=== PATIENT | female | born 1980 | race Caucasian/White ===

== ENCOUNTER 2017-03-13 03:23 | Emergency (ER) | payer SELFPAY ==
[~2017-03-13] VITALS: Ht 172.7 cm; Wt 172.4 kg
[~2017-03-13 03:23] MED LIST: ANTOXYBENA OT; ATOR10; ATOR40TA PO; Adipex-P37.5 M1 PO; Amaryl2 MG PO; Aspirin EC325 MG PO; Avastin25 MG/ML; BUPR150ER PO; CEPH500 PO; CLIN300 PO; CYCL10 PO; DIPATR PO; FURO20 PO; FURO80 PO; GLIP2.5ER PO; HYDACE5 PO; HYDACE5325 PO; INSDET100 SC; INSU7030P SUBQ; INSULANPEN SC; LEVEMIR FL100 UNIT/1; METF500 PO; METF850 PO; Norco 5-325 Ta1 EACH PO; Novolin R100 UNIT/M SC; ONDA4ODT MM; ONDA4ODT PO; OXYACE5T PO; PANT20 PO; PHENTERMINE; POTCHL20ER PO; PROM25 PO; RXCYCL10 PO; RXOXYACE PO; SULTRIDS PO; SULTRISS PO; Synthroid100 MCG PO; TOPI100 PO; Zofran Odt8 MG SL; [UNRECOGNIZED DRUG - OTHER] SC; levothyroxine PO; potasium
[2017-03-13 04:24] LABS: Source, Urine Clean Catch
[2017-03-13 04:29] LABS: Bilirubin, Urine Neg (Neg); Blood, Urine Neg (Neg); Glucose Qualitative, Urine 4+ (Neg); Ketones, Urine Neg (Neg); Leukocyte Esterase, Urine Neg (Neg); Nitrite, Urine Neg (Neg); Protein, Urine Neg (Neg); Specific Gravity, Urine 1.015 (1.003-1.022); Urobilinogen, Urine NORM (Normal)
[2017-03-13 04:31] LABS: Appearance, Urine Clear (Clear); Color, Urine Yellow (P-Yellow)
[2017-03-13 05:00] LABS: Calcium, Ionized (POC) 1.17 mmol/L (1.10-1.46); Chloride (POC) 98 mmol/L (98-108); Creatinine (POC) 0.5 mg/dL (0.6-1.0); Glucose (ISTAT POC) 345 mg/dL (70-99); Hemoglobin (POC) 13.6 g/dL (12.0-16.0); Potassium (POC) 3.9 mmol/L (3.5-5.5); Sodium (POC) 135 mmol/L (135-148); Total CO2 (POC) 26 mmol/L (21-32)
[2017-03-13 05:55] LABS: BASOPHILS ABSOLUTE AUTO 0.03 K/mm3 (0.00-0.23); BASOPHILS PERCENT AUTO 0 % (0-2); EOSINOPHILS ABSOLUTE AUTO 0.27 K/mm3 (0.00-0.68); EOSINOPHILS PERCENT AUTO 3 % (0-6); Hematocrit 38.3 % (33.0-51.0); IMMATURE GRAN ABSOLUTE AUTO 0.05 K/mm3 (0.00-0.10); IMMATURE GRAN PERCENT AUTO 1 % (0-1); LYMPHOCYTES ABSOLUTE AUTO 2.57 K/mm3 (0.84-5.20); LYMPHOCYTES PERCENT AUTO 24 % (21-46); MONOCYTES PERCENT AUTO 7 % (4-13); Mean Corpuscular HGB 30.8 pg (26.0-34.0); Mean Corpuscular HGB Conc 33.9 g/dL (31.5-36.5); Mean Corpuscular Volume 91 fL (80-100); NEUTROPHILS ABSOLUTE AUTO 7.22 K/mm3 (1.96-9.15); NEUTROPHILS PERCENT AUTO 66 % (41-73); Platelet Count 198 K/mm3 (150-400); RDW Coefficient Variation 13.5 % (11.7-14.2); RDW Standard Deviation 45.7 fL (35.1-46.3); Red Blood Cell Count 4.22 M/mm3 (3.80-5.20); White Blood Cell Count 10.94 K/mm3 (4.00-11.30)
[2017-03-13 06:18] LABS: Beta-hydroxybutyrate 1.3 mg/dL (0.2-2.8); Magnesium, Blood 1.9 mg/dL (1.6-2.4)
[2017-03-13 06:32] LABS: Alanine Aminotransfer (ALT/SGP 28 U/L (12-78); Albumin, Blood 3.4 g/dL (3.4-5.0); Albumin/Globulin Ratio 0.9 (0.8-1.8); Alk Phos 80 U/L (50-136); Anion Gap 7 mmol/L (6-16); Aspartate Aminotrans (AST/SGOT 12 U/L (12-37); Bilirubin, Total 0.9 mg/dL (0.1-1.0); Blood Urea Nitrogen 16 mg/dL (8-24); Bun/Creatinine Ratio 36.2 (12.0-20.0); CO2, Blood 28 mmol/L (21-32); Calcium, Blood 8.9 mg/dL (8.5-10.1); Chloride, Blood 100 mmol/L (98-108); Creatinine, Blood 0.44 mg/dL (0.40-1.00); Globulin, Blood 3.8 g/dL (2.2-4.0); Glomerular Filtration Rate >60 (60-); Glucose, Blood 316 mg/dL (70-99); Potassium, Blood 3.7 mmol/L (3.5-5.5); Sodium, Blood 135 mmol/L (136-145); Total Protein, Blood 7.2 g/dL (6.4-8.2)
[2017-03-13] MEDS ORDERED: Norco 5-325 Ta1 EACH PO (06:41)
[2017-03-13] MEDS ORDERED: Keflex500 MG PO (06:41)
[2017-03-13] MEDS ORDERED: Bactrim 400-801 EACH PO (06:41)
[2017-09-23] MEDS ORDERED: PROM25 PO (13:16)
[2017-09-23] MEDS ORDERED: Abilify2 MG (13:36)
[2017-09-24] MEDS ORDERED: Omeprazole20 M1 PO (13:47)
[2017-09-24] MEDS ORDERED: ONDA4ODT MM (13:47)
[2017-09-24] MEDS ORDERED: PROM25S PR (13:47)
[2017-09-24] MEDS ORDERED: SUCR1 PO (13:47)
[2017-11-25] MEDS ORDERED: Diflucan100 MG PO (19:51)
[2017-11-25] MEDS ORDERED: CEFD300 PO (19:51)
== END 2017-03-13 08:46 | disposition home or self-care (01) ==
LOC: ER 03:23
PROVIDERS: Emergency Medicine
DX: L02.211 Cutaneous abscess of abdominal wall (principal); N83.202 Unspecified ovarian cyst, left side; E11.65 Type 2 diabetes mellitus with hyperglycemia; E66.01 Morbid (severe) obesity due to excess calories; Z91.018 Allergy to other foods; Z91.048 Other nonmedicinal substance allergy status; Z90.49 Acquired absence of other specified parts of digestive tract; Z68.43 Body mass index [BMI] 50.0-59.9, adult
CPT/HCPCS: 36415; 74177; 80047; 80053; 81003; 81025; 82010; 83605; 83735; 85014; 85025; 96361; 96365; 96366; 96375; 99284; J1885; J3370; J7030; J7050; Q9967

== ENCOUNTER 2017-07-15 11:38 | Emergency (ER) | payer OTHER ==
[~2017-07-15] VITALS: Ht 172.7 cm; Wt 169.2 kg
[~2017-07-15 11:38] MED LIST changes: +Bactrim 400-801 EACH PO; +Keflex500 MG PO
[2017-07-15] MEDS ORDERED: Prednisone20 MG PO (12:35)
[2017-07-15] MEDS ORDERED: Percocet 5-3251 EACH PO (12:35)
== END 2017-07-15 12:53 | disposition home or self-care (01) ==
LOC: ER 11:38
DX: M54.41 Lumbago with sciatica, right side (principal); Z91.018 Allergy to other foods; Z91.048 Other nonmedicinal substance allergy status; E11.9 Type 2 diabetes mellitus without complications
CPT/HCPCS: 81025

== ENCOUNTER 2017-07-18 05:36 | Emergency (ER) | payer OTHER ==
[~2017-07-18] VITALS: Ht 172.7 cm; Wt 169.2 kg
[~2017-07-18 05:36] MED LIST changes: +Percocet 5-3251 EACH PO; +Prednisone20 MG PO
[2017-07-18] MEDS ORDERED: Norco 10-325 T1 EACH PO (06:59)
[2017-07-18] MEDS ORDERED: Valium5 MG PO (06:59)
== END 2017-07-18 07:56 | disposition home or self-care (01) ==
LOC: ER 05:36
DX: E11.9 Type 2 diabetes mellitus without complications (principal); Z91.018 Allergy to other foods
CPT/HCPCS: J2550; J3010

== ENCOUNTER → 2017-10-14 | Outpatient (CLI) | payer OTHER ==
[~2017-10-14] MED LIST changes: +Abilify2 MG; +Norco 10-325 T1 EACH PO; +Omeprazole20 M1 PO; +PROM25S PR; +SUCR1 PO; +Valium5 MG PO
[2017-10-14 11:26] LABS: BASOPHILS ABSOLUTE AUTO 0.02 K/mm3 (0.00-0.23); BASOPHILS PERCENT AUTO 0 % (0-2); EOSINOPHILS ABSOLUTE AUTO 0.07 K/mm3 (0.00-0.68); EOSINOPHILS PERCENT AUTO 1 % (0-6); Hematocrit 42.6 % (33.0-51.0); Hemoglobin 15.1 g/dL (11.5-16.0); IMMATURE GRAN ABSOLUTE AUTO 0.03 K/mm3 (0.00-0.10); IMMATURE GRAN PERCENT AUTO 0 % (0-1); LYMPHOCYTES PERCENT AUTO 15 % (21-46); MONOCYTES ABSOLUTE AUTO 0.43 K/mm3 (0.16-1.47); MONOCYTES PERCENT AUTO 5 % (4-13); Mean Corpuscular HGB 32.1 pg (26.0-34.0); Mean Corpuscular HGB Conc 35.4 g/dL (31.5-36.5); Mean Corpuscular Volume 91 fL (80-100); Mean Platelet Volume 9.8 fL (9.1-12.4); NEUTROPHILS ABSOLUTE AUTO 7.06 K/mm3 (1.96-9.15); NEUTROPHILS PERCENT AUTO 79 % (41-73); Platelet Count 219 K/mm3 (150-400); RDW Coefficient Variation 13.6 % (11.7-14.2); RDW Standard Deviation 44.7 fL (35.1-46.3); White Blood Cell Count 8.91 K/mm3 (4.00-11.30)
[2017-10-14 11:42] LABS: Alanine Aminotransfer (ALT/SGP 47 U/L (12-78); Albumin, Blood 3.9 g/dL (3.4-5.0); Albumin/Globulin Ratio 1.1 (0.8-1.8); Alk Phos 63 U/L (40-126); Anion Gap 10 mmol/L (6-16); Aspartate Aminotrans (AST/SGOT 20 U/L (12-37); Bilirubin, Total 1.9 mg/dL (0.1-1.0); Blood Urea Nitrogen 16 mg/dL (8-24); Bun/Creatinine Ratio 22.9 (12.0-20.0); CO2, Blood 26 mmol/L (21-32); Calcium, Blood 9.3 mg/dL (8.5-10.1); Chloride, Blood 97 mmol/L (98-108); Globulin, Blood 3.7 g/dL (2.2-4.0); Glomerular Filtration Rate >60 (60-); Glucose, Blood 376 mg/dL (70-99); Potassium, Blood 3.9 mmol/L (3.5-5.5); Sodium, Blood 133 mmol/L (136-145); Total Protein, Blood 7.6 g/dL (6.4-8.2); Troponin I <0.017 ng/mL (0.000-0.040)
== END | disposition home or self-care (01) ==
LOC: LAB SHORT 11:23 → LAB EV 11:23
PROVIDERS: Physician Assistant Medical
DX: R07.9 Chest pain, unspecified (principal); R10.13 Epigastric pain
CPT/HCPCS: 80053; 83690; 84484; 85025

== ENCOUNTER 2017-10-18 15:01 | Emergency (ER) | payer OTHER ==
[~2017-10-18] VITALS: Ht 172.7 cm; Wt 150.1 kg
[2017-10-18 15:52] LABS: BASOPHILS ABSOLUTE AUTO 0.01 K/mm3 (0.00-0.23); BASOPHILS PERCENT AUTO 0 % (0-2); EOSINOPHILS ABSOLUTE AUTO 0.04 K/mm3 (0.00-0.68); EOSINOPHILS PERCENT AUTO 1 % (0-6); Hematocrit 41.6 % (33.0-51.0); Hemoglobin 14.5 g/dL (11.5-16.0); IMMATURE GRAN ABSOLUTE AUTO 0.03 K/mm3 (0.00-0.10); IMMATURE GRAN PERCENT AUTO 0 % (0-1); LYMPHOCYTES ABSOLUTE AUTO 1.16 K/mm3 (0.84-5.20); LYMPHOCYTES PERCENT AUTO 16 % (21-46); MONOCYTES ABSOLUTE AUTO 0.32 K/mm3 (0.16-1.47); MONOCYTES PERCENT AUTO 4 % (4-13); Mean Corpuscular HGB 31.9 pg (26.0-34.0); Mean Corpuscular HGB Conc 34.9 g/dL (31.5-36.5); Mean Corpuscular Volume 92 fL (80-100); NEUTROPHILS ABSOLUTE AUTO 5.72 K/mm3 (1.96-9.15); NEUTROPHILS PERCENT AUTO 79 % (41-73); Platelet Count 224 K/mm3 (150-400); RDW Coefficient Variation 13.4 % (11.7-14.2); RDW Standard Deviation 45.5 fL (35.1-46.3); Red Blood Cell Count 4.54 M/mm3 (3.80-5.20); White Blood Cell Count 7.28 K/mm3 (4.00-11.30)
[2017-10-18 15:54] LABS: Alanine Aminotransfer (ALT/SGP 47 U/L (12-78); Albumin, Blood 3.6 g/dL (3.4-5.0); Alk Phos 60 U/L (50-136); Anion Gap 10 mmol/L (6-16); Aspartate Aminotrans (AST/SGOT 26 U/L (12-37); Bilirubin, Total 1.5 mg/dL (0.1-1.0); Blood Urea Nitrogen 11 mg/dL (8-24); Bun/Creatinine Ratio 28.6 (12.0-20.0); CO2, Blood 24 mmol/L (21-32); Calcium, Blood 8.7 mg/dL (8.5-10.1); Chloride, Blood 103 mmol/L (98-108); Creatinine, Blood 0.38 mg/dL (0.40-1.00); Globulin, Blood 3.7 g/dL (2.2-4.0); Glomerular Filtration Rate >60 (60-); Glucose, Blood 320 mg/dL (70-99); Potassium, Blood 3.7 mmol/L (3.5-5.5); Sodium, Blood 137 mmol/L (136-145); Total Protein, Blood 7.3 g/dL (6.4-8.2)
[2017-10-18] MEDS ORDERED: METO10 PO (18:06)
[2017-10-18] MEDS ORDERED: Carafate1 GM/10 ML PO (18:06)
== END 2017-10-18 18:30 | disposition home or self-care (01) ==
LOC: ER 15:01
PROVIDERS: Physician Assistant
DX: E11.65 Type 2 diabetes mellitus with hyperglycemia (principal); R10.12 Left upper quadrant pain; R11.2 Nausea with vomiting, unspecified; K21.9 Gastro-esophageal reflux disease without esophagitis; Z91.018 Allergy to other foods; Z91.048 Other nonmedicinal substance allergy status; Z79.899 Other long term (current) drug therapy
CPT/HCPCS: 36415; 80053; 83690; 85025; 96361; 96374; 96375; 99283-25; J2405; J2765; J3490; J7030

== ENCOUNTER → 2018-05-14 | Outpatient (CLI) | payer OTHER ==
[~2018-05-14] MED LIST changes: +CEFD300 PO; +Carafate1 GM/10 ML PO; +Diflucan100 MG PO; +METO10 PO
[2018-05-14 11:27] LABS: BASOPHILS ABSOLUTE AUTO 0.03 K/mm3 (0.00-0.23); BASOPHILS PERCENT AUTO 0 % (0-2); EOSINOPHILS ABSOLUTE AUTO 0.22 K/mm3 (0.00-0.68); EOSINOPHILS PERCENT AUTO 2 % (0-6); Hematocrit 42.8 % (33.0-51.0); Hemoglobin 14.7 g/dL (11.5-16.0); IMMATURE GRAN ABSOLUTE AUTO 0.05 K/mm3 (0.00-0.10); IMMATURE GRAN PERCENT AUTO 1 % (0-1); LYMPHOCYTES ABSOLUTE AUTO 1.63 K/mm3 (0.84-5.20); LYMPHOCYTES PERCENT AUTO 17 % (21-46); MONOCYTES PERCENT AUTO 5 % (4-13); Mean Corpuscular HGB 31.1 pg (26.0-34.0); Mean Corpuscular HGB Conc 34.3 g/dL (31.5-36.5); Mean Corpuscular Volume 91 fL (80-100); Mean Platelet Volume 10.4 fL (9.1-12.4); NEUTROPHILS ABSOLUTE AUTO 7.23 K/mm3 (1.96-9.15); NEUTROPHILS PERCENT AUTO 75 % (41-73); Platelet Count 205 K/mm3 (150-400); RDW Coefficient Variation 13.4 % (11.7-14.2); RDW Standard Deviation 44.7 fL (35.1-46.3); Red Blood Cell Count 4.73 M/mm3 (3.80-5.20); White Blood Cell Count 9.66 K/mm3 (4.00-11.30)
[2018-05-14 11:36] LABS: Anion Gap 10 mmol/L (6-16); Blood Urea Nitrogen 11 mg/dL (8-24); Bun/Creatinine Ratio 16.7 (12.0-20.0); CO2, Blood 27 mmol/L (21-32); Calcium, Blood 8.9 mg/dL (8.5-10.1); Chloride, Blood 101 mmol/L (98-108); Creatinine, Blood 0.66 mg/dL (0.40-1.00); Glomerular Filtration Rate >60 (60-); Glucose, Blood 339 mg/dL (70-99); Sodium, Blood 138 mmol/L (136-145)
== END | disposition home or self-care (01) ==
LOC: LAB EV 11:18 → LAB SHORT 11:18
PROVIDERS: Physician Assistant Surgical
DX: N12 Tubulo-interstitial nephritis, not specified as acute or chronic (principal)
CPT/HCPCS: 80048; 85025; 87077; 87086; 87186

== ENCOUNTER 2018-05-20 09:15 | Emergency (ER) | payer OTHER ==
[~2018-05-20] VITALS: Ht 172.7 cm; Wt 163.3 kg
[2018-05-20 10:44] LABS: BASOPHILS ABSOLUTE AUTO 0.03 K/mm3 (0.00-0.23); BASOPHILS PERCENT AUTO 0 % (0-2); EOSINOPHILS ABSOLUTE AUTO 0.15 K/mm3 (0.00-0.68); EOSINOPHILS PERCENT AUTO 2 % (0-6); Hematocrit 41.4 % (33.0-51.0); Hemoglobin 13.9 g/dL (11.5-16.0); IMMATURE GRAN ABSOLUTE AUTO 0.04 K/mm3 (0.00-0.10); IMMATURE GRAN PERCENT AUTO 1 % (0-1); LYMPHOCYTES PERCENT AUTO 18 % (21-46); MONOCYTES ABSOLUTE AUTO 0.52 K/mm3 (0.16-1.47); MONOCYTES PERCENT AUTO 7 % (4-13); Mean Corpuscular HGB 31.5 pg (26.0-34.0); Mean Corpuscular HGB Conc 33.6 g/dL (31.5-36.5); Mean Corpuscular Volume 94 fL (80-100); Mean Platelet Volume 10.3 fL (9.1-12.4); NEUTROPHILS ABSOLUTE AUTO 5.57 K/mm3 (1.96-9.15); NEUTROPHILS PERCENT AUTO 72 % (41-73); Platelet Count 188 K/mm3 (150-400); RDW Coefficient Variation 13.2 % (11.7-14.2); RDW Standard Deviation 45.5 fL (35.1-46.3); Red Blood Cell Count 4.41 M/mm3 (3.80-5.20); White Blood Cell Count 7.71 K/mm3 (4.00-11.30)
[2018-05-20 11:26] LABS: Alanine Aminotransfer (ALT/SGP 29 U/L (12-78); Albumin, Blood 3.6 g/dL (3.4-5.0); Albumin/Globulin Ratio 0.9 (0.8-1.8); Alk Phos 80 U/L (50-136); Anion Gap 7 mmol/L (6-16); Aspartate Aminotrans (AST/SGOT 14 U/L (12-37); Blood Urea Nitrogen 10 mg/dL (8-24); Bun/Creatinine Ratio 27.3 (12.0-20.0); CO2, Blood 25 mmol/L (21-32); Calcium, Blood 8.8 mg/dL (8.5-10.1); Chloride, Blood 104 mmol/L (98-108); Creatinine, Blood 0.37 mg/dL (0.40-1.00); Globulin, Blood 3.8 g/dL (2.2-4.0); Glomerular Filtration Rate >60 (60-); Glucose, Blood 336 mg/dL (70-99); Sodium, Blood 136 mmol/L (136-145); Total Protein, Blood 7.4 g/dL (6.4-8.2)
[2018-05-20 11:58] LABS: Source, Urine Clean Catch
[2018-05-20 12:02] LABS: Bilirubin, Urine Neg (Neg); Blood, Urine Neg (Neg); Glucose Qualitative, Urine 4+ (Neg); Ketones, Urine 3+ (Neg); Leukocyte Esterase, Urine Neg (Neg); Nitrite, Urine Neg (Neg); Protein, Urine Neg (Neg); Specific Gravity, Urine 1.015 (1.003-1.022); Urobilinogen, Urine NORM (Normal); pH, Urine 6.5 (5.0-8.0)
[2018-05-20 12:05] LABS: Appearance, Urine Clear (Clear); Color, Urine Yellow (P-Yellow)
[2018-05-20] MEDS ORDERED: Flagyl500 MG PO (12:14)
== END 2018-05-20 12:46 | disposition home or self-care (01) ==
LOC: ER 09:15
PROVIDERS: Emergency Medicine
DX: N83.202 Unspecified ovarian cyst, left side (principal); R19.7 Diarrhea, unspecified; E11.65 Type 2 diabetes mellitus with hyperglycemia; Z91.018 Allergy to other foods; Z91.048 Other nonmedicinal substance allergy status; Z79.899 Other long term (current) drug therapy
CPT/HCPCS: 74176; 80053; 81003; 82947; 83690; 85025; 96361; 96374; 99284-25; J2405; J7030

== ENCOUNTER 2018-08-13 18:15 | Emergency (ER) | payer OTHER ==
[~2018-08-13] VITALS: Ht 172.7 cm; Wt 161.0 kg
[~2018-08-13 18:15] MED LIST changes: +Flagyl500 MG PO
[2018-08-13 19:03] LABS: BASOPHILS ABSOLUTE AUTO 0.03 K/mm3 (0.00-0.23); BASOPHILS PERCENT AUTO 0 % (0-2); EOSINOPHILS ABSOLUTE AUTO 0.08 K/mm3 (0.00-0.68); EOSINOPHILS PERCENT AUTO 1 % (0-6); Hematocrit 45.1 % (33.0-51.0); Hemoglobin 15.7 g/dL (11.5-16.0); IMMATURE GRAN ABSOLUTE AUTO 0.03 K/mm3 (0.00-0.10); IMMATURE GRAN PERCENT AUTO 0 % (0-1); LYMPHOCYTES ABSOLUTE AUTO 1.88 K/mm3 (0.84-5.20); LYMPHOCYTES PERCENT AUTO 19 % (21-46); MONOCYTES ABSOLUTE AUTO 0.59 K/mm3 (0.16-1.47); MONOCYTES PERCENT AUTO 6 % (4-13); Mean Corpuscular HGB 31.3 pg (26.0-34.0); Mean Corpuscular HGB Conc 34.8 g/dL (31.5-36.5); Mean Corpuscular Volume 90 fL (80-100); Mean Platelet Volume 10.7 fL (9.1-12.4); NEUTROPHILS ABSOLUTE AUTO 7.29 K/mm3 (1.96-9.15); NEUTROPHILS PERCENT AUTO 74 % (41-73); Platelet Count 229 K/mm3 (150-400); RDW Standard Deviation 42.5 fL (35.1-46.3); Red Blood Cell Count 5.02 M/mm3 (3.80-5.20)
[2018-08-13 19:17] LABS: Alanine Aminotransfer (ALT/SGP 30 U/L (12-78); Albumin, Blood 4.1 g/dL (3.4-5.0); Alk Phos 88 U/L (50-136); Anion Gap 13 mmol/L (6-16); Aspartate Aminotrans (AST/SGOT 30 U/L (12-37); Bilirubin, Total 1.6 mg/dL (0.1-1.0); Blood Urea Nitrogen 14 mg/dL (8-24); CO2, Blood 20 mmol/L (21-32); Calcium, Blood 9.6 mg/dL (8.5-10.1); Chloride, Blood 103 mmol/L (98-108); Creatinine, Blood 0.42 mg/dL (0.40-1.00); Globulin, Blood 4.3 g/dL (2.2-4.0); Glomerular Filtration Rate >60 (60-); Glucose, Blood 395 mg/dL (70-99); Potassium, Blood 4.6 mmol/L (3.5-5.5); Sodium, Blood 136 mmol/L (136-145); Total Protein, Blood 8.4 g/dL (6.4-8.2)
[2018-08-13] MEDS ORDERED: Omeprazole20 M1 PO (20:13)
[2018-08-13] MEDS ORDERED: ONDA4ODT MM (20:13)
[2018-08-13] MEDS ORDERED: ACETAMINOPHEN500 MG PO (20:14)
[2018-08-13 20:27] LABS: Source, Urine Clean Catch
[2018-08-13 20:31] LABS: Bilirubin, Urine Neg (Neg); Blood, Urine 1+ (Neg); Glucose Qualitative, Urine 4+ (Neg); Ketones, Urine 4+ (Neg); Leukocyte Esterase, Urine 1+ (Neg); Nitrite, Urine Neg (Neg); Protein, Urine 1+ (Neg); Specific Gravity, Urine 1.015 (1.003-1.022); Urobilinogen, Urine NORM (Normal)
[2018-08-13 20:46] LABS: Appearance, Urine Hazy (Clear); Color, Urine Yellow (P-Yellow)
[2018-08-13 20:47] LABS: White Blood Cells, Urine 25-50 /hpf (0-5)
[2018-08-13 20:48] LABS: Bacteria Few /hpf; Red Blood Cells, Urine 0-2 /hpf (0-2); Squamous Epithelial Cells Many /hpf (Few)
== END 2018-08-13 20:34 | disposition home or self-care (01) ==
LOC: ER 18:15
PROVIDERS: Physician Assistant
DX: K27.9 Peptic ulcer, site unspecified, unspecified as acute or chronic, without hemorrhage or perforation (principal); E11.9 Type 2 diabetes mellitus without complications; F17.210 Nicotine dependence, cigarettes, uncomplicated; Z79.899 Other long term (current) drug therapy
CPT/HCPCS: 36415; 74176; 80053; 81001; 83690; 85025; 87077; 87086; 87186; 96374; 99284-25; J1630

== ENCOUNTER 2018-08-15 12:27 | Emergency (ER) | payer OTHER ==
[~2018-08-15] VITALS: Ht 172.7 cm; Wt 158.8 kg
[~2018-08-15 12:27] MED LIST changes: +ACETAMINOPHEN500 MG PO
[2018-08-15 13:06] LABS: BASOPHILS ABSOLUTE AUTO 0.02 K/mm3 (0.00-0.23); BASOPHILS PERCENT AUTO 0 % (0-2); EOSINOPHILS PERCENT AUTO 1 % (0-6); Hematocrit 42.2 % (33.0-51.0); Hemoglobin 14.4 g/dL (11.5-16.0); IMMATURE GRAN ABSOLUTE AUTO 0.03 K/mm3 (0.00-0.10); IMMATURE GRAN PERCENT AUTO 0 % (0-1); LYMPHOCYTES ABSOLUTE AUTO 1.56 K/mm3 (0.84-5.20); LYMPHOCYTES PERCENT AUTO 19 % (21-46); MONOCYTES ABSOLUTE AUTO 0.46 K/mm3 (0.16-1.47); MONOCYTES PERCENT AUTO 6 % (4-13); Mean Corpuscular HGB 30.6 pg (26.0-34.0); Mean Corpuscular HGB Conc 34.1 g/dL (31.5-36.5); Mean Corpuscular Volume 90 fL (80-100); Mean Platelet Volume 9.8 fL (9.1-12.4); NEUTROPHILS ABSOLUTE AUTO 6.27 K/mm3 (1.96-9.15); NEUTROPHILS PERCENT AUTO 74 % (41-73); Platelet Count 201 K/mm3 (150-400); White Blood Cell Count 8.44 K/mm3 (4.00-11.30)
[2018-08-15 13:30] LABS: Alanine Aminotransfer (ALT/SGP 23 U/L (12-78); Albumin, Blood 3.6 g/dL (3.4-5.0); Alk Phos 76 U/L (50-136); Anion Gap 9 mmol/L (6-16); Aspartate Aminotrans (AST/SGOT 16 U/L (12-37); Bilirubin, Total 1.1 mg/dL (0.1-1.0); Blood Urea Nitrogen 17 mg/dL (8-24); Bun/Creatinine Ratio 35.6 (12.0-20.0); CO2, Blood 24 mmol/L (21-32); Chloride, Blood 103 mmol/L (98-108); Creatinine, Blood 0.48 mg/dL (0.40-1.00); Globulin, Blood 3.6 g/dL (2.2-4.0); Glomerular Filtration Rate >60 (60-); Glucose, Blood 415 mg/dL (70-99); Potassium, Blood 4.3 mmol/L (3.5-5.5); Sodium, Blood 136 mmol/L (136-145); Total Protein, Blood 7.2 g/dL (6.4-8.2)
[2018-08-15] MEDS ORDERED: PROM25 PR (14:33)
== END 2018-08-15 14:41 | disposition home or self-care (01) ==
LOC: ER 12:27
PROVIDERS: Emergency Medicine
DX: R11.2 Nausea with vomiting, unspecified (principal); R10.13 Epigastric pain; F43.9 Reaction to severe stress, unspecified; E11.9 Type 2 diabetes mellitus without complications; K21.9 Gastro-esophageal reflux disease without esophagitis; F17.210 Nicotine dependence, cigarettes, uncomplicated; Z91.018 Allergy to other foods; Z91.048 Other nonmedicinal substance allergy status; Z79.899 Other long term (current) drug therapy
CPT/HCPCS: 36415; 80053; 83690; 84484; 85025; 93005; 93010; 96374; 96375; 99284-25; J1200; J1630; J2405; J7120

== ENCOUNTER 2018-08-18 06:14 | Emergency (ER) | payer OTHER ==
[~2018-08-18] VITALS: Ht 172.7 cm; Wt 158.8 kg
[~2018-08-18 06:14] MED LIST changes: +PROM25 PR
[2018-08-18 07:39] LABS: BASOPHILS ABSOLUTE AUTO 0.02 K/mm3 (0.00-0.23); BASOPHILS PERCENT AUTO 0 % (0-2); EOSINOPHILS ABSOLUTE AUTO 0.05 K/mm3 (0.00-0.68); EOSINOPHILS PERCENT AUTO 1 % (0-6); Hematocrit 43.9 % (33.0-51.0); Hemoglobin 15.2 g/dL (11.5-16.0); IMMATURE GRAN ABSOLUTE AUTO 0.08 K/mm3 (0.00-0.10); IMMATURE GRAN PERCENT AUTO 1 % (0-1); LYMPHOCYTES PERCENT AUTO 19 % (21-46); MONOCYTES ABSOLUTE AUTO 0.58 K/mm3 (0.16-1.47); MONOCYTES PERCENT AUTO 6 % (4-13); Mean Corpuscular HGB 31.1 pg (26.0-34.0); Mean Corpuscular HGB Conc 34.6 g/dL (31.5-36.5); Mean Corpuscular Volume 90 fL (80-100); Mean Platelet Volume 9.9 fL (9.1-12.4); NEUTROPHILS ABSOLUTE AUTO 6.72 K/mm3 (1.96-9.15); NEUTROPHILS PERCENT AUTO 74 % (41-73); Platelet Count 209 K/mm3 (150-400); RDW Coefficient Variation 12.9 % (11.7-14.2); RDW Standard Deviation 42.3 fL (35.1-46.3); Red Blood Cell Count 4.88 M/mm3 (3.80-5.20); White Blood Cell Count 9.15 K/mm3 (4.00-11.30)
[2018-08-18] MEDS ORDERED: PHENERGAN25 MG PR (07:42)
[2018-08-18 07:58] LABS: Alanine Aminotransfer (ALT/SGP 24 U/L (12-78); Albumin, Blood 3.7 g/dL (3.4-5.0); Albumin/Globulin Ratio 0.9 (0.8-1.8); Alk Phos 78 U/L (50-136); Anion Gap 14 mmol/L (6-16); Aspartate Aminotrans (AST/SGOT 17 U/L (12-37); Bilirubin, Total 1.8 mg/dL (0.1-1.0); Blood Urea Nitrogen 14 mg/dL (8-24); Bun/Creatinine Ratio 28.6 (12.0-20.0); CO2, Blood 22 mmol/L (21-32); Calcium, Blood 8.9 mg/dL (8.5-10.1); Chloride, Blood 97 mmol/L (98-108); Creatinine, Blood 0.49 mg/dL (0.40-1.00); Glomerular Filtration Rate >60 (60-); Glucose, Blood 366 mg/dL (70-99); Potassium, Blood 3.7 mmol/L (3.5-5.5); Sodium, Blood 133 mmol/L (136-145); Total Protein, Blood 7.7 g/dL (6.4-8.2)
== END 2018-08-18 08:34 | disposition home or self-care (01) ==
LOC: ER 06:14
PROVIDERS: Emergency Medicine
DX: E11.65 Type 2 diabetes mellitus with hyperglycemia (principal); Z91.048 Other nonmedicinal substance allergy status; Z91.018 Allergy to other foods; K21.9 Gastro-esophageal reflux disease without esophagitis; F17.210 Nicotine dependence, cigarettes, uncomplicated
CPT/HCPCS: 80053; 83690; 85025; 96374; 96375; 99283-25; C9113; J1630

== ENCOUNTER → 2018-08-20 | Outpatient (CLI) | payer OTHER ==
[~2018-08-20] MED LIST changes: +Cymbalta20 MG PO; +DULO60; +PHENERGAN25 MG PR
[2018-08-20 10:00] LABS: BASOPHILS ABSOLUTE AUTO 0.03 K/mm3 (0.00-0.23); BASOPHILS PERCENT AUTO 0 % (0-2); EOSINOPHILS ABSOLUTE AUTO 0.03 K/mm3 (0.00-0.68); EOSINOPHILS PERCENT AUTO 0 % (0-6); Hematocrit 41.7 % (33.0-51.0); Hemoglobin 14.6 g/dL (11.5-16.0); IMMATURE GRAN ABSOLUTE AUTO 0.06 K/mm3 (0.00-0.10); IMMATURE GRAN PERCENT AUTO 1 % (0-1); LYMPHOCYTES ABSOLUTE AUTO 1.81 K/mm3 (0.84-5.20); LYMPHOCYTES PERCENT AUTO 20 % (21-46); MONOCYTES ABSOLUTE AUTO 0.46 K/mm3 (0.16-1.47); MONOCYTES PERCENT AUTO 5 % (4-13); Mean Corpuscular HGB 31.3 pg (26.0-34.0); Mean Corpuscular Volume 90 fL (80-100); Mean Platelet Volume 10.1 fL (9.1-12.4); NEUTROPHILS ABSOLUTE AUTO 6.76 K/mm3 (1.96-9.15); NEUTROPHILS PERCENT AUTO 74 % (41-73); Platelet Count 256 K/mm3 (150-400); RDW Standard Deviation 42.5 fL (35.1-46.3); Red Blood Cell Count 4.66 M/mm3 (3.80-5.20); White Blood Cell Count 9.15 K/mm3 (4.00-11.30)
[2018-08-20 10:10] LABS: Alanine Aminotransfer (ALT/SGP 29 U/L (12-78); Albumin, Blood 3.6 g/dL (3.4-5.0); Albumin/Globulin Ratio 0.9 (0.8-1.8); Alk Phos 70 U/L (50-136); Anion Gap 17 mmol/L (6-16); Aspartate Aminotrans (AST/SGOT 16 U/L (12-37); Bilirubin, Total 1.5 mg/dL (0.1-1.0); Blood Urea Nitrogen 13 mg/dL (8-24); CO2, Blood 18 mmol/L (21-32); Calcium, Blood 8.5 mg/dL (8.5-10.1); Chloride, Blood 99 mmol/L (98-108); Creatinine, Blood 0.43 mg/dL (0.40-1.00); Globulin, Blood 3.9 g/dL (2.2-4.0); Glomerular Filtration Rate >60 (60-); Glucose, Blood 333 mg/dL (70-99); Potassium, Blood 3.7 mmol/L (3.5-5.5); Sodium, Blood 134 mmol/L (136-145); Total Protein, Blood 7.5 g/dL (6.4-8.2)
[2018-08-20 12:14] LABS: Source, Urine Clean Catch
[2018-08-20 14:18] LABS: Bilirubin, Urine Neg (Neg); Blood, Urine 3+ (Neg); Glucose Qualitative, Urine 4+ (Neg); Ketones, Urine 4+ (Neg); Leukocyte Esterase, Urine Neg (Neg); Nitrite, Urine Neg (Neg); Protein, Urine 1+ (Neg); Urobilinogen, Urine NORM (Normal)
[2018-08-20 14:27] LABS: Appearance, Urine Clear (Clear); Color, Urine Yellow (P-Yellow)
[2018-08-20 14:28] LABS: Bacteria Few /hpf; Squamous Epithelial Cells Few /hpf (Few); White Blood Cells, Urine 0-2 /hpf (0-5)
== END | disposition home or self-care (01) ==
LOC: LAB SHORT 08:58 → LAB 08:58
PROVIDERS: Nurse Practitioner
DX: E11.43 Type 2 diabetes mellitus with diabetic autonomic (poly)neuropathy (principal); K31.84 Gastroparesis; E86.0 Dehydration
CPT/HCPCS: 80053; 81001; 85025

== ENCOUNTER 2018-08-21 00:50 | Emergency (ER) | payer OTHER ==
[~2018-08-21 00:50] MED LIST changes: -Cymbalta20 MG PO; -DULO60
[2018-08-22] MEDS ORDERED: DULO60 (07:14)
[2018-08-22] MEDS ORDERED: Cymbalta20 MG PO (14:51)
== END 2018-08-21 02:30 | disposition left against medical advice (07) ==
LOC: ER 00:50
DX: Z53.21 Procedure and treatment not carried out due to patient leaving prior to being seen by health care provider (principal); R11.2 Nausea with vomiting, unspecified

== ENCOUNTER 2018-08-21 22:08 | Inpatient (IN) | payer OTHER ==
[~2018-08-21] VITALS: Ht 172.7 cm; Wt 156.5 kg
[2018-08-21 23:17] LABS: Source, Urine Clean Catch
[2018-08-21 23:19] LABS: Bilirubin, Urine Neg (Neg); Blood, Urine 5+ (Neg); Glucose Qualitative, Urine 4+ (Neg); Ketones, Urine 4+ (Neg); Leukocyte Esterase, Urine Neg (Neg); Nitrite, Urine Neg (Neg); Protein, Urine 2+ (Neg); Specific Gravity, Urine 1.025 (1.003-1.022); Urobilinogen, Urine 1+ (Normal)
[2018-08-21 23:20] LABS: Appearance, Urine Clear (Clear); Color, Urine Yellow (P-Yellow)
[2018-08-21 23:27] LABS: Amorphous Light ({null, 0-Heavy}); Bacteria Many /hpf; Mucus Light ({null, 0-Heavy}); Red Blood Cells, Urine Rare /hpf (0-2); Squamous Epithelial Cells Mod /hpf (Few); White Blood Cells, Urine 0-2 /hpf (0-5)
[2018-08-21 23:38] LABS: BASOPHILS ABSOLUTE AUTO 0.02 K/mm3 (0.00-0.23); BASOPHILS PERCENT AUTO 0 % (0-2); EOSINOPHILS ABSOLUTE AUTO 0.04 K/mm3 (0.00-0.68); EOSINOPHILS PERCENT AUTO 0 % (0-6); Hematocrit 41.3 % (33.0-51.0); Hemoglobin 14.2 g/dL (11.5-16.0); IMMATURE GRAN ABSOLUTE AUTO 0.05 K/mm3 (0.00-0.10); IMMATURE GRAN PERCENT AUTO 1 % (0-1); LYMPHOCYTES ABSOLUTE AUTO 1.76 K/mm3 (0.84-5.20); LYMPHOCYTES PERCENT AUTO 18 % (21-46); MONOCYTES ABSOLUTE AUTO 0.63 K/mm3 (0.16-1.47); MONOCYTES PERCENT AUTO 7 % (4-13); Mean Corpuscular HGB 31.2 pg (26.0-34.0); Mean Corpuscular HGB Conc 34.4 g/dL (31.5-36.5); Mean Corpuscular Volume 91 fL (80-100); Mean Platelet Volume 9.5 fL (9.1-12.4); NEUTROPHILS ABSOLUTE AUTO 7.07 K/mm3 (1.96-9.15); NEUTROPHILS PERCENT AUTO 74 % (41-73); Platelet Count 232 K/mm3 (150-400); RDW Coefficient Variation 13.1 % (11.7-14.2); RDW Standard Deviation 43.5 fL (35.1-46.3); Red Blood Cell Count 4.55 M/mm3 (3.80-5.20); White Blood Cell Count 9.57 K/mm3 (4.00-11.30)
[2018-08-22 00:01] LABS: Alanine Aminotransfer (ALT/SGP 27 U/L (12-78); Albumin, Blood 3.6 g/dL (3.4-5.0); Albumin/Globulin Ratio 0.9 (0.8-1.8); Alk Phos 70 U/L (50-136); Anion Gap 15 mmol/L (6-16); Aspartate Aminotrans (AST/SGOT 12 U/L (12-37); Bilirubin, Total 1.2 mg/dL (0.1-1.0); Blood Urea Nitrogen 8 mg/dL (8-24); Bun/Creatinine Ratio 19.5 (12.0-20.0); CO2, Blood 18 mmol/L (21-32); Calcium, Blood 8.9 mg/dL (8.5-10.1); Chloride, Blood 102 mmol/L (98-108); Creatinine, Blood 0.41 mg/dL (0.40-1.00); Globulin, Blood 3.8 g/dL (2.2-4.0); Glomerular Filtration Rate >60 (60-); Glucose, Blood 251 mg/dL (70-99); Potassium, Blood 3.4 mmol/L (3.5-5.5); Sodium, Blood 135 mmol/L (136-145); Total Protein, Blood 7.4 g/dL (6.4-8.2)
[2018-08-22 00:06] LABS: Beta-hydroxybutyrate 64.1 mg/dL (0.2-2.8)
[2018-08-22] MEDS ORDERED: DULO60 (07:14)
[2018-08-22 07:46] LABS: Hematocrit 42.4 % (33.0-51.0); Hemoglobin 14.5 g/dL (11.5-16.0); Mean Corpuscular HGB Conc 34.2 g/dL (31.5-36.5); Mean Corpuscular Volume 91 fL (80-100); Mean Platelet Volume 9.7 fL (9.1-12.4); Platelet Count 250 K/mm3 (150-400); RDW Coefficient Variation 13.1 % (11.7-14.2); RDW Standard Deviation 42.9 fL (35.1-46.3); Red Blood Cell Count 4.67 M/mm3 (3.80-5.20); White Blood Cell Count 9.34 K/mm3 (4.00-11.30)
[2018-08-22 08:03] LABS: Alanine Aminotransfer (ALT/SGP 24 U/L (12-78); Albumin, Blood 3.7 g/dL (3.4-5.0); Albumin/Globulin Ratio 0.9 (0.8-1.8); Alk Phos 72 U/L (50-136); Anion Gap 12 mmol/L (6-16); Aspartate Aminotrans (AST/SGOT 17 U/L (12-37); Bilirubin, Total 1.4 mg/dL (0.1-1.0); Blood Urea Nitrogen 6 mg/dL (8-24); Bun/Creatinine Ratio 13.6 (12.0-20.0); CO2, Blood 22 mmol/L (21-32); Calcium, Blood 8.7 mg/dL (8.5-10.1); Chloride, Blood 101 mmol/L (98-108); Creatinine, Blood 0.44 mg/dL (0.40-1.00); Globulin, Blood 3.9 g/dL (2.2-4.0); Glomerular Filtration Rate >60 (60-); Glucose, Blood 235 mg/dL (70-99); Potassium, Blood 3.5 mmol/L (3.5-5.5); Sodium, Blood 135 mmol/L (136-145); Total Protein, Blood 7.6 g/dL (6.4-8.2)
[2018-08-22 08:08] LABS: Free Thyroxine 1.35 ng/dL (0.70-1.60)
[2018-08-22 08:11] LABS: Thyroid Stimulating Hormone 2.05 uIU/mL (0.360-4.800)
[2018-08-22] MEDS ORDERED: Cymbalta20 MG PO (14:51)
--- NOTE | 2018-08-22 17:52 | NUR ---
LATE ENTRY RN WALKED INTO PATIENT ROOM TO FIND PATIENT KNEELING AT THE BEDSIDE RESTING HEAD ON THE BED MATTRESS. PATIENT STATES SHE LOST HER BALANCE AND THAT IS WHY SHE WAS SITTING THERE. RN DID NOT WITNESS THIS OCCUR. PATIENT STATED THIS POSITION WAS COMFORTABLE AND SHE WOULD LIKE TO STAY KNEELING AT THE BEDSIDE. LATER RN WALKED INTO THE ROOM TO FIND THE PATIENT LAYING ON THE FLOOR OF THE ROOM. PATIENT STATED THAT SHE LAID DOWN ON THE FLOOR BECASUE IT WAS COMFORTABLE.
[2018-08-22 18:22] LABS: Anion Gap 14 mmol/L (6-16); Blood Urea Nitrogen 7 mg/dL (8-24); Bun/Creatinine Ratio 15.9 (12.0-20.0); CO2, Blood 20 mmol/L (21-32); Calcium, Blood 8.7 mg/dL (8.5-10.1); Chloride, Blood 100 mmol/L (98-108); Creatinine, Blood 0.44 mg/dL (0.40-1.00); Glomerular Filtration Rate >60 (60-); Glucose, Blood 222 mg/dL (70-99); Potassium, Blood 3.3 mmol/L (3.5-5.5); Sodium, Blood 134 mmol/L (136-145)
--- NOTE | 2018-08-22 19:09 | NUR ---
LATE ENTRY PATIENT CAME TO FLOOR WITH 2ND BAG OF POTASSIUM RUNNING. PATIENT C/O IV DISCOMFORT AND REFUSED THE LAST HALF OF THE SECOND BAG OF POTASSIUM. FLUIDS RUNNING @ 100 ML/HR.
--- NOTE | 2018-08-23 04:36 | NUR ---
SHIFT SUMMARY PT HAS BEEN AWAKE T/O SHIFT WITH RECURRENT NAUSEA AND ABD DISCOMFORT. PT TX PER EMAR WITH GOOD EFFECT. PT HAD DIFFICULTY SLEEPING THIS SHIFT. PT CURRENTLY AWAKE AND IN NO DISTRESS. CALL LIGHT IN REACH.
[2018-08-23 14:02] LABS: BASOPHILS ABSOLUTE AUTO 0.01 K/mm3 (0.00-0.23); BASOPHILS PERCENT AUTO 0 % (0-2); EOSINOPHILS ABSOLUTE AUTO 0.07 K/mm3 (0.00-0.68); EOSINOPHILS PERCENT AUTO 1 % (0-6); Hemoglobin 13.4 g/dL (11.5-16.0); IMMATURE GRAN ABSOLUTE AUTO 0.03 K/mm3 (0.00-0.10); IMMATURE GRAN PERCENT AUTO 0 % (0-1); LYMPHOCYTES ABSOLUTE AUTO 2.44 K/mm3 (0.84-5.20); LYMPHOCYTES PERCENT AUTO 30 % (21-46); MONOCYTES ABSOLUTE AUTO 0.63 K/mm3 (0.16-1.47); MONOCYTES PERCENT AUTO 8 % (4-13); Mean Corpuscular HGB 31.5 pg (26.0-34.0); Mean Corpuscular HGB Conc 35.3 g/dL (31.5-36.5); Mean Corpuscular Volume 89 fL (80-100); Mean Platelet Volume 9.4 fL (9.1-12.4); NEUTROPHILS PERCENT AUTO 62 % (41-73); Platelet Count 202 K/mm3 (150-400); RDW Standard Deviation 42.4 fL (35.1-46.3); Red Blood Cell Count 4.26 M/mm3 (3.80-5.20); White Blood Cell Count 8.28 K/mm3 (4.00-11.30)
[2018-08-23 15:03] LABS: Anion Gap 11 mmol/L (6-16); Blood Urea Nitrogen 4 mg/dL (8-24); Bun/Creatinine Ratio 9.8 (12.0-20.0); CO2, Blood 24 mmol/L (21-32); Calcium, Blood 8.3 mg/dL (8.5-10.1); Chloride, Blood 102 mmol/L (98-108); Creatinine, Blood 0.41 mg/dL (0.40-1.00); Glomerular Filtration Rate >60 (60-); Glucose, Blood 190 mg/dL (70-99); Sodium, Blood 137 mmol/L (136-145)
--- NOTE | 2018-08-23 16:24 | NUR ---
Per admit trigger, I met with Sima to offer information regarding an Advanced Directive. She was really not interested.
--- NOTE | 2018-08-23 18:22 | NUR ---
PATIENT REMAINS NAUEATED AND PAINFUL. TREATING NAUSEA WITH COMPAZINE AND REGLAN. FENTANYL GIVEN X1 THIS SHIFT FOR ABD PAIN. ACHS BLOOD SUGARS, COVERAGE NEEDED WITH EACH MEAL. VERY LITTLE PO INTAKE TODAY. PATIENT UP INDEPENDENTLY IN ROOM. REFUSING LOVENOX. REFUSED LABS THIS AM, BUT DID ALLOW THEM TO DRAW THIS AFTERNOON.
--- NOTE | 2018-08-23 20:21 | NUR ---
1925: ASSUMED CARE OF PATIENT. PATIENT SLEEPING AT THIS TIME WITH FAMILY AT BEDSIDE. NO APPARENT DISTRESS NOTED. 20:22: PATIENT C/O NAUSEA. WENT TO GET IV MED BUT IV LEAKING UPON RETURN. PATIENT PREVIOUS AN U/S START. NOTIFIED SUPERVISOR MOLD YARD. GAVE BEDTIME MEDS. EDUCATED PATIENT TO CALL ME IF SHE HAD ANY EMESIS SO THAT I COULD SEE IT. WAITING ON ED RN TO RESTART IV. 2027: PATIENT ACTIVELY VOMITING. 500 ML RED TINGED FLUID AND BILE WITH DIFFUSE SEDIMENT. EDUCATED PATIENT TO AVOID RED DRINKS/ITEMS IF POSSIBLE. WILL CONTINUE TO MONITOR
[2018-08-24 12:18] LABS: Anion Gap 8 mmol/L (6-16); Blood Urea Nitrogen 3 mg/dL (8-24); Bun/Creatinine Ratio 7.8 (12.0-20.0); CO2, Blood 29 mmol/L (21-32); Calcium, Blood 8.6 mg/dL (8.5-10.1); Chloride, Blood 102 mmol/L (98-108); Creatinine, Blood 0.39 mg/dL (0.40-1.00); Glomerular Filtration Rate >60 (60-); Glucose, Blood 227 mg/dL (70-99); Potassium, Blood 3.1 mmol/L (3.5-5.5); Sodium, Blood 139 mmol/L (136-145)
--- NOTE | 2018-08-24 18:42 | NUR ---
PT. SLEEPING AT THIS TIME. SHE HAS SPENT QUITE AN EVENTFUL DAY. SHE HAS HAD ONGOING N/V T/O THE DAY, ALSO INCREASING PAIN T/O THE DAY. HAVE GIVEN FENTANYL TWICE TODAY . SEEMS TO HAVE EMESIS EVERY TIME SHE EATS HER CL OR DRINKS WATER. NO NOTEABLE CHANGES THIS SHIFT.
--- NOTE | 2018-08-25 07:37 | NUR ---
PATIENT SLEEPING AT SHIFT CHANGE. PATIENT C/O HEART BURN DURING THE NOC SHIFT AND RN REQUESTED TUMS FOR PATIENT. GAVE PHENERGAN AND REGLAN FOR NAUSEA TONIGHT AND FENTANYL FOR PAIN PER EMAR. THIS WAS MUCH BETTER AND PAITIENT SEEMS IMPROVED TODAY
[2018-08-25 09:28] LABS: Anion Gap 8 mmol/L (6-16); Blood Urea Nitrogen 4 mg/dL (8-24); Bun/Creatinine Ratio 8.8 (12.0-20.0); CO2, Blood 28 mmol/L (21-32); Calcium, Blood 8.8 mg/dL (8.5-10.1); Chloride, Blood 103 mmol/L (98-108); Creatinine, Blood 0.46 mg/dL (0.40-1.00); Glomerular Filtration Rate >60 (60-); Glucose, Blood 160 mg/dL (70-99); Magnesium, Blood 1.7 mg/dL (1.6-2.4); Potassium, Blood 2.9 mmol/L (3.5-5.5); Sodium, Blood 139 mmol/L (136-145)
--- NOTE | 2018-08-25 14:07 | NUR ---
PT TOLERATING PO INTAKE PT TOLERATING PO INTAKE. MAG INFUSION COMPLETE. PO K GIVEN. PT STATES SHE FEELS WELL & REQUESTING TO LEAVE IF ABLE. DR. SALES NOTIFIED. STATED SHE WOULD DC PT. AWAITING ORDERS. PT IN SHOWER AT THIS TIME.
[2018-08-25] MEDS ORDERED: PANT20 PO (15:57)
[2018-08-25] MEDS ORDERED: INSULANPEN SC (15:58)
--- NOTE | 2018-08-25 16:12 | NUR ---
PT DISCHARGED PT DISCHARGED IN STABLE CONDITION WITH VSS. PT EDUCATED ON DC INSTRUCTIONS & DENIED FURTHER QUESTIONS. MEDS FAXED TO [facility]. IV REMOVED & INTACT. PT WHEELED OUT BY MACHINE ASSEMBLER SUPERVISOR. TO BE DRIVEN HOME BY BOYFRIEND.
== END 2018-08-25 16:10 | disposition home or self-care (01) | DRG 74 ==
LOC: ER 22:08 → ERHOLD 22:09 → ER 22:09 → MEDS 08-22 12:14 → ERHOLD 08-22 12:14 → MEDS 08-23 12:33 → ERHOLD 08-23 12:33 → MEDS 08-23 12:39
PROVIDERS: Emergency Medicine; Internal Medicine; ADMIT Internal Medicine
DX: E11.43 Type 2 diabetes mellitus with diabetic autonomic (poly)neuropathy (principal); Z68.43 Body mass index [BMI] 50.0-59.9, adult; K31.84 Gastroparesis; Z79.4 Long term (current) use of insulin; Z91.14 Patient's other noncompliance with medication regimen; E87.6 Hypokalemia; E66.01 Morbid (severe) obesity due to excess calories; E03.9 Hypothyroidism, unspecified; E11.65 Type 2 diabetes mellitus with hyperglycemia; F32.9 Major depressive disorder, single episode, unspecified
CPT/HCPCS: 36415; 71046; 80048; 80053; 81001; 81025; 82010; 82947; 83036; 83690; 83735; 84145; 84439; 84443; 85025; 85027; 87086; 96361; 96374; 96375; 96376; 99284-25; A9270; C9113; G0378; J0780; J1630; J1650; J2405; J2550; J2765; J3010; J3475; J3480; J7030; J7120

== ENCOUNTER 2019-03-08 16:10 | Emergency (ER) | payer OTHER ==
[~2019-03-08] VITALS: Ht 172.7 cm; Wt 163.3 kg
[~2019-03-08 16:10] MED LIST changes: +DULO60; +DULO60 PO
[2019-03-08 16:57] LABS: BASOPHILS ABSOLUTE AUTO 0.02 K/mm3 (0.00-0.23); BASOPHILS PERCENT AUTO 0 % (0-2); EOSINOPHILS PERCENT AUTO 1 % (0-6); Hematocrit 41.3 % (33.0-51.0); Hemoglobin 14.1 g/dL (11.5-16.0); IMMATURE GRAN ABSOLUTE AUTO 0.02 K/mm3 (0.00-0.10); IMMATURE GRAN PERCENT AUTO 0 % (0-1); LYMPHOCYTES ABSOLUTE AUTO 1.75 K/mm3 (0.84-5.20); LYMPHOCYTES PERCENT AUTO 20 % (21-46); MONOCYTES ABSOLUTE AUTO 0.49 K/mm3 (0.16-1.47); MONOCYTES PERCENT AUTO 6 % (4-13); Mean Corpuscular HGB 30.5 pg (26.0-34.0); Mean Corpuscular HGB Conc 34.1 g/dL (31.5-36.5); Mean Corpuscular Volume 89 fL (80-100); Mean Platelet Volume 10.2 fL (9.1-12.4); NEUTROPHILS ABSOLUTE AUTO 6.19 K/mm3 (1.96-9.15); NEUTROPHILS PERCENT AUTO 72 % (41-73); Platelet Count 234 K/mm3 (150-400); RDW Coefficient Variation 12.1 % (11.7-14.2); RDW Standard Deviation 39.8 fL (35.1-46.3); Red Blood Cell Count 4.62 M/mm3 (3.80-5.20); White Blood Cell Count 8.57 K/mm3 (4.00-11.30)
[2019-03-08 16:57] LABS: Base Excess Venous -2.5 mmol/L; Bicarbonate Venous 23.8 mmol/L (24.0-30.0); PCO2 Venous 25.2 mmHg (38-42); PO2 Venous 124 mmHg (38-42); pH Blood Venous 7.52 (7.34-7.37)
[2019-03-08 17:21] LABS: Alanine Aminotransfer (ALT/SGP 32 U/L (12-78); Albumin, Blood 3.7 g/dL (3.4-5.0); Albumin/Globulin Ratio 0.8 (0.8-1.8); Alk Phos 84 U/L (50-136); Anion Gap 13 mmol/L (6-16); Aspartate Aminotrans (AST/SGOT 18 U/L (12-37); Bilirubin, Total 1.5 mg/dL (0.1-1.0); Blood Urea Nitrogen 19 mg/dL (8-24); Bun/Creatinine Ratio 44.6 (12.0-20.0); CO2, Blood 19 mmol/L (21-32); Calcium, Blood 9.8 mg/dL (8.5-10.1); Chloride, Blood 102 mmol/L (98-108); Creatinine, Blood 0.43 mg/dL (0.40-1.00); Globulin, Blood 4.4 g/dL (2.2-4.0); Glomerular Filtration Rate >60 (60-); Glucose, Blood 359 mg/dL (70-99); Potassium, Blood 4.2 mmol/L (3.5-5.5); Sodium, Blood 134 mmol/L (136-145); Total Protein, Blood 8.1 g/dL (6.4-8.2)
[2019-03-08 19:22] LABS: Source, Urine Clean Catch
[2019-03-08 19:27] LABS: Appearance, Urine Clear (Clear); Bilirubin, Urine Neg (Neg); Blood, Urine 1+ (Neg); Color, Urine Yellow (P-Yellow); Glucose Qualitative, Urine 4+ (Neg); Ketones, Urine 4+ (Neg); Leukocyte Esterase, Urine Neg (Neg); Nitrite, Urine Neg (Neg); Protein, Urine Neg (Neg); Urobilinogen, Urine NORM (Normal)
[2019-03-08 19:33] LABS: Bacteria Few /hpf; Red Blood Cells, Urine 0-2 /hpf (0-2); Squamous Epithelial Cells Few /hpf (Few); White Blood Cells, Urine 0-2 /hpf (0-5); Yeast/Fungi Urine Rare /hpf
== END 2019-03-08 21:46 | disposition home or self-care (01) ==
LOC: ER 16:10
PROVIDERS: Physician Assistant
DX: E11.43 Type 2 diabetes mellitus with diabetic autonomic (poly)neuropathy (principal); K31.84 Gastroparesis; Z91.018 Allergy to other foods; Z91.048 Other nonmedicinal substance allergy status; Z79.899 Other long term (current) drug therapy; Z79.4 Long term (current) use of insulin; Z87.891 Personal history of nicotine dependence
CPT/HCPCS: 36415; 80053; 81001; 82803; 82947; 83690; 85025; 96361; 96374; 96375; 96376; 99284-25; J0780; J1200; J2270; J2405; J2765; J7120

== ENCOUNTER 2019-03-10 06:17 | Emergency (ER) | payer OTHER ==
[~2019-03-10] VITALS: Ht 172.7 cm; Wt 163.3 kg
[2019-03-10 07:53] LABS: BASOPHILS ABSOLUTE AUTO 0.04 K/mm3 (0.00-0.23); BASOPHILS PERCENT AUTO 0 % (0-2); EOSINOPHILS PERCENT AUTO 0 % (0-6); Hematocrit 41.8 % (33.0-51.0); Hemoglobin 14.5 g/dL (11.5-16.0); IMMATURE GRAN PERCENT AUTO 1 % (0-1); LYMPHOCYTES ABSOLUTE AUTO 1.52 K/mm3 (0.84-5.20); LYMPHOCYTES PERCENT AUTO 7 % (21-46); MONOCYTES ABSOLUTE AUTO 1.67 K/mm3 (0.16-1.47); MONOCYTES PERCENT AUTO 8 % (4-13); Mean Corpuscular HGB 30.1 pg (26.0-34.0); Mean Corpuscular HGB Conc 34.7 g/dL (31.5-36.5); Mean Corpuscular Volume 87 fL (80-100); Mean Platelet Volume 9.6 fL (9.1-12.4); NEUTROPHILS ABSOLUTE AUTO 18.38 K/mm3 (1.96-9.15); NEUTROPHILS PERCENT AUTO 85 % (41-73); Platelet Count 307 K/mm3 (150-400); RDW Coefficient Variation 12.1 % (11.7-14.2); RDW Standard Deviation 38.8 fL (35.1-46.3); Red Blood Cell Count 4.82 M/mm3 (3.80-5.20); White Blood Cell Count 21.71 K/mm3 (4.00-11.30)
[2019-03-10 08:16] LABS: Alanine Aminotransfer (ALT/SGP 33 U/L (12-78); Albumin, Blood 3.7 g/dL (3.4-5.0); Albumin/Globulin Ratio 0.8 (0.8-1.8); Alk Phos 87 U/L (50-136); Anion Gap 12 mmol/L (6-16); Aspartate Aminotrans (AST/SGOT 9 U/L (12-37); Bilirubin, Total 1.1 mg/dL (0.1-1.0); Blood Urea Nitrogen 16 mg/dL (8-24); Bun/Creatinine Ratio 41.1 (12.0-20.0); CO2, Blood 23 mmol/L (21-32); Calcium, Blood 10.4 mg/dL (8.5-10.1); Chloride, Blood 106 mmol/L (98-108); Creatinine, Blood 0.39 mg/dL (0.40-1.00); Globulin, Blood 4.6 g/dL (2.2-4.0); Glomerular Filtration Rate >60 (60-); Glucose, Blood 203 mg/dL (70-99); Potassium, Blood 3.1 mmol/L (3.5-5.5); Sodium, Blood 141 mmol/L (136-145); Total Protein, Blood 8.3 g/dL (6.4-8.2)
[2019-03-10 08:58] LABS: Source, Urine Clean Catch
[2019-03-10 09:08] LABS: Bilirubin, Urine Neg (Neg); Blood, Urine 2+ (Neg); Glucose Qualitative, Urine 4+ (Neg); Ketones, Urine 4+ (Neg); Leukocyte Esterase, Urine Neg (Neg); Nitrite, Urine Neg (Neg); Protein, Urine 2+ (Neg); Specific Gravity, Urine 1.015 (1.003-1.022); Urobilinogen, Urine NORM (Normal)
[2019-03-10 09:50] LABS: Appearance, Urine Hazy (Clear); Color, Urine Yellow (P-Yellow)
[2019-03-10 09:51] LABS: Bacteria Few /hpf; Red Blood Cells, Urine 0-2 /hpf (0-2); Squamous Epithelial Cells Many /hpf (Few); White Blood Cells, Urine Not Seen /hpf (0-5)
[2019-03-10] MEDS ORDERED: ONDA4ODT MM (10:12)
== END 2019-03-10 10:30 | disposition home or self-care (01) ==
LOC: ER 06:17
PROVIDERS: Emergency Medicine
DX: R10.9 Unspecified abdominal pain (principal); E11.65 Type 2 diabetes mellitus with hyperglycemia; E87.6 Hypokalemia; R11.2 Nausea with vomiting, unspecified; E03.9 Hypothyroidism, unspecified; Z87.891 Personal history of nicotine dependence
CPT/HCPCS: 71045; 74177; 80053; 81001; 81025; 82947; 83690; 83735; 85025; 86850; 86900; 86901; 96361; 96374-59; 99284-25; J2405; J7030; Q9967

== ENCOUNTER 2019-03-13 09:19 | Emergency (ER) | payer OTHER ==
[~2019-03-13] VITALS: Ht 172.7 cm; Wt 163.3 kg
[2019-03-13] MEDS ORDERED: Amoxicilli250 MG/5 M PO (11:51)
[2019-03-13] MEDS ORDERED: Tylenol W/Code120 ML PO (11:51)
[2019-03-13] MEDS ORDERED: Motrin100 MG/5 M PO (11:51)
== END 2019-03-13 12:10 | disposition home or self-care (01) ==
LOC: ER 09:19
DX: Z91.018 Allergy to other foods (principal); E11.9 Type 2 diabetes mellitus without complications; E03.9 Hypothyroidism, unspecified; Z87.891 Personal history of nicotine dependence
CPT/HCPCS: 70360; 99283-25; J1100

== ENCOUNTER 2019-05-30 21:11 | Emergency (ER) | payer OTHER ==
[~2019-05-30] VITALS: Ht 172.7 cm; Wt 151.9 kg
[~2019-05-30 21:11] MED LIST changes: +Amoxicilli250 MG/5 M PO; +Motrin100 MG/5 M PO; +Tylenol W/Code120 ML PO
[2019-05-30 21:44] LABS: BASOPHILS ABSOLUTE AUTO 0.02 K/mm3 (0.00-0.23); BASOPHILS PERCENT AUTO 0 % (0-2); EOSINOPHILS PERCENT AUTO 0 % (0-6); Hematocrit 47.7 % (33.0-51.0); Hemoglobin 16.1 g/dL (11.5-16.0); IMMATURE GRAN ABSOLUTE AUTO 0.02 K/mm3 (0.00-0.10); IMMATURE GRAN PERCENT AUTO 0 % (0-1); LYMPHOCYTES ABSOLUTE AUTO 2.17 K/mm3 (0.84-5.20); LYMPHOCYTES PERCENT AUTO 20 % (21-46); MONOCYTES ABSOLUTE AUTO 0.85 K/mm3 (0.16-1.47); MONOCYTES PERCENT AUTO 8 % (4-13); Mean Corpuscular HGB 29.9 pg (26.0-34.0); Mean Corpuscular HGB Conc 33.8 g/dL (31.5-36.5); Mean Corpuscular Volume 89 fL (80-100); Mean Platelet Volume 9.8 fL (9.1-12.4); NEUTROPHILS ABSOLUTE AUTO 8.09 K/mm3 (1.96-9.15); NEUTROPHILS PERCENT AUTO 73 % (41-73); Platelet Count 288 K/mm3 (150-400); RDW Coefficient Variation 12.7 % (11.7-14.2); RDW Standard Deviation 41.8 fL (35.1-46.3); Red Blood Cell Count 5.38 M/mm3 (3.80-5.20); White Blood Cell Count 11.15 K/mm3 (4.00-11.30)
[2019-05-30 22:02] LABS: Alanine Aminotransfer (ALT/SGP 32 U/L (12-78); Albumin, Blood 3.7 g/dL (3.4-5.0); Albumin/Globulin Ratio 0.8 (0.8-1.8); Alk Phos 96 U/L (50-136); Anion Gap 9 mmol/L (6-16); Aspartate Aminotrans (AST/SGOT 21 U/L (12-37); Bilirubin, Total 1.5 mg/dL (0.1-1.0); Blood Urea Nitrogen 23 mg/dL (8-24); Bun/Creatinine Ratio 46.1 (12.0-20.0); CO2, Blood 32 mmol/L (21-32); Calcium, Blood 10.3 mg/dL (8.5-10.1); Chloride, Blood 95 mmol/L (98-108); Globulin, Blood 4.6 g/dL (2.2-4.0); Glomerular Filtration Rate >60 (60-); Glucose, Blood 312 mg/dL (70-99); Potassium, Blood 3.5 mmol/L (3.5-5.5); Sodium, Blood 136 mmol/L (136-145); Total Protein, Blood 8.3 g/dL (6.4-8.2)
== END 2019-05-31 00:26 | disposition home or self-care (01) ==
LOC: ER 21:11
PROVIDERS: Emergency Medicine
DX: E11.65 Type 2 diabetes mellitus with hyperglycemia (principal); E11.43 Type 2 diabetes mellitus with diabetic autonomic (poly)neuropathy; K31.84 Gastroparesis; E03.9 Hypothyroidism, unspecified; Z91.018 Allergy to other foods; Z79.899 Other long term (current) drug therapy; Z87.891 Personal history of nicotine dependence
CPT/HCPCS: 36415; 80053; 83690; 85025; 96361; 96374; 96375; 99284-25; C9113; J1200; J1630; J7030

== ENCOUNTER → 2019-06-02 | Outpatient (CLI) | payer OTHER | END | disposition home or self-care (01) | LOC: LAB 19:02 → LAB SHORT 19:02 | DX: E11.43 Type 2 diabetes mellitus with diabetic autonomic (poly)neuropathy (principal); J02.9 Acute pharyngitis, unspecified | CPT/HCPCS: 87081; 87086 ==

== ENCOUNTER 2019-12-27 22:22 | Emergency (ER) | payer OTHER ==
[~2019-12-27] VITALS: Ht 172.7 cm; Wt 172.4 kg
[2019-12-27 22:59] LABS: BASOPHILS ABSOLUTE AUTO 0.02 K/mm3 (0.00-0.23); BASOPHILS PERCENT AUTO 0 % (0-2); EOSINOPHILS ABSOLUTE AUTO 0.01 K/mm3 (0.00-0.68); EOSINOPHILS PERCENT AUTO 0 % (0-6); Hematocrit 45.2 % (33.0-51.0); Hemoglobin 15.3 g/dL (11.5-16.0); IMMATURE GRAN ABSOLUTE AUTO 0.07 K/mm3 (0.00-0.10); IMMATURE GRAN PERCENT AUTO 1 % (0-1); LYMPHOCYTES ABSOLUTE AUTO 0.86 K/mm3 (0.84-5.20); LYMPHOCYTES PERCENT AUTO 6 % (21-46); MONOCYTES ABSOLUTE AUTO 0.25 K/mm3 (0.16-1.47); MONOCYTES PERCENT AUTO 2 % (4-13); Mean Corpuscular HGB 30.1 pg (26.0-34.0); Mean Corpuscular HGB Conc 33.8 g/dL (31.5-36.5); Mean Corpuscular Volume 89 fL (80-100); Mean Platelet Volume 10.1 fL (9.1-12.4); NEUTROPHILS ABSOLUTE AUTO 13.03 K/mm3 (1.96-9.15); NEUTROPHILS PERCENT AUTO 92 % (41-73); Platelet Count 225 K/mm3 (150-400); RDW Coefficient Variation 13.3 % (11.7-14.2); RDW Standard Deviation 43.5 fL (35.1-46.3); Red Blood Cell Count 5.08 M/mm3 (3.80-5.20); White Blood Cell Count 14.24 K/mm3 (4.00-11.30)
[2019-12-27] MEDS ORDERED: LEVEMIR FL100 UNIT/2 (23:03)
[2019-12-27 23:12] LABS: Alanine Aminotransfer (ALT/SGP 38 U/L (12-78); Albumin, Blood 3.8 g/dL (3.4-5.0); Albumin/Globulin Ratio 0.8 (0.8-1.8); Alk Phos 103 U/L (50-136); Anion Gap 13 mmol/L (6-16); Aspartate Aminotrans (AST/SGOT 26 U/L (12-37); Bilirubin, Total 1.3 mg/dL (0.1-1.0); Blood Urea Nitrogen 18 mg/dL (8-24); Bun/Creatinine Ratio 47.1 (12.0-20.0); CO2, Blood 22 mmol/L (21-32); Calcium, Blood 9.5 mg/dL (8.5-10.1); Chloride, Blood 103 mmol/L (98-108); Creatinine, Blood 0.38 mg/dL (0.40-1.00); Globulin, Blood 4.5 g/dL (2.2-4.0); Glomerular Filtration Rate >60 (60-); Glucose, Blood 436 mg/dL (70-99); Potassium, Blood 4.5 mmol/L (3.5-5.5); Sodium, Blood 138 mmol/L (136-145); Total Protein, Blood 8.3 g/dL (6.4-8.2)
[2019-12-27 23:17] LABS: Source, Urine Clean Catch
[2019-12-27 23:21] LABS: Appearance, Urine Clear (Clear); Bilirubin, Urine Neg (Neg); Blood, Urine 1+ (Neg); Color, Urine Yellow (P-Yellow); Glucose Qualitative, Urine 4+ (Neg); Ketones, Urine 4+ (Neg); Leukocyte Esterase, Urine Neg (Neg); Nitrite, Urine Neg (Neg); Protein, Urine Neg (Neg); Specific Gravity, Urine 1.015 (1.003-1.022); Urobilinogen, Urine NORM (Normal)
[2019-12-27 23:32] LABS: Red Blood Cells, Urine 0-2 /hpf (0-2); White Blood Cells, Urine 50-100 /hpf (0-5)
[2019-12-27 23:33] LABS: Bacteria Mod /hpf; Squamous Epithelial Cells Mod /hpf (Few)
[2019-12-28] MEDS ORDERED: ONDA4ODT MM (01:12)
== END 2019-12-28 01:51 | disposition home or self-care (01) ==
LOC: ER 22:22
PROVIDERS: Student in an Organized Health Care Education/Training Program
DX: E11.65 Type 2 diabetes mellitus with hyperglycemia (principal); E11.43 Type 2 diabetes mellitus with diabetic autonomic (poly)neuropathy; K31.84 Gastroparesis; E03.9 Hypothyroidism, unspecified; F17.210 Nicotine dependence, cigarettes, uncomplicated; Z91.14 Patient's other noncompliance with medication regimen; Z91.018 Allergy to other foods; Z91.09 Other allergy status, other than to drugs and biological substances; Z79.4 Long term (current) use of insulin
CPT/HCPCS: 36415; 80053; 81001; 82947; 83690; 85025; 87077; 87086; 87186; 96361; 96374; 96375; 99284-25; J1630; J2405; J7120

== ENCOUNTER 2020-02-04 15:11 | Emergency (ER) | payer SELFPAY ==
[~2020-02-04] VITALS: Ht 172.7 cm; Wt 172.4 kg
[~2020-02-04 15:11] MED LIST changes: +LEVEMIR FL100 UNIT/2
[2020-02-04 15:46] LABS: BASOPHILS ABSOLUTE AUTO 0.03 K/mm3 (0.00-0.23); BASOPHILS PERCENT AUTO 0 % (0-2); EOSINOPHILS PERCENT AUTO 0 % (0-6); Hematocrit 45.7 % (33.0-51.0); Hemoglobin 15.6 g/dL (11.5-16.0); IMMATURE GRAN ABSOLUTE AUTO 0.05 K/mm3 (0.00-0.10); IMMATURE GRAN PERCENT AUTO 0 % (0-1); LYMPHOCYTES ABSOLUTE AUTO 1.85 K/mm3 (0.84-5.20); LYMPHOCYTES PERCENT AUTO 13 % (21-46); MONOCYTES ABSOLUTE AUTO 0.66 K/mm3 (0.16-1.47); MONOCYTES PERCENT AUTO 5 % (4-13); Mean Corpuscular HGB 30.5 pg (26.0-34.0); Mean Corpuscular HGB Conc 34.1 g/dL (31.5-36.5); Mean Corpuscular Volume 89 fL (80-100); Mean Platelet Volume 9.9 fL (9.1-12.4); NEUTROPHILS ABSOLUTE AUTO 12.11 K/mm3 (1.96-9.15); NEUTROPHILS PERCENT AUTO 82 % (41-73); Platelet Count 277 K/mm3 (150-400); RDW Coefficient Variation 12.8 % (11.7-14.2); RDW Standard Deviation 42.4 fL (35.1-46.3); Red Blood Cell Count 5.11 M/mm3 (3.80-5.20)
[2020-02-04 16:22] LABS: Alanine Aminotransfer (ALT/SGP 28 U/L (12-78); Albumin, Blood 4.1 g/dL (3.4-5.0); Alk Phos 107 U/L (50-136); Anion Gap 14 mmol/L (6-16); Aspartate Aminotrans (AST/SGOT 18 U/L (12-37); Bilirubin, Total 2.5 mg/dL (0.1-1.0); Blood Urea Nitrogen 16 mg/dL (8-24); Bun/Creatinine Ratio 37.3 (12.0-20.0); CO2, Blood 25 mmol/L (21-32); Calcium, Blood 9.9 mg/dL (8.5-10.1); Chloride, Blood 92 mmol/L (98-108); Creatinine, Blood 0.43 mg/dL (0.40-1.00); Globulin, Blood 4.2 g/dL (2.2-4.0); Glomerular Filtration Rate >60 (60-); Glucose, Blood 337 mg/dL (70-99); Potassium, Blood 3.6 mmol/L (3.5-5.5); Sodium, Blood 131 mmol/L (136-145); Total Protein, Blood 8.3 g/dL (6.4-8.2)
[2020-02-04] MEDS ORDERED: COMPAZINE10 MG PO (16:35)
== END 2020-02-04 18:15 | disposition home or self-care (01) ==
LOC: ER 15:11
PROVIDERS: Emergency Medicine
DX: E11.43 Type 2 diabetes mellitus with diabetic autonomic (poly)neuropathy (principal); K31.84 Gastroparesis; F31.9 Bipolar disorder, unspecified; E66.01 Morbid (severe) obesity due to excess calories; F17.210 Nicotine dependence, cigarettes, uncomplicated
CPT/HCPCS: 36415; 80053; 83690; 85025; 96361; 96374; 96375; 99284-25; J1200; J1630; J7120

== ENCOUNTER 2020-03-21 19:54 | Emergency (ER) | payer SELFPAY ==
[~2020-03-21] VITALS: Ht 172.7 cm; Wt 163.3 kg
[~2020-03-21 19:54] MED LIST changes: +COMPAZINE10 MG PO
[2020-03-21] MEDS ORDERED: VIGAMOX3 ML TOP (22:48)
[2020-03-21] MEDS ORDERED: KETOROLAC TROMET5 ML TOP (22:48)
[2020-03-29] MEDS ORDERED: SULTRIDS PO (12:48)
[2020-03-29] MEDS ORDERED: CEPH500 PO (12:48)
== END 2020-03-21 23:16 | disposition home or self-care (01) ==
LOC: ER 19:54
DX: H57.12 Ocular pain, left eye (principal); E11.43 Type 2 diabetes mellitus with diabetic autonomic (poly)neuropathy; K31.84 Gastroparesis; F17.210 Nicotine dependence, cigarettes, uncomplicated; Z79.4 Long term (current) use of insulin; Z91.018 Allergy to other foods; Z91.09 Other allergy status, other than to drugs and biological substances
CPT/HCPCS: 99282; A9270

== ENCOUNTER 2020-04-24 18:37 | Emergency (ER) | payer OTHER ==
[~2020-04-24] VITALS: Ht 172.7 cm; Wt 158.8 kg
[~2020-04-24 18:37] MED LIST changes: +KETOROLAC TROMET5 ML TOP; +VIGAMOX3 ML TOP
[2020-04-24] MEDS ORDERED: CEPH500 PO (19:25)
[2020-04-24] MEDS ORDERED: Zofran4 MG PO (19:25)
[2020-04-24] MEDS ORDERED: Triamcinolone A15 G3 TOP ×2 (19:25→19:27)
[2020-04-24] MEDS ORDERED: Bactrim Ds Tab1 EACH PO (19:25)
== END 2020-04-24 19:33 | disposition home or self-care (01) ==
LOC: ER 18:37
DX: E11.65 Type 2 diabetes mellitus with hyperglycemia (principal); E11.43 Type 2 diabetes mellitus with diabetic autonomic (poly)neuropathy; K31.84 Gastroparesis; L50.9 Urticaria, unspecified; Z88.5 Allergy status to narcotic agent; Z91.09 Other allergy status, other than to drugs and biological substances; Z91.018 Allergy to other foods; Z87.891 Personal history of nicotine dependence
CPT/HCPCS: 99282; A9270

== ENCOUNTER 2020-04-24 22:41 | Inpatient (IN) | payer OTHER ==
[~2020-04-24] VITALS: Ht 172.7 cm; Wt 161.0 kg
[~2020-04-24 22:41] MED LIST changes: +Bactrim Ds Tab1 EACH PO; +Triamcinolone A15 G3 TOP; +Zofran4 MG PO
[2020-04-25 00:37] LABS: BASOPHILS ABSOLUTE AUTO 0.05 K/mm3 (0.00-0.23); BASOPHILS PERCENT AUTO 0 % (0-2); EOSINOPHILS PERCENT AUTO 0 % (0-6); Hematocrit 42.7 % (33.0-51.0); IMMATURE GRAN ABSOLUTE AUTO 0.15 K/mm3 (0.00-0.10); IMMATURE GRAN PERCENT AUTO 1 % (0-1); LYMPHOCYTES ABSOLUTE AUTO 1.97 K/mm3 (0.84-5.20); LYMPHOCYTES PERCENT AUTO 8 % (21-46); MONOCYTES ABSOLUTE AUTO 1.56 K/mm3 (0.16-1.47); MONOCYTES PERCENT AUTO 6 % (4-13); Mean Corpuscular HGB 31.6 pg (26.0-34.0); Mean Corpuscular HGB Conc 35.1 g/dL (31.5-36.5); Mean Corpuscular Volume 90 fL (80-100); Mean Platelet Volume 10.5 fL (9.1-12.4); NEUTROPHILS ABSOLUTE AUTO 20.53 K/mm3 (1.96-9.15); NEUTROPHILS PERCENT AUTO 85 % (41-73); Platelet Count 312 K/mm3 (150-400); RDW Coefficient Variation 14.1 % (11.7-14.2); RDW Standard Deviation 46.5 fL (35.1-46.3); Red Blood Cell Count 4.74 M/mm3 (3.80-5.20); White Blood Cell Count 24.26 K/mm3 (4.00-11.30)
[2020-04-25 00:49] LABS: Alanine Aminotransfer (ALT/SGP 44 U/L (12-78); Albumin, Blood 3.5 g/dL (3.4-5.0); Alk Phos 81 U/L (50-136); Anion Gap 22 mmol/L (6-16); Aspartate Aminotrans (AST/SGOT 24 U/L (12-37); Bilirubin, Total 2.5 mg/dL (0.1-1.0); Blood Urea Nitrogen 11 mg/dL (8-24); Bun/Creatinine Ratio 21.2 (12.0-20.0); CO2, Blood 16 mmol/L (21-32); Calcium, Blood 9.2 mg/dL (8.5-10.1); Chloride, Blood 94 mmol/L (98-108); Creatinine, Blood 0.52 mg/dL (0.40-1.00); Globulin, Blood 3.6 g/dL (2.2-4.0); Glomerular Filtration Rate >60 (60-); Glucose, Blood 395 mg/dL (70-99); Potassium, Blood 3.5 mmol/L (3.5-5.5); Sodium, Blood 132 mmol/L (136-145); Total Protein, Blood 7.1 g/dL (6.4-8.2)
--- NOTE | 2020-04-25 00:50 | NUR ---
7.5 ETT, 24 CM AT TEETH
--- NOTE | 2020-04-25 03:25 | NUR ---
REPORT RECEIVED FROM SENIOR PARTNER PATRICIO.PT ARRIVED IN ICU 0150 VIA BED ON VENT, IV DRIPS:PROPOFOL @ 60 MCG/KG/MIN, VERSED @ 10 MG/HR. VENT: A/C 14, TV 450, PEEP 5, FIO2 30%. ET-TUBE 7.5 24 AT TEETH. @ 0330 RT CHANGED ET-TUBE TO 22 AT TEETH & DECREASED FIO2 TO 25%.
--- NOTE | 2020-04-25 03:33 | NUR ---
WITHDREW ETT TO 22 CM AT TEETH, PER ORDER
[2020-04-25 04:18] LABS: Source, Urine Catheter
[2020-04-25 04:23] LABS: Bilirubin, Urine Neg (Neg); Blood, Urine Neg (Neg); Glucose Qualitative, Urine 4+ (Neg); Ketones, Urine 4+ (Neg); Leukocyte Esterase, Urine Neg (Neg); Nitrite, Urine Neg (Neg); Protein, Urine 1+ (Neg); Specific Gravity, Urine 1.025 (1.003-1.022); Urobilinogen, Urine NORM (Normal)
[2020-04-25 04:23] LABS: BASOPHILS ABSOLUTE AUTO 0.03 K/mm3 (0.00-0.23); BASOPHILS PERCENT AUTO 0 % (0-2); EOSINOPHILS PERCENT AUTO 0 % (0-6); Hematocrit 39.6 % (33.0-51.0); Hemoglobin 13.7 g/dL (11.5-16.0); IMMATURE GRAN ABSOLUTE AUTO 0.09 K/mm3 (0.00-0.10); IMMATURE GRAN PERCENT AUTO 1 % (0-1); LYMPHOCYTES ABSOLUTE AUTO 0.47 K/mm3 (0.84-5.20); LYMPHOCYTES PERCENT AUTO 3 % (21-46); MONOCYTES ABSOLUTE AUTO 0.55 K/mm3 (0.16-1.47); MONOCYTES PERCENT AUTO 3 % (4-13); Mean Corpuscular HGB 31.7 pg (26.0-34.0); Mean Corpuscular HGB Conc 34.6 g/dL (31.5-36.5); Mean Corpuscular Volume 92 fL (80-100); NEUTROPHILS ABSOLUTE AUTO 15.51 K/mm3 (1.96-9.15); NEUTROPHILS PERCENT AUTO 93 % (41-73); Platelet Count 223 K/mm3 (150-400); RDW Coefficient Variation 13.9 % (11.7-14.2); RDW Standard Deviation 46.9 fL (35.1-46.3); Red Blood Cell Count 4.32 M/mm3 (3.80-5.20); White Blood Cell Count 16.65 K/mm3 (4.00-11.30)
[2020-04-25 04:29] LABS: Appearance, Urine Clear (Clear); Color, Urine Yellow (P-Yellow)
[2020-04-25 04:37] LABS: U Amphetamine Screen Not Detected; U Barbituate Screen Not Detected; U Benzodiazapine Screen Not Detected; U Buprenorphine Screen Not Detected; U Cannabinoids Screen DETECTED; U Cocaine Screen Not Detected; U Methadone Screen Not Detected; U Methamphetamine Screen Not Detected; U Opiates Screen Not Detected; U Oxycodone Screen Not Detected; U Phencyclidine Screen Not Detected; U Propoxyphene Screen Not Detected
[2020-04-25 04:41] LABS: Alanine Aminotransfer (ALT/SGP 42 U/L (12-78); Albumin, Blood 3.1 g/dL (3.4-5.0); Albumin/Globulin Ratio 0.9 (0.8-1.8); Alk Phos 76 U/L (50-136); Anion Gap 23 mmol/L (6-16); Aspartate Aminotrans (AST/SGOT 13 U/L (12-37); Bilirubin, Total 1.9 mg/dL (0.1-1.0); Blood Urea Nitrogen 12 mg/dL (8-24); Bun/Creatinine Ratio 20.7 (12.0-20.0); CO2, Blood 17 mmol/L (21-32); Calcium, Blood 8.5 mg/dL (8.5-10.1); Chloride, Blood 95 mmol/L (98-108); Creatinine, Blood 0.58 mg/dL (0.40-1.00); Globulin, Blood 3.6 g/dL (2.2-4.0); Glomerular Filtration Rate >60 (60-); Glucose, Blood 464 mg/dL (70-99); Potassium, Blood 3.5 mmol/L (3.5-5.5); Sodium, Blood 135 mmol/L (136-145); Total Protein, Blood 6.7 g/dL (6.4-8.2)
--- NOTE | 2020-04-25 06:24 | NUR ---
SHIFT SUMMARY PT REMIANS INTUBATED AND ON VENT WITH PROPOFOL AND VERSED FOR SEDATION. INSULIN GTT INFUSING, TITRATING TO cbg'S PER md ORDER. VITALS ARE STABLE AT THIS TIME.
[2020-04-25 10:25] LABS: Anion Gap 11 mmol/L (6-16); Blood Urea Nitrogen 10 mg/dL (8-24); Bun/Creatinine Ratio 18.5 (12.0-20.0); CO2, Blood 26 mmol/L (21-32); Calcium, Blood 8.7 mg/dL (8.5-10.1); Chloride, Blood 100 mmol/L (98-108); Creatinine, Blood 0.54 mg/dL (0.40-1.00); Glomerular Filtration Rate >60 (60-); Glucose, Blood 308 mg/dL (70-99); Potassium, Blood 3.4 mmol/L (3.5-5.5); Sodium, Blood 137 mmol/L (136-145)
[2020-04-25 14:33] LABS: Anion Gap 6 mmol/L (6-16); Blood Urea Nitrogen 12 mg/dL (8-24); Bun/Creatinine Ratio 23.3 (12.0-20.0); CO2, Blood 27 mmol/L (21-32); Calcium, Blood 8.9 mg/dL (8.5-10.1); Chloride, Blood 103 mmol/L (98-108); Creatinine, Blood 0.52 mg/dL (0.40-1.00); Glomerular Filtration Rate >60 (60-); Glucose, Blood 273 mg/dL (70-99); Potassium, Blood 3.5 mmol/L (3.5-5.5); Sodium, Blood 136 mmol/L (136-145)
--- NOTE | 2020-04-25 19:04 | NUR ---
SHIFT SUMMARY SEDATION VACATION THIS MORNING-PT WOULD NOT FOLLOW COMMAND AND BECAME AGGITATED AND WILD IN THE BED. SEDATION TURNED BACK ON. INSULIN DRIP CONTINUED ALL DAY UNTIL SEMGLEE GIVEN AND SLIDING SCALE STARTED. 1730 INSULIN DRIP D/C'D, DR. ALMENDAREZ WANTS BLOOD SUGAR CHECKS EVERY 3 HOURS. PROPOFOL TAKEN OFF AT 1730, AND AT 1845 PATIENT IS WIDE AWAKE, CALM, FOLLOWING COMMANDS AND WRITING QUESTIONS ON A PAD OF PAPER. DR. ALMENDAREZ INFORMED AND PROPOFOL RESTARTED. PLAN TO EXTUBATE IN THE MORNING. PRECEDEX CAN BE TITRATED TO 1.4, AND PROPOFOL TITRATED TO KEEP PT CALM AND COMFORTABLE. PT REPORTS HER FATHER RECENTLY DIES IN THIS ICU AND SHE IS VERY TEARFUL.
--- NOTE | 2020-04-25 19:47 | NUR ---
ASSUMED CARE BEDSIDE REPORT RECEIVED FROM KELSY MONACO. PT REMAINS INTUBATED ON VENT WITH SEDATION. iNSULIN GTT IS CURRENTLY OFF. WILL CONTINUE TO FOLLOW CBGS AND TREAT NEEDED.
--- NOTE | 2020-04-25 22:39 | NUR ---
NOTIFIED CBG 347. SLIDING SCALE ORDERS UPDATED.
--- NOTE | 2020-04-26 00:16 | NUR ---
REASSESSMENT PT WITH TEMP HIGHEST THIS SHIFT 100.4. BLANKETS REMOVED AND ROOM TEMP DECREASED. PT'S TEMP DECREASED TO 99. PT REMAINS ON VENT, SEDATED. NO CHANGES AT THIS TIME.
[2020-04-26 03:52] LABS: BASOPHILS ABSOLUTE AUTO 0.02 K/mm3 (0.00-0.23); BASOPHILS PERCENT AUTO 0 % (0-2); EOSINOPHILS PERCENT AUTO 0 % (0-6); Hematocrit 38.2 % (33.0-51.0); Hemoglobin 13.5 g/dL (11.5-16.0); IMMATURE GRAN ABSOLUTE AUTO 0.04 K/mm3 (0.00-0.10); IMMATURE GRAN PERCENT AUTO 0 % (0-1); LYMPHOCYTES ABSOLUTE AUTO 1.42 K/mm3 (0.84-5.20); LYMPHOCYTES PERCENT AUTO 12 % (21-46); MONOCYTES ABSOLUTE AUTO 0.97 K/mm3 (0.16-1.47); MONOCYTES PERCENT AUTO 8 % (4-13); Mean Corpuscular HGB 32.4 pg (26.0-34.0); Mean Corpuscular HGB Conc 35.3 g/dL (31.5-36.5); Mean Corpuscular Volume 92 fL (80-100); Mean Platelet Volume 10.2 fL (9.1-12.4); NEUTROPHILS ABSOLUTE AUTO 9.19 K/mm3 (1.96-9.15); NEUTROPHILS PERCENT AUTO 79 % (41-73); Platelet Count 197 K/mm3 (150-400); RDW Coefficient Variation 13.9 % (11.7-14.2); RDW Standard Deviation 46.8 fL (35.1-46.3); Red Blood Cell Count 4.17 M/mm3 (3.80-5.20); White Blood Cell Count 11.64 K/mm3 (4.00-11.30)
[2020-04-26 04:07] LABS: Anion Gap 9 mmol/L (6-16); Blood Urea Nitrogen 16 mg/dL (8-24); Bun/Creatinine Ratio 28.5 (12.0-20.0); CO2, Blood 25 mmol/L (21-32); Calcium, Blood 8.6 mg/dL (8.5-10.1); Chloride, Blood 106 mmol/L (98-108); Creatinine, Blood 0.56 mg/dL (0.40-1.00); Glomerular Filtration Rate >60 (60-); Glucose, Blood 311 mg/dL (70-99); Potassium, Blood 3.3 mmol/L (3.5-5.5); Sodium, Blood 140 mmol/L (136-145)
--- NOTE | 2020-04-26 06:28 | NUR ---
SHIFT SUMMARY PT REMAINS SEDATED ON VENT OVERNIGHT. HOLD SEDATION VACATION AND WEAN TRIAL TILL MD AT BEDSIDE THIS AM. POTASSIUM REPLACEMENT IN PROGRESS AT THIS TIME.
--- NOTE | 2020-04-26 09:05 | NUR ---
ASSUMED CARE / DR ALMENDAREZ: REPORT RECIEVED FROM JASON Chaudhary RN & PINKY Murphy RN. ASSUMED CARE OF THIS PT AT APPROX 0700. ON ASSESSMENT, THE PT IS INTUBATED W/ 7.5 ETT, NOTED TO BE 22.0 CM VANE. SHE WITHDRAWS ALL EXTREMITIES FROM PAINTUL STIMULUS BUT IS NOT OPENING EYES AT THIS TIME. LS DIM T/O, VENT SETTINGS: AC 14/450/5/30%, O2 SATS > 92%. MONITOR SHOWS SB-SR W/ HR 50-60s, BP STABLE. OGT IN PLACED, CLAMPED. TEMP CUELLO PATENT/ DRAINING DARK YELLOW URINE W/ COPIOUS AMNTS SEDIMENT. SMALL ULCERATIONS NOTED TO LEFT FOOT. 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 SMALL RAISED, RED AREA TO FOREHEAD. SKIN OTHERWISE INTACT. PROVIDER AT BEDSIDE THIS MORNING & REQUESTS THAT PROPOFOL BE TURNED OFF FOR POSSIBLE EXTUBATION LATER THIS AM. PROPOFOL PLACED ON STANDBY & PRECEDEX DECREASED TO 1.0 MCG/KG/HR PER PROVIDER REQUEST AT 0850. THE PT IS AWAKE & FOLLOWING DIRECTIONS, OVERALL CALM BUT DOES BECOME AGITATED AT TIMES. SHE IS TOLERATING SPONTANEOUS W/ PS 5, PEEP 5 & FIO2 30% WELL. THE PLAN IS FOR EXTUBATION IN APPROX 30-45 MINS ONCE PT MORE ALERT.
--- NOTE | 2020-04-26 10:03 | NUR ---
EXTUBATION: DR ALMENDAREZ HAS SEEN THE PT WHO IS AWAKE, FOLLOWING DIRECTION & NODDING HEAD TO ANSWER YES/NO QUESTIONS. HE STS OKAY FOR EXTUBATION AT THIS TIME. ROMIE Cevallos, RT, AT BEDSIDE W/ THIS RN. PT EXTUBATED AT 0950 TO RA W/ O2 SATS > 92%. SHE IS AWAKE & TALKING, REMINDED BY THIS RN THAT HER VOCAL CORDS/THROAT WILL BE SORE & THAT SHE SHOULD ALLOW HERSELF TO REST BY NOT SPEAKING TOO MUCH.
--- NOTE | 2020-04-26 12:30 | NUR ---
UPDATE: THE PT CONTINUES TO DO WELL SINCE EXTUBATION & HAS PASSED A BEDSIDE SWALLOW EVAL W/O ANY DIFFICULTY. DR ALMENDAREZ STS OKAY FOR PT TO HAVE ADA DIET ORDERED. CBG CHECKS & INSULIN ADMIN HAVE BOTH BEEN CHANGED TO AC&HS. PT NOW MEDICAL NO TELE STATUS.
--- NOTE | 2020-04-26 17:33 | NUR ---
ASSUMPTION OF CARE ASSUMED CARE OF PATIENT AT 1645. PATIENT HAS NO COMPLAINTS OF PAIN. PATIENT ALERT AND ORIENTED X 4. AT BEDSIDE VISITING. PATIENT SATTING 90% AND GREATER ON RA. HR IN THE 60S. SBP LOW 100S TO 130S. GI WNL. PATIENT GIVEN DINNER AND HAS GOOD APPETITE. NO BM TODAY. CUELLO DRAINING DARK YELLOW COLORED URINE WITH FOUL ODOR NOTED. PATIENT RECEIVING ANTIBIOTIC AT THIS TIME. BED LOW, CALL LIGHT IN REACH. WILL CONTINUE TO MONITOR PATIENT FREQUENTLY THROUGHOUT SHIFT.
--- NOTE | 2020-04-26 18:45 | NUR ---
SHIFT SUMMARY PATIENT EXTUBATED THIS AM. PATIENT ALERT AND ORIENTED X 4. PATIENT HAD TMAX TODAY OF 100.2 DEGREES FAHRENHEIT. PATIENT HAS NOT HAD ANY COMPLAINTS OF PAIN SINCE ASSUMPTION OF CARE. HR 50S TO 60S THIS SHIFT. SBP LOW 100S TO 140S. CUELLO DRAINED 575 MLS OF DARK YELLOW URINE. PATIENT COMFORTABLE IN BED AT THIS TIME. NO COMPLAINTS. BED LOW, CALL LIGHT IN REACH. WILL BE GIVING REPORT TO ONCOMING TECHNICAL ASSISTANCE CONSULTANT NURSE SHORTLY.
--- NOTE | 2020-04-26 22:52 | NUR ---
ASSUMED PT CARE FROM JACINDA BUSH AT 1915 PT LYING IN BED; ABLE TO MAKE NEEDS KNOWN DURING BEDSIDE SHIFT REPORT. PT REQUESTS A SHOWER; THEREFORE, CUELLO CATHETER REMOVED BY PCT AND ASSISTED TO SHOWER. PT VERY WEAK WITH POOR BALANCE; THEREFORE, SHOWER CHAIR USED TO TRANSFER TO SHOWER. PT IS VERY TIMID WITH CARES; DIDN'T WANT TO LET ME ASSESS SKIN IN ABDOMINAL FOLDS. ENCOURAGED PT TO ALLOW SKIN ASSESSMENT D/T TO RECENT HIVES FROM ALLERGIC REACTION; HOWEVER, PT DECLINED. ABLE TO ASSESS BLE'S AND UPPER BACKSIDE; DIABETIC WOUNDS TO BLE'S AND AN OPEN ABSCESS TO FOREHEAD THAT APPEARS TO HAVE RECENTLY BEEN DRAINED. PCT NOTICED A "RED AREA" ON BUTTOCKS DURING TRANSFER TO TOILET; HOWEVER, PT STATED IT WAS FROM HER HIVES. PT IS ON CONTACT PRECAUTIONS D/T MRSA TO WOUNDS. MEDICAL FLOOR STATUS WITH NO TELEMETRY AT THIS TIME; HOWEVER, VSS. CALL LIGHT WITHIN REACH AND PT IS ABLE TO MAKE HER NEEDS KNOWN.
[2020-04-27 03:36] LABS: BASOPHILS ABSOLUTE AUTO 0.02 K/mm3 (0.00-0.23); BASOPHILS PERCENT AUTO 0 % (0-2); EOSINOPHILS PERCENT AUTO 1 % (0-6); Hematocrit 34.9 % (33.0-51.0); Hemoglobin 12.2 g/dL (11.5-16.0); IMMATURE GRAN ABSOLUTE AUTO 0.05 K/mm3 (0.00-0.10); IMMATURE GRAN PERCENT AUTO 0 % (0-1); LYMPHOCYTES ABSOLUTE AUTO 3.07 K/mm3 (0.84-5.20); LYMPHOCYTES PERCENT AUTO 26 % (21-46); MONOCYTES ABSOLUTE AUTO 0.84 K/mm3 (0.16-1.47); MONOCYTES PERCENT AUTO 7 % (4-13); Mean Corpuscular HGB 31.8 pg (26.0-34.0); Mean Corpuscular Volume 91 fL (80-100); Mean Platelet Volume 9.6 fL (9.1-12.4); NEUTROPHILS ABSOLUTE AUTO 7.83 K/mm3 (1.96-9.15); NEUTROPHILS PERCENT AUTO 66 % (41-73); Platelet Count 208 K/mm3 (150-400); RDW Coefficient Variation 13.7 % (11.7-14.2); RDW Standard Deviation 45.9 fL (35.1-46.3); Red Blood Cell Count 3.84 M/mm3 (3.80-5.20); White Blood Cell Count 11.91 K/mm3 (4.00-11.30)
[2020-04-27 03:52] LABS: Anion Gap 8 mmol/L (6-16); Blood Urea Nitrogen 17 mg/dL (8-24); Bun/Creatinine Ratio 30.1 (12.0-20.0); CO2, Blood 26 mmol/L (21-32); Calcium, Blood 8.2 mg/dL (8.5-10.1); Chloride, Blood 104 mmol/L (98-108); Creatinine, Blood 0.56 mg/dL (0.40-1.00); Glomerular Filtration Rate >60 (60-); Glucose, Blood 167 mg/dL (70-99); Potassium, Blood 2.9 mmol/L (3.5-5.5); Sodium, Blood 138 mmol/L (136-145)
--- NOTE | 2020-04-27 05:19 | NUR ---
END OF SHIFT SUMMARY PT HASN'T SLEPT MUCH T/O NIGHT; HOWEVER, ABLE TO REPOSITION SELF IN BED. UP TO THE TOILET THREE TIMES SINCE CUELLO CATHETER HAS BEEN REMOVED. PT APPRECIATIVE OF SHOWER. WAS LOOKING FORWARD TO GOING HOME TODAY; HOWEVER, VOICED CONCERN THAT SHE MAY BE TOO WEAK AND NOT QUITE READY. WILL PASS ALONG REGARDING POSSIBLY PT/OT REFERRAL. CALL LIGHT WITHIN REACH; PT IS ABLE TO MAKE NEEDS KNOWN. REQUESTING TYELNOL FOR HEADACHE; THEREFORE, CALL MADE TO DR. NAQVI; AWAITING RETURN CALL.
--- NOTE | 2020-04-27 08:30 | NUR ---
ASSUMED CARE: REPORT RECEIVED FROM BETI Lagunas RN. ASSUMED CARE OF THIS PT AT APPROX 0700. ON ASSESSMENT, THE PT IS AWAKE, A&O. SHE IS PLEASANT & COOPERATIVE W/ CARE & MOTIVATED TO "GET BETTER." LS ARE DIM IN BASES, PT ON RA W/ O2 SATS > 92%. NO HEART MONITOR IN PLACE, PT IS MEDICAL STATUS. VSS. SHE IS HAVING INTERMITTENT C/O NAUSEA, MEDS PER EMAR. VOIDS W/O DIFFICULTY BY AMBULATING FOR BRP. SKIN CONDITION OVERALL UNCHANGED. WILL CONTINUE TO MONITOR & UPDATE NEEDED.
--- NOTE | 2020-04-27 11:45 | NUR ---
DR TATE: PROVIDER AT BEDSIDE TO EVAL PT. STS OKAY TO TO ORDER PHYSICAL THERAPY IF THE PT IS STILL FEELING WEAK/ DECONDITIONED, ORDERS PLACED. PT's WISHES TO BE DNR HAVE ALSO BEEN DISCUSSED & PROVIDER STS OKAY TO UPDATE THIS ORDER.
--- NOTE | 2020-04-27 12:27 | NUR ---
DR TATE / UPDATE: PROVIDER AT BEDSIDE TO EVAL PT. STS OKAY TO TO ORDER PHYSICAL THERAPY IF THE PT IS STILL FEELING WEAK/ DECONDITIONED, ORDERS PLACED. PT's PIV TO AMADOU IS LEAKING & NO LONGER PATENT. KYRIE Dinero RN, AT BEDSIDE FOR POWERGLIDE PLACEMENT SO THAT KCL INFUSION MAY BE COMPLETED.
--- NOTE | 2020-04-27 15:30 | NUR ---
BED ASSIGNMENT: PT HAS BEEN ASSIGNED ROOM 341 FOR TX. REPORT HAS BEEN GIVEN TO JACINDA DAO TO ASSUME CARE. PINKY PHYS THERAPIST, CURRENTLY AT BEDSIDE COMPLETING EVAL. PT WILL BE TRANSFERRED AFTER EVAL COMPLETE.
[2020-04-27 16:00] LABS: Vancomycin, Trough 29.1 ug/mL (5.0-10.0)
--- NOTE | 2020-04-27 18:11 | NUR ---
RECIEVED PT FROM ICU, ALERT AND ORIENTED, NEEDING STANDBY ASSIST TO BATHROOM. PT CONT. TO HAVE N/V AND IS BEING TREATED PER EMAR. PT IS WORRIED ABOUT GOING HOME AND AMBULATING SAFELY WITH STAIRS. PT PG IS RUNNING AND WNL, BED IN LOW POSITION, CALL LIGHT WITHIN REACH. STAFF WILL CONT. TO MONITOR.
--- NOTE | 2020-04-27 23:56 | NUR ---
PHYSICIAN COMMUNICATION CONTACTED CUPROUS CHLORIDE OPERATOR PHYSICIAN, DR GEE, TO NOTIFY HER THAT THE PATIENT WAS REQUESTING SOMETHING TO HELP HER SLEEP AND THAT MELATONIN WAS NOT EFFECTIVE FOR HER. DR GEE ORDERED 0.5 MG ALPRAZOLAM BEFORE BED NEEDED.
[2020-04-28 05:48] LABS: Hematocrit 32.7 % (33.0-51.0); Hemoglobin 11.2 g/dL (11.5-16.0); Mean Corpuscular HGB 31.4 pg (26.0-34.0); Mean Corpuscular HGB Conc 34.3 g/dL (31.5-36.5); Mean Corpuscular Volume 92 fL (80-100); Mean Platelet Volume 9.6 fL (9.1-12.4); Platelet Count 201 K/mm3 (150-400); RDW Coefficient Variation 13.6 % (11.7-14.2); RDW Standard Deviation 46.2 fL (35.1-46.3); Red Blood Cell Count 3.57 M/mm3 (3.80-5.20); White Blood Cell Count 7.73 K/mm3 (4.00-11.30)
[2020-04-28 06:05] LABS: Albumin, Blood 2.3 g/dL (3.4-5.0); Anion Gap 5 mmol/L (6-16); Blood Urea Nitrogen 7 mg/dL (8-24); Bun/Creatinine Ratio 14.8 (12.0-20.0); CO2, Blood 29 mmol/L (21-32); Calcium, Blood 7.9 mg/dL (8.5-10.1); Chloride, Blood 107 mmol/L (98-108); Creatinine, Blood 0.47 mg/dL (0.40-1.00); Glomerular Filtration Rate >60 (60-); Glucose, Blood 148 mg/dL (70-99); Phosphorus, Blood 3.4 mg/dL (2.5-4.9); Potassium, Blood 3.3 mmol/L (3.5-5.5); Sodium, Blood 141 mmol/L (136-145)
--- NOTE | 2020-04-28 07:33 | NUR ---
SHIFT SUMMARY PATIENT ALERT AND ORIENTED. HAD NO COMPLAINTS OF PAIN OR SHORTNESS OF BREATH. WAS MEDICATED PER EMAR FOR NAUSEA. PATIENT SLEPT WELL AFTER RECEIVING PRN SLEEP MEDICATION. POWERGLIDE PATENT AND INFUSING. BED IN LOWEST POSITION WITH WHEELS LOCKED. CALL LIGHT WITHIN REACH. REPORT GIVEN TO ONCOMING RN.
[2020-04-28] MEDS ORDERED: CLIN150 PO (12:09)
[2020-04-28] MEDS ORDERED: GLIP5ER PO (12:15)
[2020-04-28] MEDS ORDERED: LISI5 PO (12:16)
[2020-04-28] MEDS ORDERED: METO5A PO (12:17)
[2020-04-28] MEDS ORDERED: ONDA4ODT PO (12:19)
[2020-04-28] MEDS ORDERED: PANT40 PO (12:20)
[2020-04-28] MEDS ORDERED: LACT PO (12:21)
--- NOTE | 2020-04-28 15:41 | NUR ---
PT WAS DISCHARGED ALERT AND ORIENTED X4, BELONGING AT SIDE AND MAKING NO COMPLAINTS AT THE MOMENT. PT'S PG CATH WAS DC'D AND WNL. PT WAS EDUCATED ON FOLLOW UP APPOINTMENTS NEEDED FOR PODIATRY AND PRIMARY CARE. EDUCATED ON NEW MEDICATIONS AND DM FOOT CARE. PT WAS ABLE TO TEACH BACK.
== END 2020-04-28 13:48 | disposition home or self-care (01) | DRG 915 ==
LOC: ER 22:41 → ICUE 22:42 → ICUW 22:42 → ICUE 22:43 → ER 04-25 00:47 → ICUE 04-25 00:47 → ICUW 04-25 00:47 → ICUE 04-25 01:43 → MEDS 04-25 12:32 → ICUE 04-25 12:33 → MEDS 04-27 16:12
PROVIDERS: Emergency Medicine; Internal Medicine; Internal Medicine Critical Care Medicine; Pharmacist; ADMIT Internal Medicine
PROC: 0BH17EZ Insertion of Endotracheal Airway into Trachea, Via Natural or Artificial Opening (ICD-10-PCS; principal; 2020-04-25)
PROC: 5A1945Z Respiratory Ventilation, 24-96 Consecutive Hours (ICD-10-PCS; 2020-04-25)
DX: T88.6XXA Anaphylactic reaction due to adverse effect of correct drug or medicament properly administered, initial encounter (principal); E11.10 Type 2 diabetes mellitus with ketoacidosis without coma; J96.00 Acute respiratory failure, unspecified whether with hypoxia or hypercapnia; Z68.43 Body mass index [BMI] 50.0-59.9, adult; T36.95XA Adverse effect of unspecified systemic antibiotic, initial encounter; E11.43 Type 2 diabetes mellitus with diabetic autonomic (poly)neuropathy; K31.84 Gastroparesis; E03.9 Hypothyroidism, unspecified; F31.9 Bipolar disorder, unspecified; K20.90 Esophagitis, unspecified without bleeding; K21.9 Gastro-esophageal reflux disease without esophagitis; E66.01 Morbid (severe) obesity due to excess calories; E87.6 Hypokalemia; B95.62 Methicillin resistant Staphylococcus aureus infection as the cause of diseases classified elsewhere; E11.621 Type 2 diabetes mellitus with foot ulcer; L97.529 Non-pressure chronic ulcer of other part of left foot with unspecified severity; R11.10 Vomiting, unspecified; F12.90 Cannabis use, unspecified, uncomplicated; Z79.899 Other long term (current) drug therapy
CPT/HCPCS: 31500; 31720; 36415; 51702; 71045; 73630; 80048; 80053; 80069; 80202; 82947; 83036; 83735; 84132; 85025; 85027; 94002; 94003; 94640; 96361; 96372; 96372-59; 96374-59; 96375; 96375-59; 96376; 97161; 97530; 99282; 99285-25; A9270; C1751; C9113; G0378; J0171; J0330; J0696; J1200; J1630; J1650; J1815; J2250; J2405; J2704; J2765; J2920; J2930; J3010; J3370; J3480; J7030; J7050

== ENCOUNTER 2020-05-23 13:44 | Emergency (ER) | payer OTHER ==
[~2020-05-23] VITALS: Ht 172.7 cm; Wt 158.8 kg
[~2020-05-23 13:44] MED LIST changes: +CLIN150 PO; +GLIP5ER PO; +LACT PO; +LISI5 PO; +METO5A PO; +PANT40 PO
== END 2020-05-23 15:25 | disposition home or self-care (01) ==
LOC: ER 13:44
DX: S43.51XA Sprain of right acromioclavicular joint, initial encounter (principal); E11.9 Type 2 diabetes mellitus without complications; F17.210 Nicotine dependence, cigarettes, uncomplicated; Z91.018 Allergy to other foods; Z79.84 Long term (current) use of oral hypoglycemic drugs; Z91.09 Other allergy status, other than to drugs and biological substances; X50.1XXA Overexertion from prolonged static or awkward postures, initial encounter
CPT/HCPCS: 73030; 99283-25

== ENCOUNTER 2020-06-04 15:01 | Emergency (ER) | payer OTHER ==
[~2020-06-04] VITALS: Ht 172.7 cm; Wt 16.3 kg
[2020-06-04] MEDS ORDERED: Bactrim Ds Tab1 EACH PO (15:35)
[2020-06-04] MEDS ORDERED: CEPH500 PO (15:35)
== END 2020-06-04 15:41 | disposition home or self-care (01) ==
LOC: ER 15:01
DX: L02.416 Cutaneous abscess of left lower limb (principal); L03.116 Cellulitis of left lower limb; E11.9 Type 2 diabetes mellitus without complications; E03.9 Hypothyroidism, unspecified; Z79.899 Other long term (current) drug therapy; Z91.018 Allergy to other foods; Z23 Encounter for immunization
CPT/HCPCS: 90471; 90714; 99282-25

== ENCOUNTER 2020-06-07 13:41 | Emergency (ER) | payer OTHER ==
[~2020-06-07] VITALS: Ht 172.7 cm; Wt 163.3 kg
== END 2020-06-07 17:00 | disposition left against medical advice (07) ==
LOC: ER 13:41
DX: R11.2 Nausea with vomiting, unspecified (principal); Z53.21 Procedure and treatment not carried out due to patient leaving prior to being seen by health care provider
CPT/HCPCS: 96374; J2405

== ENCOUNTER 2020-06-08 18:22 | Emergency (ER) | payer OTHER ==
[~2020-06-08] VITALS: Ht 172.7 cm; Wt 167.8 kg
== END 2020-06-08 19:11 | disposition left against medical advice (07) ==
LOC: ER 18:22
DX: R11.2 Nausea with vomiting, unspecified (principal); Z79.84 Long term (current) use of oral hypoglycemic drugs; Z79.899 Other long term (current) drug therapy; Z53.21 Procedure and treatment not carried out due to patient leaving prior to being seen by health care provider
CPT/HCPCS: 96374; 99284-25; J2405

== ENCOUNTER 2020-08-12 14:09 | Emergency (ER) | payer OTHER ==
[~2020-08-12] VITALS: Ht 172.7 cm; Wt 158.8 kg
[2020-08-12 14:40] LABS: BASOPHILS ABSOLUTE AUTO 0.03 K/mm3 (0.00-0.23); BASOPHILS PERCENT AUTO 0 % (0-2); EOSINOPHILS ABSOLUTE AUTO 0.09 K/mm3 (0.00-0.68); EOSINOPHILS PERCENT AUTO 1 % (0-6); Hematocrit 36.7 % (33.0-51.0); Hemoglobin 12.6 g/dL (11.5-16.0); IMMATURE GRAN ABSOLUTE AUTO 0.04 K/mm3 (0.00-0.10); IMMATURE GRAN PERCENT AUTO 0 % (0-1); LYMPHOCYTES ABSOLUTE AUTO 2.39 K/mm3 (0.84-5.20); LYMPHOCYTES PERCENT AUTO 25 % (21-46); MONOCYTES ABSOLUTE AUTO 0.47 K/mm3 (0.16-1.47); MONOCYTES PERCENT AUTO 5 % (4-13); Mean Corpuscular HGB 30.1 pg (26.0-34.0); Mean Corpuscular HGB Conc 34.3 g/dL (31.5-36.5); Mean Corpuscular Volume 88 fL (80-100); Mean Platelet Volume 9.3 fL (9.1-12.4); NEUTROPHILS ABSOLUTE AUTO 6.56 K/mm3 (1.96-9.15); NEUTROPHILS PERCENT AUTO 69 % (41-73); Platelet Count 320 K/mm3 (150-400); RDW Coefficient Variation 14.8 % (11.7-14.2); RDW Standard Deviation 47.4 fL (35.1-46.3); Red Blood Cell Count 4.19 M/mm3 (3.80-5.20); White Blood Cell Count 9.58 K/mm3 (4.00-11.30)
[2020-08-12 15:10] LABS: Alanine Aminotransfer (ALT/SGP 15 U/L (12-78); Albumin, Blood 3.3 g/dL (3.4-5.0); Albumin/Globulin Ratio 0.6 (0.8-1.8); Alk Phos 89 U/L (50-136); Anion Gap 9 mmol/L (6-16); Aspartate Aminotrans (AST/SGOT 15 U/L (12-37); Bilirubin, Total 1.4 mg/dL (0.1-1.0); Blood Urea Nitrogen 17 mg/dL (8-24); Bun/Creatinine Ratio 27.9 (12.0-20.0); CO2, Blood 24 mmol/L (21-32); Calcium, Blood 9.7 mg/dL (8.5-10.1); Chloride, Blood 99 mmol/L (98-108); Creatinine, Blood 0.61 mg/dL (0.40-1.00); Globulin, Blood 5.6 g/dL (2.2-4.0); Glomerular Filtration Rate >60 (60-); Glucose, Blood 173 mg/dL (70-99); Potassium, Blood 3.7 mmol/L (3.5-5.5); Sodium, Blood 132 mmol/L (136-145); Total Protein, Blood 8.9 g/dL (6.4-8.2)
== END 2020-08-12 16:05 | disposition left against medical advice (07) ==
LOC: ER 14:09
PROVIDERS: Physician Assistant
DX: R11.10 Vomiting, unspecified (principal); R06.02 Shortness of breath; L03.116 Cellulitis of left lower limb; Z53.20 Procedure and treatment not carried out because of patient's decision for unspecified reasons; F17.210 Nicotine dependence, cigarettes, uncomplicated; Z91.018 Allergy to other foods; Z91.09 Other allergy status, other than to drugs and biological substances; Z79.899 Other long term (current) drug therapy
CPT/HCPCS: 36415; 71045; 80053; 83690; 84484; 85025; 93005; 93010; 96361; 96374; 96375; 99284-25; J1630; J2405; J7030

== ENCOUNTER 2020-09-02 13:50 | Inpatient (IN) | payer OTHER ==
[~2020-09-02] VITALS: Ht 172.7 cm; Wt 159.5 kg
[2020-09-02 14:39] LABS: Hemoglobin 11.4 g/dL (11.5-16.0); Mean Corpuscular HGB 30.2 pg (26.0-34.0); Mean Corpuscular HGB Conc 33.5 g/dL (31.5-36.5); Mean Corpuscular Volume 90 fL (80-100); Mean Platelet Volume 9.9 fL (9.1-12.4); Platelet Count 236 K/mm3 (150-400); RDW Coefficient Variation 14.6 % (11.7-14.2); RDW Standard Deviation 48.6 fL (35.1-46.3); Red Blood Cell Count 3.78 M/mm3 (3.80-5.20); White Blood Cell Count 18.22 K/mm3 (4.00-11.30)
[2020-09-02 15:02] LABS: Alanine Aminotransfer (ALT/SGP 16 U/L (12-78); Albumin, Blood 2.7 g/dL (3.4-5.0); Albumin/Globulin Ratio 0.5 (0.8-1.8); Alk Phos 105 U/L (50-136); Anion Gap 6 mmol/L (6-16); Aspartate Aminotrans (AST/SGOT 18 U/L (12-37); BAND PERCENT MAN 19 % (0-8); BASOPHILS PERCENT MAN 0 % (0-2); Blood Urea Nitrogen 22 mg/dL (8-24); Bun/Creatinine Ratio 36.1 (12.0-20.0); CO2, Blood 24 mmol/L (21-32); Calcium, Blood 8.8 mg/dL (8.5-10.1); Chloride, Blood 103 mmol/L (98-108); Creatinine, Blood 0.61 mg/dL (0.40-1.00); EOSINOPHILS ABSOLUTE MAN 0.18 K/mm3 (0.00-0.68); EOSINOPHILS PERCENT MAN 1 % (0-6); Globulin, Blood 5.5 g/dL (2.2-4.0); Glomerular Filtration Rate >60 (60-); Glucose, Blood 207 mg/dL (70-99); LYMPHOCYTES ABSOLUTE MAN 1.09 K/mm3 (0.84-5.20); LYMPHOCYTES PERCENT MAN 6 % (21-46); METAMYELOCYTE ABSOLUTE MAN 0.18 K/mm3 (0.00-0.00); METAMYELOCYTE PERCENT MAN 1 % (0-0); MONOCYTES ABSOLUTE MAN 0.18 K/mm3 (0.16-1.47); MONOCYTES PERCENT MAN 1 % (4-13); NEUTROPHILS ABSOLUTE MAN 16.58 K/mm3 (1.96-9.15); Potassium, Blood 3.8 mmol/L (3.5-5.5); SEG NEUTROPHILS PERCENT MAN 72 % (41-73); Sodium, Blood 133 mmol/L (136-145); TOTAL CELLS COUNTED 100; Total Protein, Blood 8.2 g/dL (6.4-8.2)
[2020-09-02] MEDS ORDERED: SEMGLEE PE100 UNIT/1 SC (17:16)
[2020-09-02] MEDS ORDERED: EPINEPHRIN0.3 MG/0.1 (17:16)
[2020-09-02 17:25] LABS: Source, Urine Voided
[2020-09-02 17:32] LABS: Appearance, Urine Clear (Clear); Bilirubin, Urine Neg (Neg); Blood, Urine 1+ (Neg); Color, Urine Yellow (P-Yellow); Glucose Qualitative, Urine 3+ (Neg); Ketones, Urine Neg (Neg); Leukocyte Esterase, Urine 1+ (Neg); Nitrite, Urine Neg (Neg); Protein, Urine 2+ (Neg); Urobilinogen, Urine 1+ (Normal)
[2020-09-02 17:58] LABS: Bacteria Few /hpf; Red Blood Cells, Urine 0-2 /hpf (0-2); Squamous Epithelial Cells Few /hpf (Few)
--- NOTE | 2020-09-02 18:19 | NUR ---
1811 PT ARRIVED TO MEDICAL FLOOR FROM ER BY W/Ab. PT ASSITED INTO GOWN BY MINDY. L CHEST IV APPEARS TO HAVE INFILTRATED, IV VANCO INFUSION STOPPED AT THIS TIME.
[2020-09-02] MEDS ORDERED: CYMBALTA30 M1 PO (19:33)
[2020-09-03 05:03] LABS: BASOPHILS ABSOLUTE AUTO 0.02 K/mm3 (0.00-0.23); BASOPHILS PERCENT AUTO 0 % (0-2); EOSINOPHILS ABSOLUTE AUTO 0.14 K/mm3 (0.00-0.68); EOSINOPHILS PERCENT AUTO 1 % (0-6); Hematocrit 30.6 % (33.0-51.0); Hemoglobin 10.4 g/dL (11.5-16.0); IMMATURE GRAN ABSOLUTE AUTO 0.08 K/mm3 (0.00-0.10); IMMATURE GRAN PERCENT AUTO 1 % (0-1); LYMPHOCYTES PERCENT AUTO 8 % (21-46); MONOCYTES ABSOLUTE AUTO 0.88 K/mm3 (0.16-1.47); MONOCYTES PERCENT AUTO 5 % (4-13); Mean Corpuscular HGB 30.1 pg (26.0-34.0); Mean Corpuscular Volume 88 fL (80-100); Mean Platelet Volume 10.1 fL (9.1-12.4); NEUTROPHILS ABSOLUTE AUTO 14.65 K/mm3 (1.96-9.15); NEUTROPHILS PERCENT AUTO 85 % (41-73); Platelet Count 234 K/mm3 (150-400); RDW Coefficient Variation 14.6 % (11.7-14.2); RDW Standard Deviation 47.2 fL (35.1-46.3); Red Blood Cell Count 3.46 M/mm3 (3.80-5.20); White Blood Cell Count 17.17 K/mm3 (4.00-11.30)
[2020-09-03 05:20] LABS: Anion Gap 5 mmol/L (6-16); Blood Urea Nitrogen 12 mg/dL (8-24); Bun/Creatinine Ratio 24.9 (12.0-20.0); CO2, Blood 26 mmol/L (21-32); Calcium, Blood 8.4 mg/dL (8.5-10.1); Chloride, Blood 103 mmol/L (98-108); Creatinine, Blood 0.48 mg/dL (0.40-1.00); Glomerular Filtration Rate >60 (60-); Glucose, Blood 119 mg/dL (70-99); Potassium, Blood 3.7 mmol/L (3.5-5.5); Sodium, Blood 134 mmol/L (136-145)
--- NOTE | 2020-09-03 06:49 | NUR ---
SUMMARY PT PAIN TX PER EMAR. PT HAD A TEMP NOTED AND WAS GIVEN APAP AND FEVER BROKE. PT WAS ABLE TO SLEEP WELL T/O SHIFT. PT WOKE THIS AM W/ N/V. TX PER EMAR W/ RELIEF. CALL LIGHT IN REACH.
--- NOTE | 2020-09-03 18:12 | NUR ---
SHIFT SUMMARY PT IS AOX4. PT MEDICATED FOR PAIN X2 THIS SHIFT AND X1 FOR FEVER. PT DENIES N/V, SOB. PT IS INDEPENDENT IN ROOM. PT APPETITE IS GOOD. WOUND DRESSINGS ARE C/D/I. NO PROCEDURES PERFORMED THIS SHIFT. PLAN IS TO CONTINUE ABX TX. PT'S IN TO VISIT TODAY. PT IS IN BED, CALL LIGHT IN REACH, BED IN LOW POSITION.
[2020-09-04 05:44] LABS: BASOPHILS ABSOLUTE AUTO 0.03 K/mm3 (0.00-0.23); BASOPHILS PERCENT AUTO 0 % (0-2); EOSINOPHILS ABSOLUTE AUTO 0.18 K/mm3 (0.00-0.68); EOSINOPHILS PERCENT AUTO 2 % (0-6); Hematocrit 30.2 % (33.0-51.0); Hemoglobin 9.9 g/dL (11.5-16.0); IMMATURE GRAN ABSOLUTE AUTO 0.12 K/mm3 (0.00-0.10); IMMATURE GRAN PERCENT AUTO 1 % (0-1); LYMPHOCYTES ABSOLUTE AUTO 1.73 K/mm3 (0.84-5.20); LYMPHOCYTES PERCENT AUTO 15 % (21-46); MONOCYTES ABSOLUTE AUTO 0.71 K/mm3 (0.16-1.47); MONOCYTES PERCENT AUTO 6 % (4-13); Mean Corpuscular HGB 29.8 pg (26.0-34.0); Mean Corpuscular HGB Conc 32.8 g/dL (31.5-36.5); Mean Corpuscular Volume 91 fL (80-100); Mean Platelet Volume 9.9 fL (9.1-12.4); NEUTROPHILS ABSOLUTE AUTO 8.45 K/mm3 (1.96-9.15); NEUTROPHILS PERCENT AUTO 75 % (41-73); Platelet Count 227 K/mm3 (150-400); RDW Coefficient Variation 14.7 % (11.7-14.2); RDW Standard Deviation 49.5 fL (35.1-46.3); Red Blood Cell Count 3.32 M/mm3 (3.80-5.20); White Blood Cell Count 11.22 K/mm3 (4.00-11.30)
[2020-09-04 06:12] LABS: Anion Gap 5 mmol/L (6-16); Blood Urea Nitrogen 8 mg/dL (8-24); Bun/Creatinine Ratio 14.7 (12.0-20.0); CO2, Blood 29 mmol/L (21-32); Calcium, Blood 8.5 mg/dL (8.5-10.1); Chloride, Blood 103 mmol/L (98-108); Creatinine, Blood 0.54 mg/dL (0.40-1.00); Glomerular Filtration Rate >60 (60-); Glucose, Blood 145 mg/dL (70-99); Potassium, Blood 3.8 mmol/L (3.5-5.5); Sodium, Blood 137 mmol/L (136-145); Thyroxine (T4) 8.6 ug/dL (4.8-13.9)
--- NOTE | 2020-09-04 06:26 | NUR ---
SUMMARY PAIN TX PER EMAR. PT REPORTS RELIEF. PT REPORTS FEELING BETTER. PT WAS ABLE TO SLEEP WELL T/O SHIFT. PT HAD NO NEW ISSUES NOTED. PT CURRENTLY AWAKE IN NO DISTRESS. CALL LIGHT IN REACH.
--- NOTE | 2020-09-04 17:09 | NUR ---
PATIENT IS ALERT AND ORIENTED. SHE WAS TEARFUL THIS MORNING. STATED SHE HASNT TAKEN HER HOME MEDICATIONS ALL WEEK. HER DULOXETINE HAS BEEN ORDERED AND ADMINISTERED. SHE IS INDEPENDENT IN HER ROOM. PATIENT C/O RLE PAIN BUT STATES IT HAS IMPROVED GREATLY. WOUND CARE WAS COMPLETED THIS AFTERNOON AND THE PATIENT TOLERATED IT WELL. NO C/O N/V.
--- NOTE | 2020-09-05 04:29 | NUR ---
SHIFT SUMMARY PT EXPRESSES CONCERNS FOR GOING HOME. STATING, "I CAN'T WALK". PT REPORTS THAT THIS IS RELATED TO THE PAIN IN RIGHT FOOT WHEN ATTEMPTING TO WALK. MEDICATED PER EMAR. PT REPORTED THAT THE PAIN MEDICATION "TAKES THE EDGE OFF" AND THAT SHE WAS A HIGH TOLERANCE FOR PAIN MEDICATION. DRESSING TO RIGHT FOOT REMAINED C/D/I. SWELLING TO BLE'S. PT PLEASANT AND COOPERATIVE. VITAL SIGNS STABLE. NO ACUTE CHANGES THIS EVENING. WILL CONTINUE TO MONITOR.
[2020-09-05 05:31] LABS: Hematocrit 28.7 % (33.0-51.0); Hemoglobin 9.5 g/dL (11.5-16.0); Mean Corpuscular HGB 29.5 pg (26.0-34.0); Mean Corpuscular HGB Conc 33.1 g/dL (31.5-36.5); Mean Corpuscular Volume 89 fL (80-100); Mean Platelet Volume 9.9 fL (9.1-12.4); Platelet Count 227 K/mm3 (150-400); RDW Coefficient Variation 14.6 % (11.7-14.2); RDW Standard Deviation 47.9 fL (35.1-46.3); Red Blood Cell Count 3.22 M/mm3 (3.80-5.20)
[2020-09-05 05:58] LABS: Anion Gap 5 mmol/L (6-16); Blood Urea Nitrogen 7 mg/dL (8-24); Bun/Creatinine Ratio 14.2 (12.0-20.0); CO2, Blood 28 mmol/L (21-32); Calcium, Blood 8.5 mg/dL (8.5-10.1); Chloride, Blood 102 mmol/L (98-108); Creatinine, Blood 0.49 mg/dL (0.40-1.00); Ferritin, Serum 358 ng/mL (8-252); Glomerular Filtration Rate >60 (60-); Glucose, Blood 184 mg/dL (70-99); Iron Serum 31 ug/dL (50-170); Percent Saturation 16.1 % (15.0-50.0); Potassium, Blood 3.9 mmol/L (3.5-5.5); Sodium, Blood 135 mmol/L (136-145); Total Iron Binding Capacity 193 ug/dL (250-450)
[2020-09-05] MEDS ORDERED: DOXY100 PO (09:49)
[2020-09-05] MEDS ORDERED: OXYC5 PO (09:50)
--- NOTE | 2020-09-05 10:43 | NUR ---
DISCHARGE INSTRUCTIONS WENT OVER WITH PATIENT. ALL QUESTIONS ANSWERED. POWER GLIDE REMOVED. WALKER HAS BEEN ORDERED BY DIGESTER CAPPER. DRESSING TO R FOOT CHANGED. PATIENT IN ROOM GETTING READY TO DISCHARGE HOME.
--- NOTE | 2020-09-05 12:01 | NUR ---
PATIENT DISCHARGED HOME AT 1200. CASING MATERIAL WEIGHER ESCORTED PATIENT OUT IN WHEELCHAIR.
== END 2020-09-05 12:02 | disposition home or self-care (01) | DRG 872 ==
LOC: ER 13:50 → MEDS 16:25
PROVIDERS: Emergency Medicine; ADMIT Internal Medicine
PROC: 0H9MXZX Drainage of Right Foot Skin, External Approach, Diagnostic (ICD-10-PCS; principal; 2020-09-02)
DX: A40.9 Streptococcal sepsis, unspecified (principal); L03.115 Cellulitis of right lower limb; Z68.43 Body mass index [BMI] 50.0-59.9, adult; E03.9 Hypothyroidism, unspecified; F17.210 Nicotine dependence, cigarettes, uncomplicated; E66.9 Obesity, unspecified; E11.9 Type 2 diabetes mellitus without complications; F12.188 Cannabis abuse with other cannabis-induced disorder; R11.2 Nausea with vomiting, unspecified; K20.90 Esophagitis, unspecified without bleeding; Z79.899 Other long term (current) drug therapy; Z79.84 Long term (current) use of oral hypoglycemic drugs; Z86.14 Personal history of Methicillin resistant Staphylococcus aureus infection
CPT/HCPCS: 10060; 36415; 76882; 80048; 80053; 81001; 82728; 82947; 83540; 83550; 83605; 83690; 84436; 84443; 84702; 85025; 85027; 87040; 87070; 87075; 87086; 87147; 87205; 96374-59; 97161; 97530; 99284-25; A9270; C1751; J0690; J2405; J3370; J7050; J7120

== ENCOUNTER 2020-10-11 08:51 | Day surgery (SDC) | payer OTHER ==
[~2020-10-11 08:51] MED LIST changes: +CYMBALTA30 M1 PO; +DOXY100 PO; +EPINEPHRIN0.3 MG/0.1; +OXYC5 PO; +SEMGLEE PE100 UNIT/1 SC
== END 2020-10-11 23:36 | disposition home or self-care (01) ==
LOC: WOUND 08:51
DX: E11.621 Type 2 diabetes mellitus with foot ulcer (principal); L97.512 Non-pressure chronic ulcer of other part of right foot with fat layer exposed; I89.0 Lymphedema, not elsewhere classified; A49.02 Methicillin resistant Staphylococcus aureus infection, unspecified site; E11.51 Type 2 diabetes mellitus with diabetic peripheral angiopathy without gangrene; I87.2 Venous insufficiency (chronic) (peripheral)
CPT/HCPCS: A9270; G0463

== ENCOUNTER 2020-12-31 15:28 | Emergency (ER) | payer OTHER ==
[~2020-12-31] VITALS: Ht 172.7 cm; Wt 152.4 kg
[2020-12-31 16:21] LABS: BASOPHILS ABSOLUTE AUTO 0.05 K/mm3 (0.00-0.23); BASOPHILS PERCENT AUTO 0 % (0-2); EOSINOPHILS ABSOLUTE AUTO 0.26 K/mm3 (0.00-0.68); EOSINOPHILS PERCENT AUTO 2 % (0-6); Hematocrit 34.5 % (33.0-51.0); Hemoglobin 11.6 g/dL (11.5-16.0); IMMATURE GRAN ABSOLUTE AUTO 0.04 K/mm3 (0.00-0.10); IMMATURE GRAN PERCENT AUTO 0 % (0-1); LYMPHOCYTES ABSOLUTE AUTO 1.58 K/mm3 (0.84-5.20); LYMPHOCYTES PERCENT AUTO 13 % (21-46); MONOCYTES ABSOLUTE AUTO 0.91 K/mm3 (0.16-1.47); MONOCYTES PERCENT AUTO 7 % (4-13); Mean Corpuscular HGB 30.2 pg (26.0-34.0); Mean Corpuscular HGB Conc 33.6 g/dL (31.5-36.5); Mean Corpuscular Volume 90 fL (80-100); Mean Platelet Volume 9.8 fL (9.1-12.4); NEUTROPHILS PERCENT AUTO 77 % (41-73); Platelet Count 299 K/mm3 (150-400); RDW Coefficient Variation 14.8 % (11.7-14.2); RDW Standard Deviation 49.1 fL (35.1-46.3); Red Blood Cell Count 3.84 M/mm3 (3.80-5.20); White Blood Cell Count 12.34 K/mm3 (4.00-11.30)
[2020-12-31 16:41] LABS: Alanine Aminotransfer (ALT/SGP 12 U/L (12-78); Albumin, Blood 2.7 g/dL (3.4-5.0); Albumin/Globulin Ratio 0.5 (0.8-1.8); Alk Phos 80 U/L (50-136); Anion Gap 4 mmol/L (6-16); Aspartate Aminotrans (AST/SGOT 7 U/L (12-37); Bilirubin, Total 0.5 mg/dL (0.1-1.0); Blood Urea Nitrogen 14 mg/dL (8-24); Bun/Creatinine Ratio 26.7 (12.0-20.0); CO2, Blood 27 mmol/L (21-32); Calcium, Blood 9.9 mg/dL (8.5-10.1); Chloride, Blood 103 mmol/L (98-108); Creatinine, Blood 0.53 mg/dL (0.40-1.00); Globulin, Blood 5.4 g/dL (2.2-4.0); Glomerular Filtration Rate >60 (60-); Glucose, Blood 242 mg/dL (70-99); Potassium, Blood 3.8 mmol/L (3.5-5.5); Sodium, Blood 134 mmol/L (136-145); Total Protein, Blood 8.1 g/dL (6.4-8.2)
== END 2020-12-31 16:38 | disposition left against medical advice (07) ==
LOC: ER 15:28
PROVIDERS: Physician Assistant
DX: R11.10 Vomiting, unspecified (principal); Z53.21 Procedure and treatment not carried out due to patient leaving prior to being seen by health care provider
CPT/HCPCS: 36415; 80053; 85025; 96374; 99282-25; J2405

== ENCOUNTER 2021-01-04 14:47 | Inpatient (IN) | payer OTHER ==
[~2021-01-04] VITALS: Ht 172.7 cm; Wt 147.0 kg
[2021-01-04 15:23] LABS: BASOPHILS ABSOLUTE AUTO 0.05 K/mm3 (0.00-0.23); BASOPHILS PERCENT AUTO 0 % (0-2); EOSINOPHILS ABSOLUTE AUTO 0.01 K/mm3 (0.00-0.68); EOSINOPHILS PERCENT AUTO 0 % (0-6); Hematocrit 35.4 % (33.0-51.0); Hemoglobin 12.6 g/dL (11.5-16.0); IMMATURE GRAN ABSOLUTE AUTO 0.24 K/mm3 (0.00-0.10); IMMATURE GRAN PERCENT AUTO 1 % (0-1); LYMPHOCYTES ABSOLUTE AUTO 1.46 K/mm3 (0.84-5.20); LYMPHOCYTES PERCENT AUTO 7 % (21-46); MONOCYTES PERCENT AUTO 4 % (4-13); Mean Corpuscular HGB Conc 35.6 g/dL (31.5-36.5); Mean Corpuscular Volume 84 fL (80-100); Mean Platelet Volume 9.5 fL (9.1-12.4); NEUTROPHILS ABSOLUTE AUTO 19.72 K/mm3 (1.96-9.15); NEUTROPHILS PERCENT AUTO 88 % (41-73); Platelet Count 390 K/mm3 (150-400); RDW Coefficient Variation 14.1 % (11.7-14.2); RDW Standard Deviation 43.1 fL (35.1-46.3); White Blood Cell Count 22.38 K/mm3 (4.00-11.30)
[2021-01-04 15:44] LABS: Alanine Aminotransfer (ALT/SGP 18 U/L (12-78); Albumin/Globulin Ratio 0.5 (0.8-1.8); Alk Phos 93 U/L (50-136); Anion Gap 11 mmol/L (6-16); Aspartate Aminotrans (AST/SGOT 15 U/L (12-37); Bilirubin, Total 1.7 mg/dL (0.1-1.0); Blood Urea Nitrogen 8 mg/dL (8-24); Bun/Creatinine Ratio 13.2 (12.0-20.0); CO2, Blood 29 mmol/L (21-32); Calcium, Blood 9.5 mg/dL (8.5-10.1); Chloride, Blood 84 mmol/L (98-108); Creatinine, Blood 0.61 mg/dL (0.40-1.00); Globulin, Blood 5.7 g/dL (2.2-4.0); Glomerular Filtration Rate >60 (60-); Glucose, Blood 418 mg/dL (70-99); Potassium, Blood 2.8 mmol/L (3.5-5.5); Sodium, Blood 124 mmol/L (136-145); Total Protein, Blood 8.7 g/dL (6.4-8.2)
[2021-01-04 20:45] LABS: Magnesium, Blood 1.6 mg/dL (1.6-2.4)
[2021-01-05 04:13] LABS: SARS-Cov-2 (COVID-19) PCR, MMC NEGATIVE (NEGATIVE)
[2021-01-05 08:49] LABS: Anion Gap 11 mmol/L (6-16); Blood Urea Nitrogen 7 mg/dL (8-24); Bun/Creatinine Ratio 10.8 (12.0-20.0); CO2, Blood 31 mmol/L (21-32); Calcium, Blood 8.7 mg/dL (8.5-10.1); Chloride, Blood 92 mmol/L (98-108); Creatinine, Blood 0.65 mg/dL (0.40-1.00); Glomerular Filtration Rate >60 (60-); Glucose, Blood 354 mg/dL (70-99); Potassium, Blood 3.5 mmol/L (3.5-5.5)
[2021-01-05 08:51] LABS: Sodium, Blood 134 mmol/L (136-145)
--- NOTE | 2021-01-05 13:00 | NUR ---
Pt arrived to 310 via wheelchair from ed, report was obtained, pt up indep in room, a/ox3, pleasant and cooperative with care, follows commands well, lungs are clear t/o, resp even and unlabored, no cough noted, hrr, 2+edema noted to b/l le, ppp+faint, cap refill <3sec, vs stable, afebrile, iv site to nemours foundation, she reports she always needs a power glide, btx4, abd flat soft nontender, voids without diff, skin has multiple wounds to hips and back of right leg and right foot, Dr. Montague was consulted for I&D, heidi lee, oriented to room layout and call system, call light in reach.
--- NOTE | 2021-01-05 18:57 | NUR ---
pt will be having surgery in the am, will keep npo after mid, pt a bit tearful because she is loosing a toe, poor appetite, no further changes this shift, call light in reach.
[2021-01-05 19:30] LABS: Vancomycin, Trough 9.8 ug/mL (5.0-10.0)
--- NOTE | 2021-01-06 04:26 | NUR ---
AAO. RESP UNLABORED. VSS. MEDICATED FOR PAIN WITH GOOD EFFECT. MEDS GIVEN. DSG TO RIGHT FOOT DRY AND INTACT. INSTRUCTED NOT TO BEAR WEIGHT ON RIGHT FOOT. SHE VERBALIZED UNDERSTANDING. AWARE OF NPO STATUS. CALL LIGHT WITHIN REACH. WILL CONTINUE TO MONITOR.
[2021-01-06 05:29] LABS: Hematocrit 30.6 % (33.0-51.0); Hemoglobin 10.6 g/dL (11.5-16.0); Mean Corpuscular HGB 30.3 pg (26.0-34.0); Mean Corpuscular HGB Conc 34.6 g/dL (31.5-36.5); Mean Corpuscular Volume 87 fL (80-100); Mean Platelet Volume 9.8 fL (9.1-12.4); Platelet Count 293 K/mm3 (150-400); RDW Coefficient Variation 14.3 % (11.7-14.2); RDW Standard Deviation 45.9 fL (35.1-46.3)
[2021-01-06 05:56] LABS: Alanine Aminotransfer (ALT/SGP 12 U/L (12-78); Albumin, Blood 2.2 g/dL (3.4-5.0); Albumin/Globulin Ratio 0.5 (0.8-1.8); Alk Phos 72 U/L (50-136); Anion Gap 7 mmol/L (6-16); Aspartate Aminotrans (AST/SGOT 15 U/L (12-37); Bilirubin, Total 0.5 mg/dL (0.1-1.0); Blood Urea Nitrogen 7 mg/dL (8-24); CO2, Blood 32 mmol/L (21-32); Calcium, Blood 8.4 mg/dL (8.5-10.1); Chloride, Blood 94 mmol/L (98-108); Creatinine, Blood 0.64 mg/dL (0.40-1.00); Globulin, Blood 4.4 g/dL (2.2-4.0); Glomerular Filtration Rate >60 (60-); Glucose, Blood 239 mg/dL (70-99); Potassium, Blood 2.8 mmol/L (3.5-5.5); Sodium, Blood 133 mmol/L (136-145)
[2021-01-06 05:59] LABS: Total Protein, Blood 6.6 g/dL (6.4-8.2)
--- NOTE | 2021-01-06 07:45 | NUR ---
pt sleeping hard, woke for v.s. and ready to take to surgery this am, she has been npo since midnight, a/ox3, pleasant and cooperative with care, follows commands well, denies pain, lungs are clear t/o, on r/a, resp even and unlabored, no cough noted, hrr, edema noted to right lower ext, has dressing the Dr. Sahu placed yesterday, ppp+1, cap refill <3sec, v.s. stable, afebrile, iv is power glide to devon site is clear and patent, btx4, abd flat soft nontender, voids without diff, skin has multiple wounds to b/l hips, right calf, right foot, and to face, heidi lee, call light in reach.
--- NOTE | 2021-01-06 07:45 | NUR ---
left for surgery via gurney.
--- NOTE | 2021-01-06 09:38 | NUR ---
01/06/21 0938 Shaji Alfredo PATIENT ON SCHUEDULED ANTIBIOTICS 0830 RIGHT LIP PROCEDURE 0843 LEFT HIP PROCEDURE 0851 RIGHT HIP PROCEDURE 1027 RIGHT FOOT PROCEDURE
[2021-01-06 18:03] LABS: Vancomycin, Trough 17.9 ug/mL (5.0-10.0)
--- NOTE | 2021-01-06 18:04 | NUR ---
pt was tearful when she came back from surgery, this evening is in much better spirits, v.s. have been stable, changed bandaid on lip, other dressings ok. call light in reach.
--- NOTE | 2021-01-07 05:11 | NUR ---
AAO. MEDICATED FOR PAIN LAST NIGHT. REQUESTS MORE PAIN MED. FENTANYL 50 MCG GIVEN THIS MORNING. PAIN RATED 8. DSG TO ROBBIE HIPS DRY. RT FOOT WITH DSG COVERED WITH JORY BANDAGE. CMS INTACT. VSS. CALL LIGHT WITHIN REACH. NO CHANGE IN STATUS NOTED.
[2021-01-07 05:16] LABS: Hematocrit 28.5 % (33.0-51.0); Hemoglobin 9.8 g/dL (11.5-16.0); Mean Corpuscular HGB Conc 34.4 g/dL (31.5-36.5); Mean Corpuscular Volume 87 fL (80-100); Mean Platelet Volume 10.3 fL (9.1-12.4); Platelet Count 256 K/mm3 (150-400); RDW Coefficient Variation 14.5 % (11.7-14.2); RDW Standard Deviation 46.4 fL (35.1-46.3); Red Blood Cell Count 3.27 M/mm3 (3.80-5.20); White Blood Cell Count 12.01 K/mm3 (4.00-11.30)
[2021-01-07 06:20] LABS: Alanine Aminotransfer (ALT/SGP 11 U/L (12-78); Albumin, Blood 2.2 g/dL (3.4-5.0); Albumin/Globulin Ratio 0.5 (0.8-1.8); Alk Phos 66 U/L (50-136); Anion Gap 8 mmol/L (6-16); Aspartate Aminotrans (AST/SGOT 12 U/L (12-37); Bilirubin, Total 0.3 mg/dL (0.1-1.0); Blood Urea Nitrogen 7 mg/dL (8-24); Bun/Creatinine Ratio 10.4 (12.0-20.0); CO2, Blood 30 mmol/L (21-32); Calcium, Blood 8.2 mg/dL (8.5-10.1); Chloride, Blood 96 mmol/L (98-108); Creatinine, Blood 0.67 mg/dL (0.40-1.00); Globulin, Blood 4.2 g/dL (2.2-4.0); Glomerular Filtration Rate >60 (60-); Glucose, Blood 218 mg/dL (70-99); Sodium, Blood 134 mmol/L (136-145); Total Protein, Blood 6.4 g/dL (6.4-8.2)
--- NOTE | 2021-01-07 17:52 | NUR ---
PT IS A/OX4, PLEASANT AND COOPERATIVE, THE PT HAS BEEN GETTING UP TO THE BSC UNASSITED STAND PIVOT ON THE LEFT FOOT AND NON WEIGHT BEARING ON THE RIGHT FOOT. DR. WALKER WAS IN TO CHANGE THE RIGHT FOOT DRESSING AFTER SEEING THE WOUND THE PT BECAME VERY EMOTIONAL AND ASKED TO SPEAK WITH SPIRITUAL CARE. DENAE FROM SPIRITUAL CARE CAME AND CONSOULED THE PT. THE PT WAS MEDICATED FOR PAIN T/O THE DAY. WET TO DRY DRESSING WERE APPLIED TO THE PTS HIP WOUNDS. THE PT APPEARS TO BE BREATHING EASILY ON RA. THE PTS WAS IN TO VISIT WITH HER THIS AFTERNOON. CALL LIGHT IN REACH. WILL CONTINUE TO MONITOR AND ASSESS FOR CHANGES
--- NOTE | 2021-01-07 22:03 | NUR ---
PT VOMITTED TWICE. ATIVAN PRN GIVEN WITH GOOD EFFECT. DENIES PAIN AT THIS TIME. WILL CONTINUE TO MONITOR.
--- NOTE | 2021-01-08 04:18 | NUR ---
PT HAD NO EPISODE OF VOMITTING AFTER DOSE OF ATIVAN PRN. TORADOL GIVEN WITH GOOD EFFECT. NO C/O OF NAUSEA. VSS. SLEPT WELL. RESP UNLABORED. DSGS TO ROBBIE HIPS AND FOOT DRY. CALL LIGHT WITHIN REACH.
[2021-01-08 06:48] LABS: Hematocrit 36.5 % (33.0-51.0); Hemoglobin 12.1 g/dL (11.5-16.0); Mean Corpuscular HGB 29.9 pg (26.0-34.0); Mean Corpuscular HGB Conc 33.2 g/dL (31.5-36.5); Mean Corpuscular Volume 90 fL (80-100); Mean Platelet Volume 9.5 fL (9.1-12.4); Platelet Count 282 K/mm3 (150-400); RDW Coefficient Variation 14.7 % (11.7-14.2); RDW Standard Deviation 48.4 fL (35.1-46.3); Red Blood Cell Count 4.05 M/mm3 (3.80-5.20); White Blood Cell Count 10.59 K/mm3 (4.00-11.30)
[2021-01-08 07:00] LABS: Alanine Aminotransfer (ALT/SGP 14 U/L (12-78); Albumin, Blood 2.4 g/dL (3.4-5.0); Albumin/Globulin Ratio 0.5 (0.8-1.8); Alk Phos 72 U/L (50-136); Anion Gap 6 mmol/L (6-16); Aspartate Aminotrans (AST/SGOT 15 U/L (12-37); Bilirubin, Total 0.5 mg/dL (0.1-1.0); Blood Urea Nitrogen 5 mg/dL (8-24); Bun/Creatinine Ratio 7.2 (12.0-20.0); CO2, Blood 28 mmol/L (21-32); Calcium, Blood 8.7 mg/dL (8.5-10.1); Chloride, Blood 101 mmol/L (98-108); Glomerular Filtration Rate >60 (60-); Glucose, Blood 121 mg/dL (70-99); Magnesium, Blood 1.7 mg/dL (1.6-2.4); Potassium, Blood 3.7 mmol/L (3.5-5.5); Sodium, Blood 135 mmol/L (136-145); Total Protein, Blood 7.4 g/dL (6.4-8.2)
[2021-01-08 07:07] LABS: Vancomycin, Trough 23.6 ug/mL (5.0-10.0)
--- NOTE | 2021-01-08 11:13 | NUR ---
HIP WOUNDS CLEANED AND CHANGED BILAT HIP DRESSINGS USEING CLEAN TECHNIQUE. PACKED EACH WITH MOIST GAUZE AND COVERED WITH MEFIX ADHESSIVE FOAM PAD. THE PT TOLERATED WELL
--- NOTE | 2021-01-08 17:20 | NUR ---
PT IS A/OX4, PLEASANT AND COOPERATIVE. THE PT CAN STAND PIVOT TO THE CHAIR AND THE BSC. PT REMINDED TO NOT BEAR WEIGHT ON HER RIGHT FOOT. TODAY THE PT HAD FREQUANT NAUSEA AND VOMITING MORE COMPARED TO YESTERDAY. THE PT WAS MEDICATED FOR N/V T/O THE DAY. THE PT WAS MEDICATED FOR PAIN X2 TODAY SO FAR. THE PT APPEARS TO BE BREATHING EASILY ON RA AT THIS TIME. THE PTS WAS IN TO VISIT. CALL LIGHT IN REACH. WILL CONTINUE TO MONITOR AND ASSESS FOR CHANGES
[2021-01-08 18:52] LABS: Vancomycin, Random 14.7 ug/mL
[2021-01-09] MEDS ORDERED: IBUP600 PO (13:27)
[2021-01-09] MEDS ORDERED: HUMALOG KW100 UNIT/1 SC (13:30)
[2021-01-09] MEDS ORDERED: PANT20 PO (13:31)
[2021-01-09] MEDS ORDERED: LINE600 PO (13:34)
[2021-01-09] MEDS ORDERED: METO5A PO (13:36)
[2021-01-09] MEDS ORDERED: Cran-Max500 MG PO (13:37)
--- NOTE | 2021-01-09 13:40 | NUR ---
Upon receiving an request for spiritual care from patient's RN Linda, I visit patient. Patient immediately shares about how she has pushed away the people she loves and how she is not coping well with the fears and anxiety connected to her DC today. Patient is very emotional at times (crying and speaking loudly then very softly) and is welcoming conversation then pulls away then engages again. She shares her stories of terrible tragedies and I highlight her ability to overcome. We discuss her fears and I provide anxiety containment.I encourage self-care, reinforce helpful attitudes and practices and provide therapeutic listening and gentle addictions counselor assistant. Patient responds well and shows signs of reduced stress.
--- NOTE | 2021-01-09 16:24 | NUR ---
PATIENT DISCHARGED TO HOME ACCOMPANIED BY A FRIEND. PATIENT VERBALIZED UNDERSTANDING OF D/C INSTRUCTIONS; WILL MAKE HER OWN F/U APPOINTMENT WITH DR. WALKER. [facility] WILL CALL PT TO MAKE F/U APPT THEY HAD NO AVAILABILITY UNTIL THE END . [facility] HAD NO APPT AVAILABILITY UNTIL 01/21; PROVIDER FTF DONE FOR HOME HEALTH TO DO DRESSING CHANGES UNTIL WOUND CLINIC CAN TAKE PATIENT. HIGH SLIDING SCALE SHEET GIVEN TO PATIENT. AMADOU POWERGLIDE IV REMOVED WITHOUT INCIDENT. HAS KNEE SCOOTER AND POST OP SHOE. OFF UNIT VIA W/C AT 1628. NO BELONGINGS LEFT BEHIND.
--- NOTE | 2021-01-11 12:40 | NUR ---
Received referral from nurse chronic care nurse (Gretta Pulido) on 01/10/2021. Patient was admitted to [facility] on 01/04/2021 due to cellulitis. Patient discharged 01/09/2021 with orders for home health and elected [facility]. Attempted to reach patient on 01/10/2021 at 0954. Unfortunately patient did not answer. Left voicemail asking patient to return this automobile and property underwriter's call. Second attempted to reach patient on 01/10/2021 at 1534. Unfortunately patient did not answer. Left voicemail asking patient to return this automobile and property underwriter's call. Third and final attempted to reach patient on 01/11/2021 at 1154. Unfortunately patient did not answer. Left voicemail asking patient to return this automobile and property underwriter's call. At this time, patient is unable to be reached/located by this automobile and property underwriter. As such no home health will be initiated due to this reason. No further interventions required. Shazia Schaefer Referral Liaison
--- NOTE | 2021-01-11 16:31 | NUR ---
Received return phone call from patient today- 01/11/2021 at 1513. Patient is agreeable to home health services through [facility]. Discussed homebound status definition with patient. Patient verbalized understanding. Discussed what home health is vs what it is not (in home caregivers/housekeeping). Patient verbalized understanding. Discussed the next steps in the process of an initial assessment to determine frequency of visits. Again patient verbalized understanding. Offered a chance for patient to ask questions regarding the above of which there were none. Gathered all supporting documentation for referral (face sheet, face to face, med list, H&P, discharge summary, and most recent PT assessment) and sent to [facility] for review. No further interventions required. Shazia Schaefer Referral Liaison
== END 2021-01-09 16:25 | disposition home health service (06) | DRG 853 ==
LOC: ER 14:47 → MEDS 19:59 → ERHOLD 19:59 → MEDS 01-05 12:21
PROVIDERS: Internal Medicine; Physician Assistant; Podiatrist Foot & Ankle Surgery; Surgery; ADMIT Internal Medicine
PROC: 0Y6M0ZD Detachment at Right Foot, Partial 4th Ray, Open Approach (ICD-10-PCS; principal; 2021-01-06 08:00)
PROC: 0Y6M0ZF Detachment at Right Foot, Partial 5th Ray, Open Approach (ICD-10-PCS; 2021-01-06 08:00)
PROC: 0JB90ZZ Excision of Buttock Subcutaneous Tissue and Fascia, Open Approach (ICD-10-PCS; 2021-01-06 08:00)
PROC: 0HB1XZZ Excision of Face Skin, External Approach (ICD-10-PCS; 2021-01-06 08:00)
DX: A41.02 Sepsis due to Methicillin resistant Staphylococcus aureus (principal); L89.614 Pressure ulcer of right heel, stage 4; A48.0 Gas gangrene; L03.115 Cellulitis of right lower limb; L02.611 Cutaneous abscess of right foot; E87.1 Hypo-osmolality and hyponatremia; Z68.43 Body mass index [BMI] 50.0-59.9, adult; E11.52 Type 2 diabetes mellitus with diabetic peripheral angiopathy with gangrene; L02.416 Cutaneous abscess of left lower limb; L02.415 Cutaneous abscess of right lower limb; L89.229 Pressure ulcer of left hip, unspecified stage; Z20.822 Contact with and (suspected) exposure to COVID-19; L89.219 Pressure ulcer of right hip, unspecified stage; A40.1 Sepsis due to streptococcus, group B; E87.6 Hypokalemia; R11.2 Nausea with vomiting, unspecified; A40.0 Sepsis due to streptococcus, group A; F12.10 Cannabis abuse, uncomplicated; E11.65 Type 2 diabetes mellitus with hyperglycemia; E11.621 Type 2 diabetes mellitus with foot ulcer; L97.519 Non-pressure chronic ulcer of other part of right foot with unspecified severity; E66.01 Morbid (severe) obesity due to excess calories; E03.9 Hypothyroidism, unspecified; Z91.018 Allergy to other foods; Z91.048 Other nonmedicinal substance allergy status; Z88.2 Allergy status to sulfonamides; Z86.14 Personal history of Methicillin resistant Staphylococcus aureus infection; Z90.49 Acquired absence of other specified parts of digestive tract; Z79.4 Long term (current) use of insulin; Z79.899 Other long term (current) drug therapy
CPT/HCPCS: 36415; 72193; 73630; 73700; 80048; 80053; 80202; 82947; 83036; 83605; 83735; 84443; 85025; 85027; 85651; 86140; 87040; 87070; 87075; 87076; 87077; 87147; 87185; 87186; 87205; 88305; 88311; 93925; 93970; 94760; 96365; 96366; 96367; 96372; 96375; 96376; 97110; 97116; 97162; 99284-25; A9270; C9113; G0008; J0696; J1100; J1650; J1815; J1885; J2060; J2250; J2270; J2405; J2543; J2550; J2704; J2765; J3010; J3370; J3480; J7030; J7050; Q9967; U0004

== ENCOUNTER 2021-06-07 14:20 | Emergency (ER) | payer OTHER ==
[~2021-06-07] VITALS: Ht 172.7 cm; Wt 145.2 kg
[~2021-06-07 14:20] MED LIST changes: +ALBU90OI INH; +Cran-Max500 MG PO; +HUMALOG KW100 UNIT/1 SC; +IBUP600 PO; +LINE600 PO
[2021-06-07 14:49] LABS: BASOPHILS ABSOLUTE AUTO 0.04 K/mm3 (0.00-0.23); BASOPHILS PERCENT AUTO 1 % (0-2); EOSINOPHILS ABSOLUTE AUTO 0.17 K/mm3 (0.00-0.68); EOSINOPHILS PERCENT AUTO 2 % (0-6); Hematocrit 40.1 % (33.0-51.0); Hemoglobin 13.5 g/dL (11.5-16.0); IMMATURE GRAN ABSOLUTE AUTO 0.02 K/mm3 (0.00-0.10); IMMATURE GRAN PERCENT AUTO 0 % (0-1); LYMPHOCYTES ABSOLUTE AUTO 1.96 K/mm3 (0.84-5.20); LYMPHOCYTES PERCENT AUTO 23 % (21-46); MONOCYTES ABSOLUTE AUTO 0.61 K/mm3 (0.16-1.47); MONOCYTES PERCENT AUTO 7 % (4-13); Mean Corpuscular HGB 30.1 pg (26.0-34.0); Mean Corpuscular HGB Conc 33.7 g/dL (31.5-36.5); Mean Corpuscular Volume 89 fL (80-100); Mean Platelet Volume 9.6 fL (9.1-12.4); NEUTROPHILS PERCENT AUTO 68 % (41-73); Platelet Count 268 K/mm3 (150-400); RDW Coefficient Variation 14.7 % (11.7-14.2); Red Blood Cell Count 4.49 M/mm3 (3.80-5.20)
[2021-06-07 15:28] LABS: Alanine Aminotransfer (ALT/SGP 21 U/L (12-78); Albumin, Blood 3.7 g/dL (3.4-5.0); Albumin/Globulin Ratio 0.8 (0.8-1.8); Alk Phos 92 U/L (50-136); Anion Gap 9 mmol/L (6-16); Aspartate Aminotrans (AST/SGOT 21 U/L (12-37); Bilirubin, Total 1.3 mg/dL (0.1-1.0); Blood Urea Nitrogen 30 mg/dL (8-24); Bun/Creatinine Ratio 39.6 (12.0-20.0); CO2, Blood 22 mmol/L (21-32); Calcium, Blood 9.3 mg/dL (8.5-10.1); Chloride, Blood 102 mmol/L (98-108); Creatinine, Blood 0.76 mg/dL (0.40-1.00); Globulin, Blood 4.4 g/dL (2.2-4.0); Glomerular Filtration Rate >60 (60-); Glucose, Blood 251 mg/dL (70-99); Potassium, Blood 4.2 mmol/L (3.5-5.5); Sodium, Blood 133 mmol/L (136-145); Total Protein, Blood 8.1 g/dL (6.4-8.2)
== END 2021-06-07 20:00 | disposition left against medical advice (07) ==
LOC: ER 14:20
PROVIDERS: Physician Assistant
DX: R53.1 Weakness (principal); Z53.21 Procedure and treatment not carried out due to patient leaving prior to being seen by health care provider
CPT/HCPCS: 36415; 71046; 80053; 83690; 83880; 84484; 84703; 85025; 93005; 93010; 99285-25

== ENCOUNTER 2021-06-23 14:27 | Observation (INO) | payer OTHER ==
[~2021-06-23] VITALS: Ht 172.7 cm; Wt 154.5 kg
[2021-06-23 15:26] LABS: BASOPHILS ABSOLUTE AUTO 0.01 K/mm3 (0.00-0.23); BASOPHILS PERCENT AUTO 0 % (0-2); EOSINOPHILS ABSOLUTE AUTO 0.18 K/mm3 (0.00-0.68); EOSINOPHILS PERCENT AUTO 2 % (0-6); Hematocrit 32.3 % (33.0-51.0); Hemoglobin 10.5 g/dL (11.5-16.0); IMMATURE GRAN ABSOLUTE AUTO 0.02 K/mm3 (0.00-0.10); IMMATURE GRAN PERCENT AUTO 0 % (0-1); LYMPHOCYTES ABSOLUTE AUTO 1.31 K/mm3 (0.84-5.20); LYMPHOCYTES PERCENT AUTO 14 % (21-46); MONOCYTES ABSOLUTE AUTO 0.52 K/mm3 (0.16-1.47); MONOCYTES PERCENT AUTO 5 % (4-13); Mean Corpuscular HGB 30.1 pg (26.0-34.0); Mean Corpuscular HGB Conc 32.5 g/dL (31.5-36.5); Mean Corpuscular Volume 93 fL (80-100); Mean Platelet Volume 10.2 fL (9.1-12.4); NEUTROPHILS ABSOLUTE AUTO 7.59 K/mm3 (1.96-9.15); NEUTROPHILS PERCENT AUTO 79 % (41-73); Platelet Count 195 K/mm3 (150-400); RDW Coefficient Variation 14.1 % (11.7-14.2); RDW Standard Deviation 48.1 fL (35.1-46.3); Red Blood Cell Count 3.49 M/mm3 (3.80-5.20); White Blood Cell Count 9.63 K/mm3 (4.00-11.30)
[2021-06-23] MEDS ORDERED: HYDHCL25 PO (15:30)
[2021-06-23] MEDS ORDERED: GLIP5ER PO (15:31)
[2021-06-23] MEDS ORDERED: Erythromycin250 MG PO (15:32)
[2021-06-23] MEDS ORDERED: LINE600 PO (15:33)
[2021-06-23 15:43] LABS: Alanine Aminotransfer (ALT/SGP 14 U/L (12-78); Albumin, Blood 2.9 g/dL (3.4-5.0); Albumin/Globulin Ratio 0.6 (0.8-1.8); Alk Phos 82 U/L (50-136); Anion Gap 7 mmol/L (6-16); Aspartate Aminotrans (AST/SGOT 8 U/L (12-37); Bilirubin, Total 0.6 mg/dL (0.1-1.0); Blood Urea Nitrogen 10 mg/dL (8-24); Bun/Creatinine Ratio 21.6 (12.0-20.0); CO2, Blood 25 mmol/L (21-32); Calcium, Blood 8.7 mg/dL (8.5-10.1); Chloride, Blood 104 mmol/L (98-108); Creatinine, Blood 0.46 mg/dL (0.40-1.00); Globulin, Blood 4.6 g/dL (2.2-4.0); Glomerular Filtration Rate >60 (60-); Glucose, Blood 245 mg/dL (70-99); Potassium, Blood 4.1 mmol/L (3.5-5.5); Sodium, Blood 136 mmol/L (136-145); Total Protein, Blood 7.5 g/dL (6.4-8.2)
[2021-06-23] MEDS ORDERED: INSULANPEN SC (19:42)
[2021-06-24 04:43] LABS: Hematocrit 33.5 % (33.0-51.0); Hemoglobin 11.3 g/dL (11.5-16.0); Mean Corpuscular HGB Conc 33.7 g/dL (31.5-36.5); Mean Corpuscular Volume 89 fL (80-100); Mean Platelet Volume 10.3 fL (9.1-12.4); Platelet Count 268 K/mm3 (150-400); RDW Coefficient Variation 13.7 % (11.7-14.2); Red Blood Cell Count 3.77 M/mm3 (3.80-5.20); White Blood Cell Count 17.41 K/mm3 (4.00-11.30)
--- NOTE | 2021-06-24 06:33 | NUR ---
SHIFT SUMMARY PATIENT ALERT AND ORIENTED. SHORTLY AFTER ARRIVING IN HER ROOM, THE PATIENT BEGAN HAVING INTRACTABLE NAUSEA AND VOMITING. PATIENT STATED THE VOMITING IS FROM HAVING RECENTLY SMOKED MARIJUANA FOR CHRONIC BACK PAIN AND THAT SHE IS ALLERGIC. PATIENT MEDICATED FOR NAUSEA PER EMAR. PATIENT HAS SCATTERED SORES ON HER BODY, AND SWELLING OF THE LEFT SIDE OF HER FACE. BED IN LOWEST POSITION WITH WHEELS LOCKED. CALL LIGHT WITHIN REACH. REPORT GIVEN TO ONCOMING RN.
== END 2021-06-24 08:53 | disposition left against medical advice (07) ==
LOC: ER 14:27 → MEDS 14:28
PROVIDERS: Nurse Practitioner Acute Care; Physician Assistant; ADMIT Internal Medicine
DX: L03.211 Cellulitis of face (principal); E11.65 Type 2 diabetes mellitus with hyperglycemia; E66.01 Morbid (severe) obesity due to excess calories; S21.001A Unspecified open wound of right breast, initial encounter; S31.829A Unspecified open wound of left buttock, initial encounter; G47.33 Obstructive sleep apnea (adult) (pediatric); J45.20 Mild intermittent asthma, uncomplicated; F41.8 Other specified anxiety disorders; K02.9 Dental caries, unspecified; E11.43 Type 2 diabetes mellitus with diabetic autonomic (poly)neuropathy; K31.84 Gastroparesis; F17.210 Nicotine dependence, cigarettes, uncomplicated; Z79.4 Long term (current) use of insulin; Z88.2 Allergy status to sulfonamides; Z91.018 Allergy to other foods; Z91.048 Other nonmedicinal substance allergy status; Z86.14 Personal history of Methicillin resistant Staphylococcus aureus infection; Z53.29 Procedure and treatment not carried out because of patient's decision for other reasons; Z89.429 Acquired absence of other toe(s), unspecified side; Z68.43 Body mass index [BMI] 50.0-59.9, adult
CPT/HCPCS: 36415; 70487; 80053; 82947; 83605; 85025; 85027; 87040; 93005; 93010; 96372; 96374; 96375; 96376; 99285-25; A9270; C1751; G0378; J0690; J1650; J1815; J2405; J2550; J2765; J3370; J7030; J7060; Q9967

== ENCOUNTER 2021-08-13 15:45 | Emergency (ER) | payer OTHER ==
[~2021-08-13] VITALS: Ht 172.7 cm; Wt 146.5 kg
[~2021-08-13 15:45] MED LIST changes: +Erythromycin250 MG PO; +HYDHCL25 PO
[2021-08-13 17:27] LABS: BASOPHILS ABSOLUTE AUTO 0.03 K/mm3 (0.00-0.23); BASOPHILS PERCENT AUTO 0 % (0-2); EOSINOPHILS ABSOLUTE AUTO 0.01 K/mm3 (0.00-0.68); EOSINOPHILS PERCENT AUTO 0 % (0-6); Hematocrit 36.6 % (33.0-51.0); Hemoglobin 12.9 g/dL (11.5-16.0); IMMATURE GRAN ABSOLUTE AUTO 0.12 K/mm3 (0.00-0.10); IMMATURE GRAN PERCENT AUTO 1 % (0-1); LYMPHOCYTES ABSOLUTE AUTO 1.78 K/mm3 (0.84-5.20); LYMPHOCYTES PERCENT AUTO 10 % (21-46); MONOCYTES ABSOLUTE AUTO 0.98 K/mm3 (0.16-1.47); MONOCYTES PERCENT AUTO 6 % (4-13); Mean Corpuscular HGB 29.3 pg (26.0-34.0); Mean Corpuscular HGB Conc 35.2 g/dL (31.5-36.5); Mean Corpuscular Volume 83 fL (80-100); Mean Platelet Volume 9.3 fL (9.1-12.4); NEUTROPHILS ABSOLUTE AUTO 15.05 K/mm3 (1.96-9.15); NEUTROPHILS PERCENT AUTO 84 % (41-73); Platelet Count 546 K/mm3 (150-400); RDW Coefficient Variation 13.7 % (11.7-14.2); RDW Standard Deviation 41.7 fL (35.1-46.3); Red Blood Cell Count 4.41 M/mm3 (3.80-5.20); White Blood Cell Count 17.97 K/mm3 (4.00-11.30)
[2021-08-13 17:43] LABS: Albumin, Blood 3.6 g/dL (3.4-5.0); Albumin/Globulin Ratio 0.6 (0.8-1.8); Bilirubin, Total 1.6 mg/dL (0.1-1.0); Bun/Creatinine Ratio 24.5 (12.0-20.0); Calcium, Blood 11.2 mg/dL (8.5-10.1); Creatinine, Blood 1.02 mg/dL (0.40-1.00); Globulin, Blood 5.6 g/dL (2.2-4.0); Magnesium, Blood 1.6 mg/dL (1.6-2.4); Potassium, Blood 4.1 mmol/L (3.5-5.5); Total Protein, Blood 9.2 g/dL (6.4-8.2)
== END 2021-08-13 19:33 | disposition left against medical advice (07) ==
LOC: ER 15:45
PROVIDERS: Physician Assistant
DX: R06.02 Shortness of breath (principal); Z53.21 Procedure and treatment not carried out due to patient leaving prior to being seen by health care provider
CPT/HCPCS: 36415; 80053; 83735; 84703; 85025; J2405

== ENCOUNTER 2021-08-18 14:21 | Emergency (ER) | payer OTHER ==
[~2021-08-18] VITALS: Ht 172.7 cm; Wt 140.6 kg
[2021-08-18] MEDS ORDERED: CLEOCIN T60 G1 TOP (14:31)
[2021-08-18 14:55] LABS: BASOPHILS ABSOLUTE AUTO 0.06 K/mm3 (0.00-0.23); BASOPHILS PERCENT AUTO 0 % (0-2); EOSINOPHILS PERCENT AUTO 3 % (0-6); Hematocrit 34.7 % (33.0-51.0); Hemoglobin 11.7 g/dL (11.5-16.0); IMMATURE GRAN ABSOLUTE AUTO 0.09 K/mm3 (0.00-0.10); IMMATURE GRAN PERCENT AUTO 1 % (0-1); LYMPHOCYTES ABSOLUTE AUTO 2.21 K/mm3 (0.84-5.20); LYMPHOCYTES PERCENT AUTO 11 % (21-46); MONOCYTES ABSOLUTE AUTO 0.95 K/mm3 (0.16-1.47); MONOCYTES PERCENT AUTO 5 % (4-13); Mean Corpuscular HGB 29.6 pg (26.0-34.0); Mean Corpuscular HGB Conc 33.7 g/dL (31.5-36.5); Mean Corpuscular Volume 88 fL (80-100); Mean Platelet Volume 9.7 fL (9.1-12.4); NEUTROPHILS ABSOLUTE AUTO 15.95 K/mm3 (1.96-9.15); NEUTROPHILS PERCENT AUTO 81 % (41-73); Platelet Count 387 K/mm3 (150-400); RDW Coefficient Variation 14.3 % (11.7-14.2); RDW Standard Deviation 45.1 fL (35.1-46.3); Red Blood Cell Count 3.95 M/mm3 (3.80-5.20); White Blood Cell Count 19.76 K/mm3 (4.00-11.30)
[2021-08-18 15:58] LABS: Albumin, Blood 2.9 g/dL (3.4-5.0); Albumin/Globulin Ratio 0.6 (0.8-1.8); Bilirubin, Total 0.4 mg/dL (0.1-1.0); Calcium, Blood 8.9 mg/dL (8.5-10.1); Creatinine, Blood 0.73 mg/dL (0.40-1.00); Potassium, Blood 3.8 mmol/L (3.5-5.5); Total Protein, Blood 7.9 g/dL (6.4-8.2)
[2021-08-18] MEDS ORDERED: INSULIN GL100 UNIT/3 SC (16:57)
[2021-08-18] MEDS ORDERED: Zyvox600 MG PO (16:57)
== END 2021-08-18 17:38 | disposition home or self-care (01) ==
LOC: ER 14:21
PROVIDERS: Physician Assistant
DX: L03.312 Cellulitis of back [any part except buttock and flank] (principal); L03.317 Cellulitis of buttock; L02.212 Cutaneous abscess of back [any part, except buttock and flank]; L02.31 Cutaneous abscess of buttock; B95.62 Methicillin resistant Staphylococcus aureus infection as the cause of diseases classified elsewhere; E11.65 Type 2 diabetes mellitus with hyperglycemia; Z79.4 Long term (current) use of insulin; Z79.899 Other long term (current) drug therapy
CPT/HCPCS: 80053; 82947; 85025; A9270; J1815; J7030

== ENCOUNTER → 2021-10-18 | Outpatient (CLI) | payer OTHER ==
[~2021-10-18] MED LIST changes: +CLEOCIN T60 G1 TOP; +INSULIN GL100 UNIT/3 SC; +Zyvox600 MG PO
[2021-10-18 14:29] LABS: BASOPHILS ABSOLUTE AUTO 0.02 K/mm3 (0.00-0.23); BASOPHILS PERCENT AUTO 0 % (0-2); EOSINOPHILS ABSOLUTE AUTO 0.22 K/mm3 (0.00-0.68); EOSINOPHILS PERCENT AUTO 3 % (0-6); Hematocrit 34.1 % (33.0-51.0); Hemoglobin 11.4 g/dL (11.5-16.0); IMMATURE GRAN ABSOLUTE AUTO 0.03 K/mm3 (0.00-0.10); IMMATURE GRAN PERCENT AUTO 0 % (0-1); LYMPHOCYTES ABSOLUTE AUTO 1.35 K/mm3 (0.84-5.20); LYMPHOCYTES PERCENT AUTO 16 % (21-46); MONOCYTES ABSOLUTE AUTO 0.55 K/mm3 (0.16-1.47); MONOCYTES PERCENT AUTO 7 % (4-13); Mean Corpuscular HGB 29.7 pg (26.0-34.0); Mean Corpuscular HGB Conc 33.4 g/dL (31.5-36.5); Mean Corpuscular Volume 89 fL (80-100); Mean Platelet Volume 10.4 fL (9.1-12.4); NEUTROPHILS ABSOLUTE AUTO 6.24 K/mm3 (1.96-9.15); NEUTROPHILS PERCENT AUTO 74 % (41-73); Platelet Count 223 K/mm3 (150-400); RDW Coefficient Variation 16.4 % (11.7-14.2); RDW Standard Deviation 52.6 fL (35.1-46.3); Red Blood Cell Count 3.84 M/mm3 (3.80-5.20); White Blood Cell Count 8.41 K/mm3 (4.00-11.30)
[2021-10-18 15:09] LABS: Albumin, Blood 3.5 g/dL (3.4-5.0); Albumin/Globulin Ratio 0.9 (0.8-1.8); Bilirubin, Total 1.3 mg/dL (0.1-1.0); Bun/Creatinine Ratio 25.6 (12.0-20.0); Creatinine, Blood 0.86 mg/dL (0.40-1.00); Globulin, Blood 3.8 g/dL (2.2-4.0); Potassium, Blood 4.2 mmol/L (3.5-5.5); Total Protein, Blood 7.3 g/dL (6.4-8.2)
== END | disposition home or self-care (01) ==
LOC: LAB SHORT 13:33 → LAB 13:33
PROVIDERS: Physician Assistant
DX: R55 Syncope and collapse (principal)
CPT/HCPCS: 80053; 85025

== ENCOUNTER 2021-12-22 12:16 | Emergency (ER) | payer OTHER ==
[~2021-12-22] VITALS: Ht 172.7 cm; Wt 147.4 kg
[~2021-12-22 12:16] MED LIST changes: +[UNRECOGNIZED DRUG - CODE] PO
[2021-12-22 13:44] LABS: BASOPHILS ABSOLUTE AUTO 0.02 K/mm3 (0.00-0.23); BASOPHILS PERCENT AUTO 0 % (0-2); EOSINOPHILS ABSOLUTE AUTO 0.21 K/mm3 (0.00-0.68); EOSINOPHILS PERCENT AUTO 2 % (0-6); Hematocrit 32.7 % (33.0-51.0); Hemoglobin 11.1 g/dL (11.5-16.0); IMMATURE GRAN ABSOLUTE AUTO 0.05 K/mm3 (0.00-0.10); IMMATURE GRAN PERCENT AUTO 1 % (0-1); LYMPHOCYTES ABSOLUTE AUTO 1.55 K/mm3 (0.84-5.20); LYMPHOCYTES PERCENT AUTO 18 % (21-46); MONOCYTES ABSOLUTE AUTO 0.59 K/mm3 (0.16-1.47); MONOCYTES PERCENT AUTO 7 % (4-13); Mean Corpuscular HGB 31.4 pg (26.0-34.0); Mean Corpuscular HGB Conc 33.9 g/dL (31.5-36.5); Mean Corpuscular Volume 92 fL (80-100); Mean Platelet Volume 9.4 fL (9.1-12.4); NEUTROPHILS ABSOLUTE AUTO 6.27 K/mm3 (1.96-9.15); NEUTROPHILS PERCENT AUTO 72 % (41-73); Platelet Count 239 K/mm3 (150-400); RDW Standard Deviation 47.3 fL (35.1-46.3); Red Blood Cell Count 3.54 M/mm3 (3.80-5.20); White Blood Cell Count 8.69 K/mm3 (4.00-11.30)
[2021-12-22 13:49] LABS: Albumin, Blood 3.4 g/dL (3.4-5.0); Albumin/Globulin Ratio 0.8 (0.8-1.8); Bilirubin, Total 1.2 mg/dL (0.1-1.0); Bun/Creatinine Ratio 28.2 (12.0-20.0); C-REACTIVE PROTEIN, EXT RANGE 2.85 mg/dL (0.000-0.300); Calcium, Blood 8.8 mg/dL (8.5-10.1); Creatinine, Blood 0.71 mg/dL (0.40-1.00); Total Protein, Blood 7.4 g/dL (6.4-8.2)
[2021-12-22] MEDS ORDERED: BASAGLAR K100 UNIT/6 SC (15:32)
[2021-12-22] MEDS ORDERED: ONDA4ODT MM (15:34)
[2021-12-22] MEDS ORDERED: CLIN300 PO (15:34)
== END 2021-12-22 15:50 | disposition home or self-care (01) ==
LOC: ER 12:16
PROVIDERS: Student in an Organized Health Care Education/Training Program
DX: L03.115 Cellulitis of right lower limb (principal); E11.621 Type 2 diabetes mellitus with foot ulcer; L97.519 Non-pressure chronic ulcer of other part of right foot with unspecified severity; E11.43 Type 2 diabetes mellitus with diabetic autonomic (poly)neuropathy; K31.84 Gastroparesis; J45.909 Unspecified asthma, uncomplicated; G47.33 Obstructive sleep apnea (adult) (pediatric); Z91.018 Allergy to other foods; Z91.048 Other nonmedicinal substance allergy status; Z79.899 Other long term (current) drug therapy
CPT/HCPCS: 36415; 73630; 80053; 83605; 85025; 85651; 86140; J1885

== ENCOUNTER 2021-12-30 12:47 | Emergency (ER) | payer OTHER ==
[~2021-12-30] VITALS: Ht 172.7 cm; Wt 149.7 kg
[~2021-12-30 12:47] MED LIST changes: +BASAGLAR K100 UNIT/6 SC
[2021-12-30 13:40] LABS: BASOPHILS ABSOLUTE AUTO 0.03 K/mm3 (0.00-0.23); BASOPHILS PERCENT AUTO 0 % (0-2); EOSINOPHILS ABSOLUTE AUTO 0.24 K/mm3 (0.00-0.68); EOSINOPHILS PERCENT AUTO 3 % (0-6); Hematocrit 36.3 % (33.0-51.0); IMMATURE GRAN ABSOLUTE AUTO 0.01 K/mm3 (0.00-0.10); IMMATURE GRAN PERCENT AUTO 0 % (0-1); LYMPHOCYTES ABSOLUTE AUTO 1.26 K/mm3 (0.84-5.20); LYMPHOCYTES PERCENT AUTO 17 % (21-46); MONOCYTES ABSOLUTE AUTO 0.72 K/mm3 (0.16-1.47); MONOCYTES PERCENT AUTO 10 % (4-13); Mean Corpuscular HGB 30.7 pg (26.0-34.0); Mean Corpuscular HGB Conc 33.1 g/dL (31.5-36.5); Mean Corpuscular Volume 93 fL (80-100); NEUTROPHILS PERCENT AUTO 70 % (41-73); Platelet Count 262 K/mm3 (150-400); RDW Coefficient Variation 14.2 % (11.7-14.2); RDW Standard Deviation 48.5 fL (35.1-46.3); Red Blood Cell Count 3.91 M/mm3 (3.80-5.20); White Blood Cell Count 7.46 K/mm3 (4.00-11.30)
[2021-12-30 13:54] LABS: Albumin, Blood 3.2 g/dL (3.4-5.0); Albumin/Globulin Ratio 0.7 (0.8-1.8); Bilirubin, Total 1.1 mg/dL (0.1-1.0); Calcium, Blood 8.6 mg/dL (8.5-10.1); Creatinine, Blood 0.55 mg/dL (0.40-1.00); Globulin, Blood 4.4 g/dL (2.2-4.0); Potassium, Blood 4.3 mmol/L (3.5-5.5); Total Protein, Blood 7.6 g/dL (6.4-8.2)
[2021-12-30] MEDS ORDERED: LEVEMIR FL100 UNIT/2 (15:41)
[2021-12-30] MEDS ORDERED: Ultram50 MG PO (17:09)
[2021-12-30] MEDS ORDERED: Bactrim Ds Tab1 EACH PO (17:09)
== END 2021-12-30 17:20 | disposition home or self-care (01) ==
LOC: ER 12:47
PROVIDERS: Physician Assistant
DX: E11.621 Type 2 diabetes mellitus with foot ulcer (principal); L97.519 Non-pressure chronic ulcer of other part of right foot with unspecified severity; Z91.09 Other allergy status, other than to drugs and biological substances; Z91.018 Allergy to other foods; Z79.4 Long term (current) use of insulin; Z79.1 Long term (current) use of non-steroidal anti-inflammatories (NSAID); Z79.899 Other long term (current) drug therapy
CPT/HCPCS: 36415; 73660; 80053; 85025

== ENCOUNTER 2022-01-05 10:05 | Inpatient (IN) | payer OTHER ==
[~2022-01-05] VITALS: Ht 172.7 cm; Wt 154.0 kg
[~2022-01-05 10:05] MED LIST changes: +INSULIN GL100 UNIT/4 SC; +Ultram50 MG PO
[2022-01-05 11:20] LABS: BASOPHILS ABSOLUTE AUTO 0.03 K/mm3 (0.00-0.23); BASOPHILS PERCENT AUTO 0 % (0-2); EOSINOPHILS ABSOLUTE AUTO 0.25 K/mm3 (0.00-0.68); EOSINOPHILS PERCENT AUTO 3 % (0-6); Hematocrit 29.2 % (33.0-51.0); Hemoglobin 9.7 g/dL (11.5-16.0); IMMATURE GRAN ABSOLUTE AUTO 0.09 K/mm3 (0.00-0.10); IMMATURE GRAN PERCENT AUTO 1 % (0-1); LYMPHOCYTES ABSOLUTE AUTO 1.35 K/mm3 (0.84-5.20); LYMPHOCYTES PERCENT AUTO 16 % (21-46); MONOCYTES ABSOLUTE AUTO 0.77 K/mm3 (0.16-1.47); MONOCYTES PERCENT AUTO 9 % (4-13); Mean Corpuscular HGB 30.7 pg (26.0-34.0); Mean Corpuscular HGB Conc 33.2 g/dL (31.5-36.5); Mean Corpuscular Volume 92 fL (80-100); Mean Platelet Volume 9.7 fL (9.1-12.4); NEUTROPHILS ABSOLUTE AUTO 5.74 K/mm3 (1.96-9.15); NEUTROPHILS PERCENT AUTO 70 % (41-73); Platelet Count 253 K/mm3 (150-400); RDW Coefficient Variation 14.4 % (11.7-14.2); Red Blood Cell Count 3.16 M/mm3 (3.80-5.20); White Blood Cell Count 8.23 K/mm3 (4.00-11.30)
[2022-01-05 11:38] LABS: Albumin, Blood 2.7 g/dL (3.4-5.0); Albumin/Globulin Ratio 0.5 (0.8-1.8); Bilirubin, Total 0.4 mg/dL (0.1-1.0); Bun/Creatinine Ratio 36.6 (12.0-20.0); Calcium, Blood 8.8 mg/dL (8.5-10.1); Creatinine, Blood 0.66 mg/dL (0.40-1.00); Potassium, Blood 4.7 mmol/L (3.5-5.5); Total Protein, Blood 7.7 g/dL (6.4-8.2)
--- NOTE | 2022-01-05 20:00 | NUR ---
SHIFT SUMMARY- PT ALERT AND ORIENTED, IN THE BED CALL LIGHT IN REACH, CALS APPROPRIATELY. HAD A BM ON ARRIVAL. PT HAS IV FENTANYL ORDERED FOR PAIN. PT C/O LOW BG AFTER ARRIVING OF 67. CALLED DR BEBETO OGDENED ORDER TO CHANGE NS TO D5 1/2NS AT 100ML/HR. THIS WAS STARTED AFTER 50ML HAD INFUSED BG WAS RECHECKED AND LEVEL WAS 80. PODIATRY CAME TO SEE THE PT AND PLANS TO TAKE THE PT TO SURGERY TOMORROW EVENING PT TO SWITCH TO CLEAR LIQUIDS TONIGHT AT 1200 AND NPO AT 0600 TOMORROW. PT GOT ADA DIET FOR DINNER. Q6 BG CHECKS ORDERED. PODIATRY DRESSED THE WOUND AFTER PICTURES WERE TAKEN. UNABLE TO PRINT PICTURES, PASSED ON TO NIGHT RN IN REPORT. 1800 ABX WILL BE STARTED BY NIGHT RN. IV ACCESS LOST AT SHIFT CHANGE. NIGHT RN AWARE ATTEMPTING TO REGAIN ACCESS.
[2022-01-06 05:32] LABS: Hematocrit 28.4 % (33.0-51.0); Hemoglobin 9.2 g/dL (11.5-16.0); Mean Corpuscular HGB 29.8 pg (26.0-34.0); Mean Corpuscular HGB Conc 32.4 g/dL (31.5-36.5); Mean Corpuscular Volume 92 fL (80-100); Mean Platelet Volume 9.8 fL (9.1-12.4); Platelet Count 263 K/mm3 (150-400); RDW Coefficient Variation 14.3 % (11.7-14.2); RDW Standard Deviation 47.7 fL (35.1-46.3); Red Blood Cell Count 3.09 M/mm3 (3.80-5.20); White Blood Cell Count 7.75 K/mm3 (4.00-11.30)
[2022-01-06 06:01] LABS: Bun/Creatinine Ratio 27.9 (12.0-20.0); Calcium, Blood 8.7 mg/dL (8.5-10.1); Creatinine, Blood 0.57 mg/dL (0.40-1.00); Potassium, Blood 4.1 mmol/L (3.5-5.5)
--- NOTE | 2022-01-06 06:13 | NUR ---
SHIFT SUMMARY: This shift pt had c/o pain in her R great toe. Utilized PRN perocet x2 for pain control. Her foot has strong pedal pulses, she denies numbness/tingling. overnight she had multiple IV's infiltrate. D5 1/2NS infused overnight, abx given. Pt missed her 1800 dose due to an infiltrated IV and access was unable to be obtained until around 2129. Pharamcy stated to skip 1800 dose and give 0000 dose early. Pt has been NPO for sx today on her great toe. BS has been stable this shift.
--- NOTE | 2022-01-06 12:24 | NUR ---
PT BEEN HERE BY JOSETTE. History, Chart, Medications and Allergies reviewed before start of procedure.Lungs clear T/O to Auscultation. Patient confirms NPO status and agrees with scheduled surgery. Pre-Op teaching done. Pt verbalizes understanding.
[2022-01-06 15:29] LABS: Vancomycin, Trough 23.6 ug/mL (5.0-10.0)
--- NOTE | 2022-01-06 16:13 | NUR ---
Spiritual care consult received and processed. The consult stated that patient requested and visit from spiritual care. I review my prior notes for when I visited pt and then visited patient in person. I asked patient if she would like a visit from spiritual care. Patient declined. I asked if that declination is for today only or other times as well. She stated that it is "to be determined" for her decision if a visit will be welcomed tomorrow. I tell her that I will check back tomorrow.
--- NOTE | 2022-01-06 18:42 | NUR ---
SHIFT SUMMARY PT WENT FOR SURGICAL INTERVENTION TODAY OF AMPUTATION OF R GREAT TOE. PT RETURNED FROM POST OP AT APPROX 1415. PT WAS AxOx4. PT HAS STRUGGLED WITH NAUSEA/VOMITING AND PAIN SINCE RETURNING TO ROOM. MEDICATED PER EMAR BEFORE AND AFTER CONSULTING WITH PHYSICIAN AND ADJUSTING MEDICATIONS. PT REPORTS FEELING VERY EMOTIONAL. SHE HAS RECENTLY EXPERIENCED LOSS OF HER PARENTS AND SHE IS HAVING DIFFICULTY COPING WITH THEM NOT BEING HER FOR SUPPORT. PT'S WAS IN FOR BRIEF VISIT. THERAPEUTIC COMMUNICATION PROVIDED ALONG WITH PHARMACEUTICAL INTERVENTIONS. PT IS CURRENTLY LYING IN BED WITH AFFECTED LIMB ELEVATED. PT REPORTS FEELING 8-10 OUT OF 10 PAIN CONSISTENTLY SINCE ARRIVING BACK FROM OR. PT IS ALSO HAVING A HARD TIME EATING R/T STOMACH UPSET. POST OP VITALS IN PROGRESS. CALL LIGHT IN REACH. PT DENIES ANY FURTHER NEEDS AT THIS TIME.
--- NOTE | 2022-01-07 04:26 | NUR ---
SHIFT SUMMARY: PT A/Ox4 and call light appropriate. Pt had c/o severe pain during the night. ordered IV fentanyl for breakthrough pain, she recieved this x1 50mg. Her powerglide infiltrated overnight, production underwriter let charge nurse know as pt needs access for abx. Charge informed production underwriter than per the warehouse specialist there was no staff overnight trained/able to put a new one in. Owner Oral Surgeon updated MD and pharmacy. Pt had c/o pain inbetween Jermyn doses, since there was no longer IV access paged for other pain meds. MD adjusted Tramadol to be given Q4 instead of Q6. He also ordered oral zofran. Patient at the beginning of the shift had been very nauseas and having emesis but had already zofran and MD enrico ordred phenegran- this was then given. Since iv access was gone later in the shift pt had 1 dose of oral zofran. Pt denies numbness/tingling in her RLE. No SOB, dizziness.
[2022-01-07 05:15] LABS: BASOPHILS ABSOLUTE AUTO 0.02 K/mm3 (0.00-0.23); BASOPHILS PERCENT AUTO 0 % (0-2); EOSINOPHILS ABSOLUTE AUTO 0.11 K/mm3 (0.00-0.68); EOSINOPHILS PERCENT AUTO 1 % (0-6); Hematocrit 27.6 % (33.0-51.0); Hemoglobin 9.3 g/dL (11.5-16.0); IMMATURE GRAN ABSOLUTE AUTO 0.07 K/mm3 (0.00-0.10); IMMATURE GRAN PERCENT AUTO 1 % (0-1); LYMPHOCYTES ABSOLUTE AUTO 1.36 K/mm3 (0.84-5.20); LYMPHOCYTES PERCENT AUTO 15 % (21-46); MONOCYTES ABSOLUTE AUTO 0.79 K/mm3 (0.16-1.47); MONOCYTES PERCENT AUTO 9 % (4-13); Mean Corpuscular HGB 30.2 pg (26.0-34.0); Mean Corpuscular HGB Conc 33.7 g/dL (31.5-36.5); Mean Corpuscular Volume 90 fL (80-100); Mean Platelet Volume 9.1 fL (9.1-12.4); NEUTROPHILS PERCENT AUTO 74 % (41-73); Platelet Count 276 K/mm3 (150-400); RDW Coefficient Variation 14.1 % (11.7-14.2); RDW Standard Deviation 45.6 fL (35.1-46.3); Red Blood Cell Count 3.08 M/mm3 (3.80-5.20); White Blood Cell Count 9.05 K/mm3 (4.00-11.30)
--- NOTE | 2022-01-07 14:29 | NUR ---
Spiritual care visit conducted. Pt declines and states that she just needs to sleep. I tell her I will try again tomorrow (schedule permitting) and she affirms the attempt will be appreciated.
--- NOTE | 2022-01-07 15:00 | NUR ---
01/07/22 1500 Monet Rojas VERIFICATIONS: EDIT CHART.
--- NOTE | 2022-01-07 17:28 | NUR ---
SHIFT SUMMARY: PATIENT ALERT AND ORIENTED X4. POWERGLIDE WAS PLACED IN PT'S RIGHT UPPER ARM AND HAS BEEN USED FOR ANTIBITOICS. DUE TO THE POWERGLIDE GOING BAD THE NIGHT PRIOR, THE PT WAS NOT RECEIVING HER DOSES OF IV ANTIBIOTICS. PHARMACY WAS CALLED AND CHANGED THE TIME THE ANTIBIOTICS WERE TO BE GIVEN. PT C/O PAIN IN HER RIGHT LOWER EXTREMITIES. PT WAS GIVEN A DOSE OF FENTANYL WHICH SHE STATED HELPED WITH HER PAIN. PT HAS NOT COMPLAINED OF NAUSEA/VOMITING ANY TIME THROUGHOUT THE SHIFT. PT APPEARED UPSET AT VARIOUS TIMES OF THIS SHIFT BUT APPEARED TO FEEL BETTER WHEN SHE HAD VISITORS IN HER ROOM. CALL LIGHT IN REACH. BED IN LOWEST POSITION. WILL CONTINUE TO MONITOR UNTIL END OF SHIFT.
--- NOTE | 2022-01-08 05:10 | NUR ---
SHIFT SUMMARY NOC PT A/OX4. PT AMBULATED INDEPENTLY IN ROOM WITH SBA AND FWW. PT IS CONT OF BOTH URINE/BM. PT REPORTED PN OF 8/10 IN RIGHT FT. PT MEDICATED PER EMAR AND PN DROPPED TO 5/10. PT IS PLANNING ON D/C HOME ON 01/08/22. PT PG IN LAZARO IS PATENT, DRAWS BLOOD, AND IS INFUSING NS TKO @25MLS/HR. PT STILL ON HEAVY ABX REGIMENT FOR INFECTION IN RIGHT FT. PT IS CURRENTLY RESTING WITH BED RAILS UP, BED IN LOWEST POSITION, AND CALL LIGHT WITHIN REACH.
--- NOTE | 2022-01-08 09:22 | NUR ---
PT STATES SHE HAS VERY HIGH ANXIETY AT THIS TIME. FAXED AN ORDER FOR HER ANTI ANXIETY MEDICATION. PT HAS ALSO HAD NAUSEA/VOMITING FOR THE PAST 2 HOURS ALONG WITH "SHOOTING PAIN" IN HER RIGHT FOOT. I DOSED HER WITH FENTANYL AND ZOFRAN TO HELP WITH THE PAIN AND NAUSEA. PT HAS TAKEN 2 SHOWERS TO HELP "MANAGE THE ANXIETY." WILL START HER ANTIBIOTIC ONCE OUT OF SHOWER.
--- NOTE | 2022-01-08 13:00 | NUR ---
Spiritual care visit conducted. Pt at first tells me that she does not want a visit then starts to become emotional and asks me to come in to the . She immediately tells me about her addiction to Marijuana and how it has been 4 days since she last has used and her nerves and emotions are intense. She then talks about the recent of her mother, her eviction from her home, her family unit complications and her on-going medical issues. I normalize her feelings and struggles, reinforce helpful attitudes and practices and provide therapeutic listening, gentle peer financial counselor and grief support. Pt responds well and shows signs of an increase in peace. I will continue to remain available to pt and family.
[2022-01-08] MEDS ORDERED: Atarax10 MG PO (13:29)
[2022-01-08] MEDS ORDERED: Acetaminophen650 M1 PO (13:29)
[2022-01-08] MEDS ORDERED: VISBIOME 112.51 EACH PO (13:30)
[2022-01-08] MEDS ORDERED: TRAM50 PO (13:30)
[2022-01-08] MEDS ORDERED: CEPH500 PO (13:33)
--- NOTE | 2022-01-08 14:55 | NUR ---
DISCHARGE: PT DISCHARGED THE HOSPITAL VIA HOSPITAL WHEELCHAIR. PT'S GATHERED ALL OF PT'S BELONGINGS AND BROUGHT OUT TO CAR. WALKER WAS PROIVDED TO THE PT. POWERGLIDE REMOVED W/O ISSUES. DISCHARGE INSTRUCTIONS INCLUDING MEDICATIONS, ANTIBIOTICS, AND FOLLOW UP APPOINTMENTS WERE PROVIDED TO PT. PT STATED SHE UNDERSTOOD DISCHARGE TEACHING. PT STATED SHE GOT VERY GOOD CARE HERE AND APPRECIATED THE HARD WORK FROM EVERYONE.
== END 2022-01-08 14:38 | disposition home or self-care (01) | DRG 616 ==
LOC: ER 10:05 → MEDS 13:30
PROVIDERS: Nurse Practitioner Acute Care; Physician Assistant; Podiatrist; Student in an Organized Health Care Education/Training Program; ADMIT Internal Medicine
PROC: 3E02340 Introduction of Influenza Vaccine into Muscle, Percutaneous Approach (ICD-10-PCS; 2022-01-06)
PROC: 0Y6P0Z0 Detachment at Right 1st Toe, Complete, Open Approach (ICD-10-PCS; principal; 2022-01-06 12:00)
DX: E11.621 Type 2 diabetes mellitus with foot ulcer (principal); A48.0 Gas gangrene; E11.52 Type 2 diabetes mellitus with diabetic peripheral angiopathy with gangrene; M86.171 Other acute osteomyelitis, right ankle and foot; L03.115 Cellulitis of right lower limb; L02.611 Cutaneous abscess of right foot; Z68.42 Body mass index [BMI] 45.0-49.9, adult; E11.69 Type 2 diabetes mellitus with other specified complication; L03.031 Cellulitis of right toe; F41.8 Other specified anxiety disorders; G47.33 Obstructive sleep apnea (adult) (pediatric); L97.513 Non-pressure chronic ulcer of other part of right foot with necrosis of muscle; L97.514 Non-pressure chronic ulcer of other part of right foot with necrosis of bone; E11.43 Type 2 diabetes mellitus with diabetic autonomic (poly)neuropathy; B95.1 Streptococcus, group B, as the cause of diseases classified elsewhere; B96.4 Proteus (mirabilis) (morganii) as the cause of diseases classified elsewhere; K31.84 Gastroparesis; F12.10 Cannabis abuse, uncomplicated; J45.20 Mild intermittent asthma, uncomplicated; E66.01 Morbid (severe) obesity due to excess calories; Z79.51 Long term (current) use of inhaled steroids; Z23 Encounter for immunization; Z91.018 Allergy to other foods; Z79.4 Long term (current) use of insulin; Z90.49 Acquired absence of other specified parts of digestive tract; Z89.421 Acquired absence of other right toe(s); Z79.2 Long term (current) use of antibiotics; Z79.899 Other long term (current) drug therapy; Z59.819 Housing instability, housed unspecified; Z79.891 Long term (current) use of opiate analgesic; Z86.14 Personal history of Methicillin resistant Staphylococcus aureus infection; Z91.199 Patient's noncompliance with other medical treatment and regimen due to unspecified reason; Z88.8 Allergy status to other drugs, medicaments and biological substances
CPT/HCPCS: 36415; 73630; 73701; 80048; 80053; 80202; 82947; 83036; 83605; 85025; 85027; 85651; 87040; 87071; 87075; 87076; 87077; 87147; 87185; 87186; 87205; 88305; 88311; 90686; 93922; 94760; 96365-59; 96375-59; 97116; 97162; 99285-25; A9270; C1751; J1100; J2250; J2370; J2405; J2543; J2550; J2704; J2765; J2795; J3010; J3370; J7042; J7050; J7120; Q9967

== ENCOUNTER 2022-06-22 13:02 | Emergency (ER) | payer OTHER ==
[~2022-06-22] VITALS: Ht 172.7 cm; Wt 149.7 kg
[~2022-06-22 13:02] MED LIST changes: +Acetaminophen650 M1 PO; +Atarax10 MG PO; +TRAM50 PO; +VISBIOME 112.51 EACH PO
[2022-06-22 14:11] LABS: BASOPHILS ABSOLUTE AUTO 0.03 K/mm3 (0.00-0.23); BASOPHILS PERCENT AUTO 0 % (0-2); EOSINOPHILS ABSOLUTE AUTO 0.26 K/mm3 (0.00-0.68); EOSINOPHILS PERCENT AUTO 4 % (0-6); Hematocrit 38.4 % (33.0-51.0); Hemoglobin 12.6 g/dL (11.5-16.0); IMMATURE GRAN ABSOLUTE AUTO 0.01 K/mm3 (0.00-0.10); IMMATURE GRAN PERCENT AUTO 0 % (0-1); LYMPHOCYTES ABSOLUTE AUTO 1.57 K/mm3 (0.84-5.20); LYMPHOCYTES PERCENT AUTO 22 % (21-46); MONOCYTES ABSOLUTE AUTO 0.55 K/mm3 (0.16-1.47); MONOCYTES PERCENT AUTO 8 % (4-13); Mean Corpuscular HGB 30.2 pg (26.0-34.0); Mean Corpuscular HGB Conc 32.8 g/dL (31.5-36.5); Mean Corpuscular Volume 92 fL (80-100); Mean Platelet Volume 9.5 fL (9.1-12.4); NEUTROPHILS PERCENT AUTO 66 % (41-73); Platelet Count 265 K/mm3 (150-400); RDW Coefficient Variation 14.3 % (11.7-14.2); RDW Standard Deviation 48.5 fL (35.1-46.3); Red Blood Cell Count 4.17 M/mm3 (3.80-5.20); White Blood Cell Count 7.02 K/mm3 (4.00-11.30)
[2022-06-22 14:16] LABS: Albumin, Blood 3.3 g/dL (3.4-5.0); Albumin/Globulin Ratio 0.9 (0.8-1.8); Bilirubin, Total 1.1 mg/dL (0.1-1.0); Bun/Creatinine Ratio 36.1 (12.0-20.0); Calcium, Blood 9.1 mg/dL (8.5-10.1); Creatinine, Blood 0.5 mg/dL (0.40-1.00); Globulin, Blood 3.7 g/dL (2.2-4.0); Potassium, Blood 4.3 mmol/L (3.5-5.5)
[2022-06-22 15:05] LABS: Source, Urine Clean Catch
[2022-06-22 15:08] LABS: Appearance, Urine Hazy (Clear); Bilirubin, Urine Neg (Neg); Blood, Urine 1+ (Neg); Color, Urine Yellow (P-Yellow); Glucose Qualitative, Urine Neg (Neg); Ketones, Urine Neg (Neg); Leukocyte Esterase, Urine Neg (Neg); Nitrite, Urine Pos (Neg); Protein, Urine 1+ (Neg); Urobilinogen, Urine NORM (Normal)
[2022-06-22 15:20] LABS: Bacteria Many /hpf; Squamous Epithelial Cells Few /hpf (Few)
[2022-06-22 17:30] VITALS: BP 119/76
[2022-06-22] MEDS ORDERED: CEPH500 PO (18:20)
[2022-06-22] MEDS ORDERED: INSULIN GL100 UNIT/2 (18:26)
== END 2022-06-22 18:28 | disposition home or self-care (01) ==
LOC: ER 13:02
PROVIDERS: Student in an Organized Health Care Education/Training Program
DX: N94.89 Other specified conditions associated with female genital organs and menstrual cycle (principal); N39.0 Urinary tract infection, site not specified; E11.9 Type 2 diabetes mellitus without complications; Z91.018 Allergy to other foods; Z91.048 Other nonmedicinal substance allergy status; Z87.891 Personal history of nicotine dependence
CPT/HCPCS: 36415; 76856; 80053; 81001; 81025; 85025; 87077; 87086; 87186; 96374; 99284-25; J1885

== ENCOUNTER → 2022-07-25 | Outpatient (CLI) | payer OTHER ==
[~2022-07-25] MED LIST changes: +INSULIN GL100 UNIT/2
[2022-07-26 13:04] LABS: Candida species (DNA Probe) Positive (NEGATIVE); G. vaginalis (DNA Probe) Negative (NEGATIVE); T. vaginalis (DNA Probe) Negative (NEGATIVE)
== END | disposition home or self-care (01) ==
LOC: LAB 16:11 → LAB SHORT 16:11
PROVIDERS: Registered Nurse Community Health
DX: R30.0 Dysuria (principal)
CPT/HCPCS: 87077; 87086; 87186; 87480; 87510; 87660

== ENCOUNTER → 2022-07-30 | Outpatient (CLI) | payer OTHER | END | disposition home or self-care (01) | LOC: LAB 09:50 → LAB SHORT 09:50 | DX: E11.65 Type 2 diabetes mellitus with hyperglycemia (principal) | CPT/HCPCS: 82043 ==

== ENCOUNTER 2022-10-24 10:02 | Emergency (ER) | payer OTHER ==
[~2022-10-24] VITALS: Ht 172.7 cm; Wt 127.0 kg
[2022-10-24] MEDS ORDERED: GABA400 PO (10:11)
[2022-10-24 11:10] LABS: BASOPHILS ABSOLUTE AUTO 0.02 K/mm3 (0.00-0.23); BASOPHILS PERCENT AUTO 0 % (0-2); EOSINOPHILS ABSOLUTE AUTO 0.07 K/mm3 (0.00-0.68); EOSINOPHILS PERCENT AUTO 1 % (0-6); Hematocrit 38.9 % (33.0-51.0); Hemoglobin 13.4 g/dL (11.5-16.0); IMMATURE GRAN ABSOLUTE AUTO 0.02 K/mm3 (0.00-0.10); IMMATURE GRAN PERCENT AUTO 0 % (0-1); LYMPHOCYTES ABSOLUTE AUTO 1.45 K/mm3 (0.84-5.20); LYMPHOCYTES PERCENT AUTO 22 % (21-46); MONOCYTES ABSOLUTE AUTO 0.51 K/mm3 (0.16-1.47); MONOCYTES PERCENT AUTO 8 % (4-13); Mean Corpuscular HGB 30.7 pg (26.0-34.0); Mean Corpuscular HGB Conc 34.4 g/dL (31.5-36.5); Mean Corpuscular Volume 89 fL (80-100); Mean Platelet Volume 10.1 fL (9.1-12.4); NEUTROPHILS ABSOLUTE AUTO 4.62 K/mm3 (1.96-9.15); NEUTROPHILS PERCENT AUTO 69 % (41-73); Platelet Count 206 K/mm3 (150-400); RDW Coefficient Variation 13.5 % (11.7-14.2); RDW Standard Deviation 44.6 fL (35.1-46.3); Red Blood Cell Count 4.36 M/mm3 (3.80-5.20); White Blood Cell Count 6.69 K/mm3 (4.00-11.30)
[2022-10-24 11:33] LABS: Albumin, Blood 3.4 g/dL (3.4-5.0); Bilirubin, Total 1.4 mg/dL (0.1-1.0); Bun/Creatinine Ratio 25.2 (12.0-20.0); Calcium, Blood 8.9 mg/dL (8.5-10.1); Creatinine, Blood 0.63 mg/dL (0.40-1.00); Globulin, Blood 3.5 g/dL (2.2-4.0); Total Protein, Blood 6.9 g/dL (6.4-8.2)
[2022-10-24 11:46] VITALS: BP 125/99
[2022-10-24] MEDS ORDERED: ONDA4ODT SL (11:47)
== END 2022-10-24 12:00 | disposition home or self-care (01) ==
LOC: ER 10:02
PROVIDERS: Emergency Medicine
DX: R11.2 Nausea with vomiting, unspecified (principal); Z91.048 Other nonmedicinal substance allergy status; Z91.018 Allergy to other foods; Z79.899 Other long term (current) drug therapy; Z79.4 Long term (current) use of insulin; E11.43 Type 2 diabetes mellitus with diabetic autonomic (poly)neuropathy; K31.84 Gastroparesis; G47.33 Obstructive sleep apnea (adult) (pediatric); Z87.891 Personal history of nicotine dependence
CPT/HCPCS: 80053; 83690; 85025; 96361; 96374; 96375; 99284-25; J1200; J1790; J7120

== ENCOUNTER 2022-12-06 01:27 | Emergency (ER) | payer OTHER ==
[~2022-12-06] VITALS: Ht 172.7 cm; Wt 135.2 kg
[~2022-12-06 01:27] MED LIST changes: +GABA400 PO; +ONDA4ODT SL
[2022-12-06] MEDS ORDERED: DOTTI1 EA19 TOP (02:31)
[2022-12-06 02:38] LABS: BASOPHILS ABSOLUTE AUTO 0.03 K/mm3 (0.00-0.23); BASOPHILS PERCENT AUTO 0 % (0-2); EOSINOPHILS PERCENT AUTO 0 % (0-6); Hematocrit 39.7 % (33.0-51.0); Hemoglobin 14.7 g/dL (11.5-16.0); IMMATURE GRAN ABSOLUTE AUTO 0.07 K/mm3 (0.00-0.10); IMMATURE GRAN PERCENT AUTO 0 % (0-1); LYMPHOCYTES ABSOLUTE AUTO 1.25 K/mm3 (0.84-5.20); LYMPHOCYTES PERCENT AUTO 6 % (21-46); MONOCYTES ABSOLUTE AUTO 1.63 K/mm3 (0.16-1.47); MONOCYTES PERCENT AUTO 8 % (4-13); Mean Corpuscular HGB 30.9 pg (26.0-34.0); Mean Corpuscular Volume 84 fL (80-100); Mean Platelet Volume 9.8 fL (9.1-12.4); NEUTROPHILS ABSOLUTE AUTO 16.53 K/mm3 (1.96-9.15); NEUTROPHILS PERCENT AUTO 85 % (41-73); Platelet Count 274 K/mm3 (150-400); RDW Coefficient Variation 12.7 % (11.7-14.2); RDW Standard Deviation 38.5 fL (35.1-46.3); Red Blood Cell Count 4.75 M/mm3 (3.80-5.20); White Blood Cell Count 19.51 K/mm3 (4.00-11.30)
[2022-12-06 02:55] LABS: Albumin, Blood 4.2 g/dL (3.4-5.0); Bilirubin, Total 3.4 mg/dL (0.1-1.0); Bun/Creatinine Ratio 31.4 (12.0-20.0); Calcium, Blood 10.2 mg/dL (8.5-10.1); Creatinine, Blood 1.05 mg/dL (0.40-1.00); Globulin, Blood 4.2 g/dL (2.2-4.0); Potassium, Blood 3.1 mmol/L (3.5-5.5); Total Protein, Blood 8.4 g/dL (6.4-8.2)
[2022-12-06 04:00] VITALS: BP 141/82
[2022-12-06] MEDS ORDERED: Ondansetron Odt8 MG MM (05:08)
== END 2022-12-06 05:15 | disposition home or self-care (01) ==
LOC: ER 01:27
PROVIDERS: Emergency Medicine
DX: E11.43 Type 2 diabetes mellitus with diabetic autonomic (poly)neuropathy (principal); K31.84 Gastroparesis; Z91.048 Other nonmedicinal substance allergy status; Z91.018 Allergy to other foods; Z79.899 Other long term (current) drug therapy; Z79.4 Long term (current) use of insulin; J45.909 Unspecified asthma, uncomplicated; G47.33 Obstructive sleep apnea (adult) (pediatric); Z87.891 Personal history of nicotine dependence
CPT/HCPCS: 80053; 83690; 84703; 85025; 96361; 96374; 96375; 99284-25; A9270; J1790; J2405; J7030

== ENCOUNTER 2023-04-01 08:59 | Emergency (ER) | payer OTHER ==
[~2023-04-01] VITALS: Ht 172.7 cm; Wt 133.8 kg
[~2023-04-01 08:59] MED LIST changes: +DOTTI1 EA19 TOP; +ERYTHROMYCIN250 M1 PO; +Ondansetron Odt8 MG MM
[2023-04-01 09:17] VITALS: BP 135/88
[2023-04-01 09:50] LABS: BASOPHILS ABSOLUTE AUTO 0.02 K/mm3 (0.00-0.23); BASOPHILS PERCENT AUTO 0 % (0-2); EOSINOPHILS ABSOLUTE AUTO 0.01 K/mm3 (0.00-0.68); EOSINOPHILS PERCENT AUTO 0 % (0-6); Hematocrit 38.8 % (33.0-51.0); Hemoglobin 13.7 g/dL (11.5-16.0); IMMATURE GRAN ABSOLUTE AUTO 0.02 K/mm3 (0.00-0.10); IMMATURE GRAN PERCENT AUTO 0 % (0-1); LYMPHOCYTES ABSOLUTE AUTO 0.81 K/mm3 (0.84-5.20); LYMPHOCYTES PERCENT AUTO 13 % (21-46); MONOCYTES ABSOLUTE AUTO 0.28 K/mm3 (0.16-1.47); MONOCYTES PERCENT AUTO 4 % (4-13); Mean Corpuscular HGB 30.5 pg (26.0-34.0); Mean Corpuscular HGB Conc 35.3 g/dL (31.5-36.5); Mean Corpuscular Volume 86 fL (80-100); Mean Platelet Volume 9.8 fL (9.1-12.4); NEUTROPHILS ABSOLUTE AUTO 5.21 K/mm3 (1.96-9.15); NEUTROPHILS PERCENT AUTO 82 % (41-73); Platelet Count 250 K/mm3 (150-400); RDW Coefficient Variation 13.1 % (11.7-14.2); RDW Standard Deviation 41.5 fL (35.1-46.3); Red Blood Cell Count 4.49 M/mm3 (3.80-5.20); White Blood Cell Count 6.35 K/mm3 (4.00-11.30)
[2023-04-01 10:20] LABS: Albumin, Blood 3.8 g/dL (3.4-5.0); Albumin/Globulin Ratio 0.9 (0.8-1.8); Bilirubin, Total 1.9 mg/dL (0.1-1.0); Bun/Creatinine Ratio 31.1 (12.0-20.0); Calcium, Blood 9.4 mg/dL (8.5-10.1); Creatinine, Blood 0.64 mg/dL (0.40-1.00); Globulin, Blood 4.4 g/dL (2.2-4.0); Potassium, Blood 3.7 mmol/L (3.5-5.5); Total Protein, Blood 8.2 g/dL (6.4-8.2)
[2023-04-01 10:55] LABS: Source, Urine Clean Catch
[2023-04-01 11:21] LABS: Appearance, Urine Hazy (Clear); Bilirubin, Urine Neg (Neg); Blood, Urine 1+ (Neg); Color, Urine Yellow (P-Yellow); Glucose Qualitative, Urine 4+ (Neg); Ketones, Urine 3+ (Neg); Leukocyte Esterase, Urine Neg (Neg); Nitrite, Urine Neg (Neg); Protein, Urine 2+ (Neg); Urobilinogen, Urine NORM (Normal)
[2023-04-01] MEDS ORDERED: NS 1,000 ML IV SCH (11:25)
[2023-04-01] MEDS ORDERED: Metoclopramide HCl 5MG / ML 2ML Vial IV ONE (11:25)
[2023-04-01 11:47] LABS: Yeast/Fungi Urine Many /hpf
[2023-04-01 11:48] LABS: Bacteria Few /hpf; Hyaline Casts 0-2 /lpf (0-2); Red Blood Cells, Urine 0-2 /hpf (0-2); Squamous Epithelial Cells Few /hpf (Few); White Blood Cells, Urine 0-2 /hpf (0-5)
[2023-04-04] MEDS ORDERED: SULTRIDS PO (09:04)
[2023-04-04] MEDS ORDERED: CEPH250A PO (09:04)
== END 2023-04-01 11:49 | disposition left against medical advice (07) ==
LOC: ER 08:59
PROVIDERS: Student in an Organized Health Care Education/Training Program
DX: R11.2 Nausea with vomiting, unspecified (principal); L03.116 Cellulitis of left lower limb; E11.65 Type 2 diabetes mellitus with hyperglycemia; Z87.19 Personal history of other diseases of the digestive system; J45.909 Unspecified asthma, uncomplicated; G47.33 Obstructive sleep apnea (adult) (pediatric); Z86.14 Personal history of Methicillin resistant Staphylococcus aureus infection; Z79.4 Long term (current) use of insulin; Z79.899 Other long term (current) drug therapy; Z91.018 Allergy to other foods; Z91.048 Other nonmedicinal substance allergy status
CPT/HCPCS: 80053; 81001; 81025; 83690; 85025; 93005; 93010; 96374; 99283-25; J2765; J7030

== ENCOUNTER 2023-04-06 09:29 | Observation (INO) | payer OTHER ==
[~2023-04-06] VITALS: Ht 172.7 cm; Wt 138.7 kg
[~2023-04-06 09:29] MED LIST changes: +CEPH250A PO; -INSULIN GL100 UNIT/2; +INSULIN GL100 UNIT/2 SC
[2023-04-06] MEDS ORDERED: LORazepam 1 MG Tab SL PRN (11:15)
[2023-04-06 12:19] LABS: Albumin, Blood 3.6 g/dL (3.4-5.0); Albumin/Globulin Ratio 0.9 (0.8-1.8); Bilirubin, Total 0.8 mg/dL (0.1-1.0); Bun/Creatinine Ratio 41.3 (12.0-20.0); Calcium, Blood 9.4 mg/dL (8.5-10.1); Creatinine, Blood 0.56 mg/dL (0.40-1.00); Globulin, Blood 4.2 g/dL (2.2-4.0); Potassium, Blood 4.2 mmol/L (3.5-5.5); Total Protein, Blood 7.8 g/dL (6.4-8.2)
[2023-04-06 12:24] LABS: BASOPHILS ABSOLUTE AUTO 0.04 K/mm3 (0.00-0.23); BASOPHILS PERCENT AUTO 0 % (0-2); EOSINOPHILS ABSOLUTE AUTO 0.09 K/mm3 (0.00-0.68); EOSINOPHILS PERCENT AUTO 1 % (0-6); Hematocrit 38.9 % (33.0-51.0); Hemoglobin 13.1 g/dL (11.5-16.0); IMMATURE GRAN ABSOLUTE AUTO 0.04 K/mm3 (0.00-0.10); IMMATURE GRAN PERCENT AUTO 0 % (0-1); LYMPHOCYTES ABSOLUTE AUTO 1.93 K/mm3 (0.84-5.20); LYMPHOCYTES PERCENT AUTO 21 % (21-46); MONOCYTES ABSOLUTE AUTO 0.43 K/mm3 (0.16-1.47); MONOCYTES PERCENT AUTO 5 % (4-13); Mean Corpuscular HGB 30.5 pg (26.0-34.0); Mean Corpuscular HGB Conc 33.7 g/dL (31.5-36.5); Mean Corpuscular Volume 91 fL (80-100); NEUTROPHILS ABSOLUTE AUTO 6.59 K/mm3 (1.96-9.15); NEUTROPHILS PERCENT AUTO 72 % (41-73); RDW Coefficient Variation 13.5 % (11.7-14.2); RDW Standard Deviation 45.1 fL (35.1-46.3); White Blood Cell Count 9.12 K/mm3 (4.00-11.30)
[2023-04-06 12:42] LABS: Influenza A, PCR NEGATIVE (NEGATIVE); Influenza B, PCR NEGATIVE (NEGATIVE); Resp Syncytial Virus, PCR NEGATIVE (NEGATIVE); SARS-Cov-2 (COVID-19) PCR, MMC NEGATIVE (NEGATIVE)
[2023-04-06] MEDS ORDERED: Aspirin 81 MG Chew PO ONE (12:45)
[2023-04-06 12:49] LABS: Mean Platelet Volume 10.2 fL (9.1-12.4); Platelet Count 211 K/mm3 (150-400)
[2023-04-06] MEDS ORDERED: Acetaminophen 325 MG TABLET PO PRN (14:30)
[2023-04-06] MEDS ORDERED: ALPRAZolam 0.5 MG Tab PO PRN (14:30)
[2023-04-06] MEDS ORDERED: Morphine Sulfate 4 MG/1 ML Injection IV PRN (14:35)
[2023-04-06] MEDS ORDERED: Ondansetron HCl 2 MG / ML 2ML Vial IV PRN (14:35)
[2023-04-06] MEDS ORDERED: FLU VACC QS2023-24(6MOS UP)/PF 60 MCG/0.5 ML SYRINGE IM SCH (14:40)
[2023-04-06] MEDS ORDERED: Clopidogrel Bisulfate 300 MG Cap PO ONE (15:00)
[2023-04-06] MEDS ORDERED: Aspirin 81 MG Chew PO SCH (15:00)
[2023-04-06] MEDS ORDERED: CefTRIAXone Sodium 1,000 MG in NS 50 ML IV SCH (15:00)
[2023-04-06 15:19] VITALS: BP 115/91
[2023-04-06 15:36] LABS: Anti-Xa UFH, PHA Monitoring <0.10 IU/mL; International Normalized Ratio 0.98; Prothrombin Time Results 10.3 Sec (9.7-11.5)
[2023-04-06] MEDS ORDERED: Heparin Sodium 5000 Units/ML 1ML MDV IV ONE ×2 (16:20→18:30)
[2023-04-06] MEDS ORDERED: Heparin Sodium,Porcine/0.5 NS 500 ML IV SCH (16:20)
[2023-04-06] MEDS ORDERED: Metoclopramide HCl 10 MG Tab PO SCH (16:30)
[2023-04-06] MEDS ORDERED: Insulin Regular 100 UNIT/ML 10ML Vial SC SCH (16:30)
[2023-04-06] MEDS ORDERED: Metoprolol Tartrate 25 MG Tab PO SCH (17:00)
--- NOTE | 2023-04-06 17:59 | NUR ---
SHIFT SUMMARY; ASSUMED CARE FROM ED AT 1630. AMBULATES TO RESTROOM THEN TO BED IN ROOM INDEPENDANTLY. REPORTS LEFT SIDE WEAKNESS SINCE THURSDAY BUT USES UPPER AND LOWER EXTREMITY WITHOUT NOTICABLE DEFICET. SPEAKS FULL SENTENCES WITHOUT DIFFICULTY. 1ST PORTION STRESS TEST, MRI AND PE STUDY COMPLETED SHORTLY AFTER ARRIVAL. HEPARIN STARTED PER EMAR. DENIES CP OR SOB AT THIS TIME, BUT PREVIOUSLY REPORTED IT THE ER. VSS, WILL CONTINUE TO MONITOR AND TREAT UNTIL CHANGE OF SHIFT.
[2023-04-06] MEDS ORDERED: Atorvastatin 40 MG Tab PO SCH (18:00)
[2023-04-06] MEDS ORDERED: Insulin Glargine-Yfgn 100 Unit/mL 3 ML SYR SC SCH (21:00)
[2023-04-06] MEDS ORDERED: Gabapentin 300 MG Cap PO SCH (21:00)
[2023-04-06] MEDS ORDERED: Docusate Sodium 100 MG Cap PO SCH (21:00)
[2023-04-06] MEDS ORDERED: Doxycycline Hyclate 100 MG TAB PO SCH (21:00)
[2023-04-06 21:25] VITALS: BP 92/66
[2023-04-06 21:26] VITALS: BP 92/66
[2023-04-07 00:15] VITALS: BP 96/66
[2023-04-07] MEDS ORDERED: Clarify Drug Order XX ONE (00:55)
[2023-04-07 03:52] VITALS: BP 116/69
[2023-04-07 04:39] LABS: BASOPHILS ABSOLUTE AUTO 0.03 K/mm3 (0.00-0.23); BASOPHILS PERCENT AUTO 0 % (0-2); EOSINOPHILS ABSOLUTE AUTO 0.45 K/mm3 (0.00-0.68); EOSINOPHILS PERCENT AUTO 6 % (0-6); Hematocrit 34.3 % (33.0-51.0); Hemoglobin 11.6 g/dL (11.5-16.0); IMMATURE GRAN ABSOLUTE AUTO 0.07 K/mm3 (0.00-0.10); IMMATURE GRAN PERCENT AUTO 1 % (0-1); LYMPHOCYTES PERCENT AUTO 38 % (21-46); MONOCYTES ABSOLUTE AUTO 0.67 K/mm3 (0.16-1.47); MONOCYTES PERCENT AUTO 8 % (4-13); Mean Corpuscular HGB 30.4 pg (26.0-34.0); Mean Corpuscular HGB Conc 33.8 g/dL (31.5-36.5); Mean Corpuscular Volume 90 fL (80-100); Mean Platelet Volume 10.2 fL (9.1-12.4); NEUTROPHILS ABSOLUTE AUTO 3.93 K/mm3 (1.96-9.15); NEUTROPHILS PERCENT AUTO 48 % (41-73); Platelet Count 168 K/mm3 (150-400); RDW Coefficient Variation 13.6 % (11.7-14.2); RDW Standard Deviation 44.7 fL (35.1-46.3); Red Blood Cell Count 3.81 M/mm3 (3.80-5.20); White Blood Cell Count 8.25 K/mm3 (4.00-11.30)
--- NOTE | 2023-04-07 05:36 | NUR ---
SHIFT SUMMARY PT IS ALERT AND ORIENTED X4, COOPERATIVE WITH CARE AND ABLE TO MAKE NEEDS KNOWN. NADER. SHE IS ON RA AND MAINTAINING 02 SATURATION ABOVE 92%, SHE SAID SHE FELT SLIGHT PAIN IN CHEST WHEN SHE COUGHS BUT DENIES SOB. HR SR 60'S-70'S, BP STABLE, DENIES CHEST PAIN/PRESSURE EXCEPT WHEN SHE COUGHS. PT DENIES NUMBNESS/TINGLING TO L ARM. PT HAS NOT HAD SLURRED OR GARBLED SPEECH THIS SHIFT. NO FACIAL DROOPING PRESENT AND NO DRIFTING OF EITHER ARM WHEN BOTH LIFTED AT THE SAME TIME. PT'S SMILE IS SYMMETRICAL, AND ABLE TO STICK TONGUE OUT. PT SWEAT A LOT WHILE SLEEPING, PT SAID THAT IS NORMAL FOR HER, NO TEMPERATURE NOTED. PT HAD HALF OF A SANDWICH AND SOME SUGAR FREE PUDDING AT BEGINNING OF SHIFT AND TOLERATED WELL. PER DAY SHIFT REPORT, 2ND PART TO STRESS TEST THAT WAS PREVIOUSLY ORDERED FOR TODAY WAS CANCELED BC BILAT PE'S. PT HAS SLEPT THE MAJORITY OF THE SHIFT WITH UNLABORED BREATHING, 02 SAT ABOVE 92%, RR 16. CALL LIGHT WITHIN REACH.
[2023-04-07 07:03] LABS: Albumin, Blood 2.6 g/dL (3.4-5.0); Albumin/Globulin Ratio 0.7 (0.8-1.8); Bilirubin, Total 0.6 mg/dL (0.1-1.0); Bun/Creatinine Ratio 32.8 (12.0-20.0); Calcium, Blood 8.4 mg/dL (8.5-10.1); Creatinine, Blood 0.58 mg/dL (0.40-1.00); Globulin, Blood 3.7 g/dL (2.2-4.0); Potassium, Blood 4.5 mmol/L (3.5-5.5); Total Protein, Blood 6.3 g/dL (6.4-8.2)
[2023-04-07] MEDS ORDERED: Dose Adjust by Pharmacy XX STA (07:04)
[2023-04-07 08:19] VITALS: BP 137/88
[2023-04-07] MEDS ORDERED: Clopidogrel Bisulfate 75 MG Tab PO SCH (09:00)
[2023-04-07] MEDS ORDERED: Rivaroxaban 10 MG Tab PO SCH (11:00)
[2023-04-07] MEDS ORDERED: BusPIRone HCl 5 MG Tab PO SCH (11:00)
[2023-04-07] MEDS ORDERED: BUSP5 PO (11:08)
[2023-04-07 11:09] VITALS: BP 115/67
[2023-04-07] MEDS ORDERED: METO5A PO (11:09)
[2023-04-07] MEDS ORDERED: XARELTO10 M1 PO (11:10)
[2023-04-07] MEDS ORDERED: XARELTO20 MG PO (11:10)
--- NOTE | 2023-04-07 12:15 | NUR ---
DISCHARGE SUMMARY PT A&OX4. VSS. SP02>90% ON RA. TELEMETRY SHOWS NSR, HR 70'S-80'S. PT UP TO SHOWER PRIOR TO DISCHARGE. HEPARIN DC'D, BRIDGED TO XARELTO PER EMAR. IV REMOVED. MEDICATIONS FAXED TO [facility] PER PT'S REQUEST. DISCHARGE ORDERS REVIEWED WITH PT. DISCHARGE MEDICATION REVIEWED WITH PT, PT VERBALIZED UNDERSTANDING. PT STATES, "I AM CALLING MY DR FOR A FOLLOWUP SOON I LEAVE HERE". PT ALSO STATES, "MY HAS ALREADY PROGRAMMED ALARMS FOR XARELTO REMINDERS ON HIS PHONE". PT AND PT'S BELONGINGS WHEELED TO PRIVATE VEHICLE.
[2023-04-28] MEDS ORDERED: Rivaroxaban 10 MG Tab PO SCH (09:00)
== END 2023-04-07 12:15 | disposition home or self-care (01) ==
LOC: ER 09:29 → PCU 09:30
PROVIDERS: Emergency Medicine; Pharmacist; ADMIT Internal Medicine
DX: I26.92 Saddle embolus of pulmonary artery without acute cor pulmonale (principal); E10.43 Type 1 diabetes mellitus with diabetic autonomic (poly)neuropathy; K31.84 Gastroparesis; E10.319 Type 1 diabetes mellitus with unspecified diabetic retinopathy without macular edema; I10 Essential (primary) hypertension; E66.01 Morbid (severe) obesity due to excess calories; G47.33 Obstructive sleep apnea (adult) (pediatric); F41.9 Anxiety disorder, unspecified; F12.90 Cannabis use, unspecified, uncomplicated; Z87.891 Personal history of nicotine dependence; Z68.42 Body mass index [BMI] 45.0-49.9, adult; Z20.822 Contact with and (suspected) exposure to COVID-19
CPT/HCPCS: 0241U; 36415; 70450; 70551; 71046; 71260; 78451; 80053; 82947; 83036; 83880; 84145; 84443; 84484; 85025; 85520; 85610; 85730; 93005; 93010; 93306; 94762; 99285-25; A9270; A9500; G0378; J0696; J1644; J1815; Q9967

== ENCOUNTER → 2023-12-28 | Outpatient (CLI) | payer OTHER ==
[~2023-12-28] MED LIST changes: +BUSP5 PO; +Hydroxyzine HCl25 MG PO; +ONDA4 PO; +POTA20PAC PO; +Vibramycin100 MG PO; +XARELTO10 M1 PO; +XARELTO20 MG PO
== END | disposition home or self-care (01) ==
LOC: LAB 15:52 → LAB SHORT 15:52
DX: L02.419 Cutaneous abscess of limb, unspecified (principal)
CPT/HCPCS: 87070; 87075; 87077; 87186; 87205

== ENCOUNTER 2023-12-31 14:53 | Emergency (ER) | payer OTHER ==
[~2023-12-31] VITALS: Ht 172.7 cm; Wt 134.7 kg
[2023-12-31 15:32] LABS: BASOPHILS ABSOLUTE AUTO 0.03 K/mm3 (0.00-0.23); BASOPHILS PERCENT AUTO 0 % (0-2); EOSINOPHILS ABSOLUTE AUTO 0.06 K/mm3 (0.00-0.68); EOSINOPHILS PERCENT AUTO 1 % (0-6); Hematocrit 37.5 % (33.0-51.0); Hemoglobin 13.3 g/dL (11.5-16.0); IMMATURE GRAN ABSOLUTE AUTO 0.02 K/mm3 (0.00-0.10); IMMATURE GRAN PERCENT AUTO 0 % (0-1); LYMPHOCYTES ABSOLUTE AUTO 1.16 K/mm3 (0.84-5.20); LYMPHOCYTES PERCENT AUTO 17 % (21-46); MONOCYTES ABSOLUTE AUTO 0.46 K/mm3 (0.16-1.47); MONOCYTES PERCENT AUTO 7 % (4-13); Mean Corpuscular HGB 31.8 pg (26.0-34.0); Mean Corpuscular HGB Conc 35.5 g/dL (31.5-36.5); Mean Corpuscular Volume 90 fL (80-100); Mean Platelet Volume 9.9 fL (9.1-12.4); NEUTROPHILS PERCENT AUTO 75 % (41-73); Platelet Count 235 K/mm3 (150-400); Red Blood Cell Count 4.18 M/mm3 (3.80-5.20); White Blood Cell Count 6.83 K/mm3 (4.00-11.30)
[2023-12-31 15:55] LABS: Albumin, Blood 3.6 g/dL (3.4-5.0); Albumin/Globulin Ratio 0.8 (0.8-1.8); Bun/Creatinine Ratio 33.2 (12.0-20.0); Calcium, Blood 10.1 mg/dL (8.5-10.1); Creatinine, Blood 0.57 mg/dL (0.40-1.00); Globulin, Blood 4.3 g/dL (2.2-4.0); Potassium, Blood 4.1 mmol/L (3.5-5.5); Total Protein, Blood 7.9 g/dL (6.4-8.2)
[2023-12-31] MEDS ORDERED: Lidocaine/Tetracaine/Epinephr 3 ML GEL SYRINGE TOP ONE (17:55)
[2023-12-31] MEDS ORDERED: DOXY100 PO (20:58)
[2023-12-31 21:08] VITALS: BP 161/62
== END 2023-12-31 21:05 | disposition home or self-care (01) ==
LOC: ER 14:53
PROVIDERS: Physician Assistant
DX: J18.9 Pneumonia, unspecified organism (principal); L02.412 Cutaneous abscess of left axilla; L02.213 Cutaneous abscess of chest wall; E11.43 Type 2 diabetes mellitus with diabetic autonomic (poly)neuropathy; K31.84 Gastroparesis; J45.909 Unspecified asthma, uncomplicated; G47.33 Obstructive sleep apnea (adult) (pediatric); G43.909 Migraine, unspecified, not intractable, without status migrainosus; Z87.891 Personal history of nicotine dependence; Z86.711 Personal history of pulmonary embolism; Z91.018 Allergy to other foods; Z91.048 Other nonmedicinal substance allergy status; Z79.4 Long term (current) use of insulin; Z79.01 Long term (current) use of anticoagulants; Z79.899 Other long term (current) drug therapy
CPT/HCPCS: 71046; 71260; 80053; 84484; 85025; 93971; 99285-25; Q9967

== ENCOUNTER 2024-02-23 09:44 | Emergency (ER) | payer OTHER ==
[~2024-02-23] VITALS: Ht 172.7 cm; Wt 136.1 kg
[2024-02-23] MEDS ORDERED: Ondansetron HCl 2 MG / ML 2ML Vial IV ONE (10:30)
[2024-02-23 10:42] LABS: BASOPHILS ABSOLUTE AUTO 0.03 K/mm3 (0.00-0.23); BASOPHILS PERCENT AUTO 0 % (0-2); EOSINOPHILS ABSOLUTE AUTO 0.01 K/mm3 (0.00-0.68); EOSINOPHILS PERCENT AUTO 0 % (0-6); Hematocrit 39.6 % (33.0-51.0); IMMATURE GRAN ABSOLUTE AUTO 0.03 K/mm3 (0.00-0.10); IMMATURE GRAN PERCENT AUTO 0 % (0-1); LYMPHOCYTES ABSOLUTE AUTO 1.22 K/mm3 (0.84-5.20); LYMPHOCYTES PERCENT AUTO 12 % (21-46); MONOCYTES ABSOLUTE AUTO 0.69 K/mm3 (0.16-1.47); MONOCYTES PERCENT AUTO 7 % (4-13); Mean Corpuscular HGB Conc 35.4 g/dL (31.5-36.5); Mean Corpuscular Volume 88 fL (80-100); Mean Platelet Volume 9.7 fL (9.1-12.4); NEUTROPHILS ABSOLUTE AUTO 8.25 K/mm3 (1.96-9.15); NEUTROPHILS PERCENT AUTO 81 % (41-73); Platelet Count 245 K/mm3 (150-400); RDW Coefficient Variation 12.9 % (11.7-14.2); RDW Standard Deviation 41.1 fL (35.1-46.3); Red Blood Cell Count 4.51 M/mm3 (3.80-5.20); White Blood Cell Count 10.23 K/mm3 (4.00-11.30)
[2024-02-23 11:10] LABS: Albumin, Blood 3.9 g/dL (3.4-5.0); Bilirubin, Total 2.2 mg/dL (0.1-1.0); Bun/Creatinine Ratio 28.4 (12.0-20.0); Calcium, Blood 10.1 mg/dL (8.5-10.1); Creatinine, Blood 0.63 mg/dL (0.40-1.00); Potassium, Blood 3.2 mmol/L (3.5-5.5); Total Protein, Blood 7.9 g/dL (6.4-8.2)
[2024-02-23 14:06] VITALS: BP 154/86
[2024-02-23] MEDS ORDERED: Mag Hydrox/AL Hydrox/Simeth 30 ML UDC PO ONE (14:25)
[2024-02-23] MEDS ORDERED: Promethazine HCl 25 MG Tab PO ONE (14:25)
[2024-02-23] MEDS ORDERED: Lidocaine 2% Viscous Soln 15 ML UDC PO ONE (14:25)
[2024-02-23] MEDS ORDERED: BASAGLAR K100 UNIT/3 SC (14:40)
[2024-02-23] MEDS ORDERED: PROM25 PO (14:40)
== END 2024-02-23 15:08 | disposition home or self-care (01) ==
LOC: ER 09:44
PROVIDERS: Physician Assistant
DX: E11.65 Type 2 diabetes mellitus with hyperglycemia (principal); F41.9 Anxiety disorder, unspecified; L03.114 Cellulitis of left upper limb; L03.116 Cellulitis of left lower limb; J45.909 Unspecified asthma, uncomplicated; G47.33 Obstructive sleep apnea (adult) (pediatric); G43.909 Migraine, unspecified, not intractable, without status migrainosus; Z79.899 Other long term (current) drug therapy; Z79.4 Long term (current) use of insulin; Z91.018 Allergy to other foods; Z88.1 Allergy status to other antibiotic agents; Z91.048 Other nonmedicinal substance allergy status
CPT/HCPCS: 80053; 82947; 85025; 96374; 99284-25; A9270; J2405

== ENCOUNTER 2024-03-07 13:28 | Emergency (ER) | payer OTHER ==
[~2024-03-07] VITALS: Ht 172.7 cm; Wt 142.9 kg
[~2024-03-07 13:28] MED LIST changes: +BASAGLAR K100 UNIT/3 SC
[2024-03-07 14:04] VITALS: BP 168/103
[2024-03-07] MEDS ORDERED: Percocet 5-3251 EACH PO (16:09)
== END 2024-03-07 16:34 | disposition home or self-care (01) ==
LOC: ER 13:28
DX: L89.899 Pressure ulcer of other site, unspecified stage (principal); E11.9 Type 2 diabetes mellitus without complications; J45.909 Unspecified asthma, uncomplicated; G47.33 Obstructive sleep apnea (adult) (pediatric); Z87.891 Personal history of nicotine dependence; Z88.1 Allergy status to other antibiotic agents; Z88.2 Allergy status to sulfonamides; Z91.018 Allergy to other foods; Z91.048 Other nonmedicinal substance allergy status; Z79.4 Long term (current) use of insulin; Z79.899 Other long term (current) drug therapy
CPT/HCPCS: 73630; 99283-25

== ENCOUNTER 2024-03-10 14:39 | Inpatient (IN) | payer OTHER ==
[~2024-03-10] VITALS: Ht 172.7 cm; Wt 135.9 kg
[2024-03-10] MEDS ORDERED: Morphine Sulfate 4 MG/1 ML Injection IV ONE (19:10)
[2024-03-10] MEDS ORDERED: Clindamycin 600mg in D5W 50 ML IV ONE (19:10)
[2024-03-10 19:42] LABS: BASOPHILS ABSOLUTE AUTO 0.03 K/mm3 (0.00-0.23); BASOPHILS PERCENT AUTO 0 % (0-2); EOSINOPHILS ABSOLUTE AUTO 0.19 K/mm3 (0.00-0.68); EOSINOPHILS PERCENT AUTO 3 % (0-6); Hematocrit 37.4 % (33.0-51.0); Hemoglobin 12.8 g/dL (11.5-16.0); IMMATURE GRAN ABSOLUTE AUTO 0.02 K/mm3 (0.00-0.10); IMMATURE GRAN PERCENT AUTO 0 % (0-1); LYMPHOCYTES ABSOLUTE AUTO 1.76 K/mm3 (0.84-5.20); LYMPHOCYTES PERCENT AUTO 23 % (21-46); MONOCYTES ABSOLUTE AUTO 0.55 K/mm3 (0.16-1.47); MONOCYTES PERCENT AUTO 7 % (4-13); Mean Corpuscular HGB 30.9 pg (26.0-34.0); Mean Corpuscular HGB Conc 34.2 g/dL (31.5-36.5); Mean Corpuscular Volume 90 fL (80-100); NEUTROPHILS ABSOLUTE AUTO 5.16 K/mm3 (1.96-9.15); NEUTROPHILS PERCENT AUTO 67 % (41-73); Platelet Count 197 K/mm3 (150-400); RDW Coefficient Variation 13.6 % (11.7-14.2); RDW Standard Deviation 45.4 fL (35.1-46.3); Red Blood Cell Count 4.14 M/mm3 (3.80-5.20); White Blood Cell Count 7.71 K/mm3 (4.00-11.30)
[2024-03-10 20:05] LABS: Albumin, Blood 3.4 g/dL (3.4-5.0); Albumin/Globulin Ratio 0.8 (0.8-1.8); Bilirubin, Total 0.8 mg/dL (0.1-1.0); Bun/Creatinine Ratio 30.5 (12.0-20.0); Calcium, Blood 9.6 mg/dL (8.5-10.1); Creatinine, Blood 0.59 mg/dL (0.40-1.00); Globulin, Blood 4.4 g/dL (2.2-4.0); Potassium, Blood 4.3 mmol/L (3.5-5.5); Total Protein, Blood 7.8 g/dL (6.4-8.2)
[2024-03-10] MEDS ORDERED: Ondansetron HCl 2 MG / ML 2ML Vial IV PRN (20:50)
[2024-03-10] MEDS ORDERED: OxyCODONE 5 mg/Acetamin 325 mg TABLET PO PRN (20:50)
[2024-03-10] MEDS ORDERED: NS 1,000 ML IV SCH (20:50)
[2024-03-10] MEDS ORDERED: Metoclopramide HCl 5MG / ML 2ML Vial IV PRN (20:55)
[2024-03-10] MEDS ORDERED: FLU VACC TS2024-25(6MOS UP)/PF 45 MCG/0.5 ML SYRINGE IM SCH (20:55)
[2024-03-10] MEDS ORDERED: Insulin Glargine-Yfgn 100 Unit/mL 3 ML SYR SC SCH (21:00)
[2024-03-10] MEDS ORDERED: Lactobacil 2-S.Thermo-Bifido 1 1 Cap PO SCH (21:00)
[2024-03-10] MEDS ORDERED: Gabapentin 100 MG Cap PO SCH (21:00)
[2024-03-10] MEDS ORDERED: Vancomycin HCL 2,500 MG in NS 500 ML IV ONE (21:15)
[2024-03-10] MEDS ORDERED: CefTRIAXone Sodium 2,000 MG in NS 100 ML IV SCH (22:00)
[2024-03-11 04:54] LABS: BASOPHILS ABSOLUTE AUTO 0.01 K/mm3 (0.00-0.23); BASOPHILS PERCENT AUTO 0 % (0-2); EOSINOPHILS ABSOLUTE AUTO 0.14 K/mm3 (0.00-0.68); EOSINOPHILS PERCENT AUTO 3 % (0-6); Hematocrit 33.4 % (33.0-51.0); Hemoglobin 11.3 g/dL (11.5-16.0); IMMATURE GRAN ABSOLUTE AUTO 0.02 K/mm3 (0.00-0.10); IMMATURE GRAN PERCENT AUTO 0 % (0-1); LYMPHOCYTES ABSOLUTE AUTO 1.12 K/mm3 (0.84-5.20); LYMPHOCYTES PERCENT AUTO 20 % (21-46); MONOCYTES ABSOLUTE AUTO 0.39 K/mm3 (0.16-1.47); MONOCYTES PERCENT AUTO 7 % (4-13); Mean Corpuscular HGB 30.9 pg (26.0-34.0); Mean Corpuscular HGB Conc 33.8 g/dL (31.5-36.5); Mean Corpuscular Volume 91 fL (80-100); Mean Platelet Volume 9.7 fL (9.1-12.4); NEUTROPHILS ABSOLUTE AUTO 3.96 K/mm3 (1.96-9.15); NEUTROPHILS PERCENT AUTO 70 % (41-73); Platelet Count 166 K/mm3 (150-400); RDW Coefficient Variation 13.6 % (11.7-14.2); RDW Standard Deviation 46.2 fL (35.1-46.3); Red Blood Cell Count 3.66 M/mm3 (3.80-5.20); White Blood Cell Count 5.64 K/mm3 (4.00-11.30)
[2024-03-11 05:06] LABS: International Normalized Ratio 0.94; Prothrombin Time Results 10.1 Sec (9.7-11.5)
[2024-03-11 05:19] LABS: Albumin, Blood 2.5 g/dL (3.4-5.0); Albumin/Globulin Ratio 0.7 (0.8-1.8); Bilirubin, Total 0.9 mg/dL (0.1-1.0); Bun/Creatinine Ratio 34.6 (12.0-20.0); Calcium, Blood 8.7 mg/dL (8.5-10.1); Creatinine, Blood 0.52 mg/dL (0.40-1.00); Globulin, Blood 3.6 g/dL (2.2-4.0); Magnesium, Blood 2.3 mg/dL (1.6-2.4); Potassium, Blood 4.1 mmol/L (3.5-5.5); Total Protein, Blood 6.1 g/dL (6.4-8.2)
[2024-03-11] MEDS ORDERED: HyDROXyzine HCl 25 MG Tab PO ONE (05:35)
[2024-03-11] MEDS ORDERED: Pantoprazole Sodium 40 MG Tab PO SCH (06:00)
[2024-03-11] MEDS ORDERED: Gabapentin 300 MG Cap PO SCH ×2 (09:08→18:00)
[2024-03-11] MEDS ORDERED: Insulin Human Lispro 100 Units/ML 3ML Syringe SC SCH ×2 (09:12)
[2024-03-11] MEDS ORDERED: Vancomycin HCL 1,500 MG in NS 250 ML IV SCH (10:00)
[2024-03-11] MEDS ORDERED: Insulin Glargine-Yfgn 100 Unit/mL 3 ML SYR SC ONE (12:00)
[2024-03-11 12:29] VITALS: BP 143/96
[2024-03-11] MEDS ORDERED: HYDHCL25 PO (12:34)
[2024-03-11] MEDS ORDERED: PANT20 PO (12:35)
[2024-03-11] MEDS ORDERED: GABA300 PO (12:35)
[2024-03-11 15:00] VITALS: BP 113/71
--- NOTE | 2024-03-11 17:57 | NUR ---
PATIENT IS ALERT AND ORIENTED AND COOPERATIVE WITH CARE. ON RA. INDEPENDENT IN THE ROOM. PAIN MANAGED PER EMAR. PATIENT IS ON A CONSISTENT CARB DIET. Q6H BLOOD GLUCOSE CHECKS. PICTURES OF WOUNDS TAKEN AND PLACED IN THE CHART. DR. AHN HAS BEEN CONSULTED AND SAW THE PATIENT THIS SHIFT. PT IS IN MRI NOW TO CHECK FOR AN ABSCESS. SPOUSE IS AT THE BEDSIDE. WILL CONTINUE TO MONITOR
[2024-03-11 19:14] VITALS: BP 132/82
[2024-03-11] MEDS ORDERED: HyDROXyzine HCl 25 MG Tab PO PRN (20:20)
[2024-03-11 21:32] LABS: Vancomycin, Trough 16.2 ug/mL (5.0-10.0)
--- NOTE | 2024-03-12 04:47 | NUR ---
NOC SUMMARY- PT HAS BEEN NPO SINCE WI. PT PAIN MANAGED WELL. PT REPORTS SHE HAS FREQUENT ITCHINHING AND USES VISTORIL TO MANAGE SYMPTOMS. HOSPITALIST CALLED AND PRN VISTORIL WAS ORDERED. PT HAS BEEN RESTING COMFORTABLY. CALL LIGHT IN REACH.
[2024-03-12 05:03] VITALS: BP 108/79
[2024-03-12 07:30] VITALS: BP 133/81
[2024-03-12 10:55] LABS: BASOPHILS ABSOLUTE AUTO 0.02 K/mm3 (0.00-0.23); BASOPHILS PERCENT AUTO 0 % (0-2); EOSINOPHILS ABSOLUTE AUTO 0.22 K/mm3 (0.00-0.68); EOSINOPHILS PERCENT AUTO 4 % (0-6); Hematocrit 38.3 % (33.0-51.0); Hemoglobin 12.7 g/dL (11.5-16.0); IMMATURE GRAN ABSOLUTE AUTO 0.01 K/mm3 (0.00-0.10); IMMATURE GRAN PERCENT AUTO 0 % (0-1); LYMPHOCYTES ABSOLUTE AUTO 1.28 K/mm3 (0.84-5.20); LYMPHOCYTES PERCENT AUTO 23 % (21-46); MONOCYTES ABSOLUTE AUTO 0.29 K/mm3 (0.16-1.47); MONOCYTES PERCENT AUTO 5 % (4-13); Mean Corpuscular HGB 30.9 pg (26.0-34.0); Mean Corpuscular HGB Conc 33.2 g/dL (31.5-36.5); Mean Corpuscular Volume 93 fL (80-100); Mean Platelet Volume 9.9 fL (9.1-12.4); NEUTROPHILS ABSOLUTE AUTO 3.65 K/mm3 (1.96-9.15); NEUTROPHILS PERCENT AUTO 67 % (41-73); Platelet Count 185 K/mm3 (150-400); RDW Coefficient Variation 13.7 % (11.7-14.2); Red Blood Cell Count 4.11 M/mm3 (3.80-5.20); White Blood Cell Count 5.47 K/mm3 (4.00-11.30)
--- NOTE | 2024-03-12 10:57 | NUR ---
IV ACCESS: PT PIV LEAKING AND BURNING WHEN VANCO DOSE STARTED. PT STATES SHE IS A CHALENINGING IV START. PCU NURSE PLANNED TO START POWERGLIDE WHEN ABLE. PT UP TO SHOWER WHILE WAITING.
[2024-03-12 11:14] LABS: Albumin, Blood 3.1 g/dL (3.4-5.0); Albumin/Globulin Ratio 0.7 (0.8-1.8); Bilirubin, Total 0.7 mg/dL (0.1-1.0); Bun/Creatinine Ratio 33.7 (12.0-20.0); Calcium, Blood 8.7 mg/dL (8.5-10.1); Creatinine, Blood 0.42 mg/dL (0.40-1.00); Globulin, Blood 4.3 g/dL (2.2-4.0); Potassium, Blood 4.1 mmol/L (3.5-5.5); Total Protein, Blood 7.4 g/dL (6.4-8.2)
[2024-03-12 15:41] VITALS: BP 155/94
--- NOTE | 2024-03-12 17:35 | NUR ---
PT HAS BEEN STABLE THIS SHIFT. NO SURGERY PLANNED AT THIS TIME. PT HAD SHOWER TODAY. CELLULITIS IMPROVING ON LEFT LEG. CONT ABX. VANCO TROUGH TOMORROW. PT HAD POWERGLIDE PLACED TODAY. PAIN CONTROLLED WITH PRN PERCOCET. PT EATING WELL. BLOOD SUGARS CONTROLLED WITH SLIDING SCALE. PT INDEP IN ROOM. USES CALL LIGHT APPROPRIATELY NEEDED.
[2024-03-12 19:05] VITALS: BP 120/72
[2024-03-12] MEDS ORDERED: Insulin Glargine-Yfgn 100 Unit/mL 3 ML SYR SC SCH (21:00)
[2024-03-12] MEDS ORDERED: Insulin Human Lispro 100 Units/ML 3ML Syringe SC SCH ×2 (21:00)
--- NOTE | 2024-03-12 21:05 | NUR ---
IV ACCESS NOTE PT REPORT SUDDEN INCREASE IN RUE PAIN, MILD RESSNESS NOTED TO THE AREA. TENDER TO PALPATION. UNABLE TO FLUSH OR PULL BACK ON LINE. LINE REMOVED PER CLINICAL JUDGEMENT. CALL PLACED TO PCU FOR ANOTHER ULTRASOUND GUIDED LINE
[2024-03-13] MEDS ORDERED: Vancomycin HCL 1,500 MG in NS 250 ML IV SCH
--- NOTE | 2024-03-13 04:35 | NUR ---
SHIFT SUMMARY VSS. PT SLEPT ON AND OFF T/O THE NIGHT. LLE REMAINS EDEMATOUS BUT PT REPORTS IT LOOKS SIGNIFIGANTLY BETTER. MINIMAL REDDNESS NOTED. PT REPORTS MINIMAL PAIN T/O THE NIGHT, MEDICATED ONCE PER EMAR. IV ABX INFUSING PER EMAR. WOUNDS REMAIN CECILIA, NO DRAINAGE NOTED. PLAN TO CONTINUE IV ABX AND AWAIT MEDICAL CLEARENCE. THE PATIENT IS CURRENTLY SLEEPING, IN NO DISTRESS, CALL LIGHT IN REACH
[2024-03-13 05:21] VITALS: BP 136/73
[2024-03-13 06:31] LABS: Hematocrit 34.9 % (33.0-51.0); Hemoglobin 11.7 g/dL (11.5-16.0); Mean Corpuscular HGB 31.1 pg (26.0-34.0); Mean Corpuscular HGB Conc 33.5 g/dL (31.5-36.5); Mean Corpuscular Volume 93 fL (80-100); Mean Platelet Volume 10.1 fL (9.1-12.4); Platelet Count 167 K/mm3 (150-400); RDW Coefficient Variation 13.7 % (11.7-14.2); RDW Standard Deviation 46.7 fL (35.1-46.3); Red Blood Cell Count 3.76 M/mm3 (3.80-5.20); White Blood Cell Count 5.12 K/mm3 (4.00-11.30)
[2024-03-13 06:50] LABS: Albumin, Blood 2.4 g/dL (3.4-5.0); Albumin/Globulin Ratio 0.6 (0.8-1.8); Bilirubin, Total 0.6 mg/dL (0.1-1.0); Bun/Creatinine Ratio 27.6 (12.0-20.0); Calcium, Blood 8.8 mg/dL (8.5-10.1); Creatinine, Blood 0.58 mg/dL (0.40-1.00); Globulin, Blood 3.7 g/dL (2.2-4.0); Potassium, Blood 3.8 mmol/L (3.5-5.5); Total Protein, Blood 6.1 g/dL (6.4-8.2)
[2024-03-13 06:58] LABS: BASOPHILS PERCENT MAN 0 % (0-2); EOSINOPHILS PERCENT MAN 4 % (0-6); LYMPHOCYTES ABSOLUTE MAN 1.94 K/mm3 (0.84-5.20); LYMPHOCYTES PERCENT MAN 38 % (21-46); MONOCYTES ABSOLUTE MAN 0.25 K/mm3 (0.16-1.47); MONOCYTES PERCENT MAN 5 % (4-13); NEUTROPHILS ABSOLUTE MAN 2.71 K/mm3 (1.96-9.15); SEG NEUTROPHILS PERCENT MAN 53 % (41-73); TOTAL CELLS COUNTED 100
[2024-03-13 07:33] VITALS: BP 146/79
[2024-03-13 11:39] LABS: Vancomycin, Trough 18.2 ug/mL (5.0-10.0)
[2024-03-13 17:00] VITALS: BP 160/87
--- NOTE | 2024-03-13 17:10 | NUR ---
SUMMARY NO ACUTE CHANGES T/O SHIFT. MEDICATED PER ORDERS FOR PAIN THIS AM. ADMINISTERED ABX PER ORDERS. PT INDEPENDENT IN ROOM. SPOUSE BEDSIDE. CALL LIGHT IN REACH.
[2024-03-13 19:00] VITALS: BP 114/63
[2024-03-14 05:33] VITALS: BP 109/62
[2024-03-14 06:16] LABS: BASOPHILS ABSOLUTE AUTO 0.02 K/mm3 (0.00-0.23); BASOPHILS PERCENT AUTO 0 % (0-2); EOSINOPHILS ABSOLUTE AUTO 0.24 K/mm3 (0.00-0.68); EOSINOPHILS PERCENT AUTO 4 % (0-6); Hematocrit 33.6 % (33.0-51.0); Hemoglobin 11.4 g/dL (11.5-16.0); IMMATURE GRAN ABSOLUTE AUTO 0.01 K/mm3 (0.00-0.10); IMMATURE GRAN PERCENT AUTO 0 % (0-1); LYMPHOCYTES ABSOLUTE AUTO 1.93 K/mm3 (0.84-5.20); LYMPHOCYTES PERCENT AUTO 32 % (21-46); MONOCYTES ABSOLUTE AUTO 0.48 K/mm3 (0.16-1.47); MONOCYTES PERCENT AUTO 8 % (4-13); Mean Corpuscular HGB 31.2 pg (26.0-34.0); Mean Corpuscular HGB Conc 33.9 g/dL (31.5-36.5); Mean Corpuscular Volume 92 fL (80-100); Mean Platelet Volume 10.1 fL (9.1-12.4); NEUTROPHILS ABSOLUTE AUTO 3.41 K/mm3 (1.96-9.15); NEUTROPHILS PERCENT AUTO 56 % (41-73); Platelet Count 183 K/mm3 (150-400); RDW Coefficient Variation 13.6 % (11.7-14.2); RDW Standard Deviation 46.2 fL (35.1-46.3); Red Blood Cell Count 3.65 M/mm3 (3.80-5.20); White Blood Cell Count 6.09 K/mm3 (4.00-11.30)
[2024-03-14 06:34] LABS: Albumin, Blood 2.3 g/dL (3.4-5.0); Albumin/Globulin Ratio 0.6 (0.8-1.8); Bilirubin, Total 0.3 mg/dL (0.1-1.0); Bun/Creatinine Ratio 40.9 (12.0-20.0); Calcium, Blood 8.5 mg/dL (8.5-10.1); Creatinine, Blood 0.51 mg/dL (0.40-1.00); Globulin, Blood 3.6 g/dL (2.2-4.0); Potassium, Blood 3.8 mmol/L (3.5-5.5); Total Protein, Blood 5.9 g/dL (6.4-8.2)
--- NOTE | 2024-03-14 07:12 | NUR ---
SHIFT SUMMARY; PATIENT SLEPT IN LONG INTERVALS. REMAINS IN CONTACT ISOLATION FOR MRSA. IV INFUSING NS/100ML/HR. EDEMA IN LEFT FOOT DECREASING. SPOUSE STAYED ALL NIGHT,
[2024-03-14 07:15] VITALS: BP 127/61
[2024-03-14] MEDS ORDERED: DOXY100 PO (12:38)
[2024-03-14] MEDS ORDERED: VISBIOME 112.51 EACH PO (12:38)
--- NOTE | 2024-03-14 13:08 | NUR ---
DISCHARGE SUMMARY S/P CELLULITIS WITH DIABETIC FOOT ULCER ON LEFT FOOT. PT REPORTS NO PAIN THIS AM DURING ASSESSMENT AND IS AMBULATING IN THE HALLS INDEPENDENTLY, REDNESS ON L ANKLE IS REDUCING, TOLERATING PO, VOIDING WELL. DISCUSSED DISCHARGE INFORMATION WITH HER INCLUDING HOME CARE, MEDICATIONS, AND FOLLOW UP APPOINTMENT WITH PODIETRY. DISCUSSED GETTING A PCP AND GETTING ESTABLISHED WITH THEM ALLA. NO QUESTIONS AT THIS TIME, IV ACCESS REMOVED DURING DC INSTRUCTIONS, PT DECLINDED WC ESCORT AND LEFT AMBULATORY.
[2024-03-17] MEDS ORDERED: ACET325 PO (10:06)
[2024-03-17] MEDS ORDERED: BUSP10 PO (10:07)
[2024-03-17] MEDS ORDERED: ONDA4ODT MM (10:08)
[2024-03-17] MEDS ORDERED: SERT25 PO (10:13)
== END 2024-03-14 12:52 | disposition home or self-care (01) | DRG 638 ==
LOC: ER 14:39 → ERHOLD 20:47 → SURS 20:47 → ERHOLD 20:48 → SURS 03-11 12:19
PROVIDERS: Nurse Practitioner Acute Care; Physician Assistant; ADMIT Student in an Organized Health Care Education/Training Program
DX: E11.621 Type 2 diabetes mellitus with foot ulcer (principal); E87.1 Hypo-osmolality and hyponatremia; L97.429 Non-pressure chronic ulcer of left heel and midfoot with unspecified severity; L03.116 Cellulitis of left lower limb; Z68.42 Body mass index [BMI] 45.0-49.9, adult; E66.01 Morbid (severe) obesity due to excess calories; G47.33 Obstructive sleep apnea (adult) (pediatric); F32.A Depression, unspecified; L85.9 Epidermal thickening, unspecified; E11.40 Type 2 diabetes mellitus with diabetic neuropathy, unspecified; F41.9 Anxiety disorder, unspecified; G43.909 Migraine, unspecified, not intractable, without status migrainosus; Z86.14 Personal history of Methicillin resistant Staphylococcus aureus infection; Z86.711 Personal history of pulmonary embolism; Z89.421 Acquired absence of other right toe(s); Z89.411 Acquired absence of right great toe; Z88.2 Allergy status to sulfonamides; Z88.8 Allergy status to other drugs, medicaments and biological substances; Z91.018 Allergy to other foods; Z79.4 Long term (current) use of insulin; Z79.899 Other long term (current) drug therapy; Z91.148 Patient's other noncompliance with medication regimen for other reason; Z90.49 Acquired absence of other specified parts of digestive tract; Z98.890 Other specified postprocedural states; Z87.891 Personal history of nicotine dependence
CPT/HCPCS: 36415; 73721; 80053; 80202; 82947; 83036; 83605; 83735; 85025; 85610; 85651; 86140; 96365; 96375; 99285-25; A9270; C1751; J0696; J1815; J2270; J3370; J7030; J7040; J7050

== ENCOUNTER 2024-04-21 20:20 | Emergency (ER) | payer OTHER ==
[~2024-04-21] VITALS: Ht 172.7 cm; Wt 149.7 kg
[~2024-04-21 20:20] MED LIST changes: +ACET325 PO; +BUSP10 PO; +GABA300 PO; +SERT25 PO
[2024-04-21 20:58] LABS: BASOPHILS ABSOLUTE AUTO 0.02 K/mm3 (0.00-0.23); BASOPHILS PERCENT AUTO 0 % (0-2); EOSINOPHILS ABSOLUTE AUTO 0.24 K/mm3 (0.00-0.68); EOSINOPHILS PERCENT AUTO 4 % (0-6); Hematocrit 36.1 % (33.0-51.0); Hemoglobin 12.2 g/dL (11.5-16.0); IMMATURE GRAN ABSOLUTE AUTO 0.02 K/mm3 (0.00-0.10); IMMATURE GRAN PERCENT AUTO 0 % (0-1); LYMPHOCYTES ABSOLUTE AUTO 1.92 K/mm3 (0.84-5.20); LYMPHOCYTES PERCENT AUTO 28 % (21-46); MONOCYTES ABSOLUTE AUTO 0.51 K/mm3 (0.16-1.47); MONOCYTES PERCENT AUTO 7 % (4-13); Mean Corpuscular HGB 30.3 pg (26.0-34.0); Mean Corpuscular HGB Conc 33.8 g/dL (31.5-36.5); Mean Corpuscular Volume 90 fL (80-100); Mean Platelet Volume 9.7 fL (9.1-12.4); NEUTROPHILS ABSOLUTE AUTO 4.16 K/mm3 (1.96-9.15); NEUTROPHILS PERCENT AUTO 61 % (41-73); Platelet Count 205 K/mm3 (150-400); RDW Coefficient Variation 12.8 % (11.7-14.2); RDW Standard Deviation 42.4 fL (35.1-46.3); Red Blood Cell Count 4.02 M/mm3 (3.80-5.20); White Blood Cell Count 6.87 K/mm3 (4.00-11.30)
[2024-04-21 21:33] LABS: Albumin, Blood 3.2 g/dL (3.4-5.0); Albumin/Globulin Ratio 0.8 (0.8-1.8); Bilirubin, Total 1.8 mg/dL (0.1-1.0); Bun/Creatinine Ratio 34.9 (12.0-20.0); Calcium, Blood 9.2 mg/dL (8.5-10.1); Creatinine, Blood 0.6 mg/dL (0.40-1.00); Globulin, Blood 3.9 g/dL (2.2-4.0); Potassium, Blood 3.9 mmol/L (3.5-5.5); Total Protein, Blood 7.1 g/dL (6.4-8.2)
[2024-04-21] MEDS ORDERED: Furosemide 10 MG/ML 4ML Vial IV ONE (23:35)
[2024-04-22 00:04] LABS: Base Excess Venous 2.6 mmol/L; Bicarbonate Venous 26.5 mmol/L (24.0-30.0); PCO2 Venous 41.5 mmHg (38-42); pH Blood Venous 7.42 (7.34-7.37)
[2024-04-22 00:15] VITALS: BP 100/81
[2024-04-22] MEDS ORDERED: FURO20 PO (00:40)
== END 2024-04-22 00:58 | disposition home or self-care (01) ==
LOC: ER 20:20
PROVIDERS: Emergency Medicine; Student in an Organized Health Care Education/Training Program
DX: M79.89 Other specified soft tissue disorders (principal); J45.909 Unspecified asthma, uncomplicated; G47.33 Obstructive sleep apnea (adult) (pediatric); E11.43 Type 2 diabetes mellitus with diabetic autonomic (poly)neuropathy; G43.909 Migraine, unspecified, not intractable, without status migrainosus; Z87.891 Personal history of nicotine dependence; Z79.899 Other long term (current) drug therapy; Z79.4 Long term (current) use of insulin; Z91.018 Allergy to other foods; Z91.048 Other nonmedicinal substance allergy status; Z88.1 Allergy status to other antibiotic agents; Z88.8 Allergy status to other drugs, medicaments and biological substances
CPT/HCPCS: 71046; 80053; 82010; 82803; 83880; 85025; 93005; 93010; 93970; 96374; 99284-25; J1940

== ENCOUNTER 2024-07-03 12:11 | Emergency (ER) | payer OTHER ==
[~2024-07-03] VITALS: Ht 172.7 cm; Wt 149.7 kg
[2024-07-03 12:14] VITALS: BP 169/129
[2024-07-03] MEDS ORDERED: Ondansetron HCl 2 MG / ML 2ML Vial IV ONE (12:30)
[2024-07-03 12:45] LABS: BASOPHILS ABSOLUTE AUTO 0.03 K/mm3 (0.00-0.23); BASOPHILS PERCENT AUTO 0 % (0-2); EOSINOPHILS ABSOLUTE AUTO 0.03 K/mm3 (0.00-0.68); EOSINOPHILS PERCENT AUTO 0 % (0-6); Hematocrit 38.1 % (33.0-51.0); Hemoglobin 12.6 g/dL (11.5-16.0); IMMATURE GRAN ABSOLUTE AUTO 0.05 K/mm3 (0.00-0.10); IMMATURE GRAN PERCENT AUTO 0 % (0-1); LYMPHOCYTES ABSOLUTE AUTO 0.68 K/mm3 (0.84-5.20); LYMPHOCYTES PERCENT AUTO 5 % (21-46); MONOCYTES ABSOLUTE AUTO 0.59 K/mm3 (0.16-1.47); MONOCYTES PERCENT AUTO 4 % (4-13); Mean Corpuscular HGB 29.6 pg (26.0-34.0); Mean Corpuscular HGB Conc 33.1 g/dL (31.5-36.5); Mean Corpuscular Volume 89 fL (80-100); Mean Platelet Volume 9.7 fL (9.1-12.4); NEUTROPHILS ABSOLUTE AUTO 11.91 K/mm3 (1.96-9.15); NEUTROPHILS PERCENT AUTO 90 % (41-73); Platelet Count 186 K/mm3 (150-400); RDW Standard Deviation 42.5 fL (35.1-46.3); Red Blood Cell Count 4.26 M/mm3 (3.80-5.20); White Blood Cell Count 13.29 K/mm3 (4.00-11.30)
[2024-07-03 13:04] LABS: Albumin, Blood 3.7 g/dL (3.4-5.0); Albumin/Globulin Ratio 0.9 (0.8-1.8); Bilirubin, Total 1.1 mg/dL (0.1-1.0); Bun/Creatinine Ratio 26.6 (12.0-20.0); Calcium, Blood 9.1 mg/dL (8.5-10.1); Creatinine, Blood 0.49 mg/dL (0.40-1.00); Globulin, Blood 4.3 g/dL (2.2-4.0); Potassium, Blood 4.1 mmol/L (3.5-5.5)
[2024-07-03] MEDS ORDERED: Droperidol 5 mg/2 ml Vial IV ONE (14:55)
[2024-07-03] MEDS ORDERED: Lactated Ringer's 1,000 ML IV ONE (14:55)
[2024-07-03] MEDS ORDERED: Prochlorperazine Edisylate 10 mg Vial IV ONE (15:25)
[2024-07-03] MEDS ORDERED: Lidocaine 2% Viscous Soln 15 ML UDC PO ONE ×2 (15:55→17:40)
[2024-07-03] MEDS ORDERED: Mag Hydrox/AL Hydrox/Simeth 30 ML UDC PO ONE ×2 (15:55→17:40)
[2024-07-03] MEDS ORDERED: Atropine/Scopalam/Hyoscam/PB 5 ML UDC PO ONE ×2 (15:55→17:40)
[2024-07-03] MEDS ORDERED: LORazepam 2 MG/ML 1ML Injection IV ONE (16:45)
[2024-07-03] MEDS ORDERED: Ondansetron 4 MG SoluTab SL ONE (17:40)
[2024-07-03] MEDS ORDERED: ONDA4ODT MM (17:48)
[2024-07-03] MEDS ORDERED: RX Prepack 2 Tabs Ondansetron ODT 4MG UD ONE (17:50)
== END 2024-07-03 18:02 | disposition home or self-care (01) ==
LOC: ER 12:11
PROVIDERS: Emergency Medicine
DX: E11.43 Type 2 diabetes mellitus with diabetic autonomic (poly)neuropathy (principal); K31.84 Gastroparesis; K29.70 Gastritis, unspecified, without bleeding; J45.909 Unspecified asthma, uncomplicated; G47.33 Obstructive sleep apnea (adult) (pediatric); G43.909 Migraine, unspecified, not intractable, without status migrainosus; Z87.891 Personal history of nicotine dependence; Z91.018 Allergy to other foods; Z88.8 Allergy status to other drugs, medicaments and biological substances; Z91.048 Other nonmedicinal substance allergy status; Z88.2 Allergy status to sulfonamides; Z88.1 Allergy status to other antibiotic agents; Z79.4 Long term (current) use of insulin; Z79.899 Other long term (current) drug therapy
CPT/HCPCS: 80053; 83690; 85025; 96361; 96374; 96375; 99284-25; A9270; J0780; J1790; J2060; J2405; J7120

== ENCOUNTER 2024-08-21 10:27 | Inpatient (IN) | payer OTHER ==
[~2024-08-21] VITALS: Ht 172.7 cm; Wt 151.2 kg
[~2024-08-21 10:27] MED LIST changes: +INSULANPEN INJ
[2024-08-21 11:22] LABS: BASOPHILS ABSOLUTE AUTO 0.03 K/mm3 (0.00-0.23); BASOPHILS PERCENT AUTO 1 % (0-2); EOSINOPHILS ABSOLUTE AUTO 0.25 K/mm3 (0.00-0.68); EOSINOPHILS PERCENT AUTO 4 % (0-6); Hematocrit 39.7 % (33.0-51.0); Hemoglobin 12.9 g/dL (11.5-16.0); IMMATURE GRAN ABSOLUTE AUTO 0.04 K/mm3 (0.00-0.10); IMMATURE GRAN PERCENT AUTO 1 % (0-1); LYMPHOCYTES ABSOLUTE AUTO 1.35 K/mm3 (0.84-5.20); LYMPHOCYTES PERCENT AUTO 21 % (21-46); MONOCYTES ABSOLUTE AUTO 0.33 K/mm3 (0.16-1.47); MONOCYTES PERCENT AUTO 5 % (4-13); Mean Corpuscular HGB Conc 32.5 g/dL (31.5-36.5); Mean Corpuscular Volume 94 fL (80-100); NEUTROPHILS ABSOLUTE AUTO 4.35 K/mm3 (1.96-9.15); NEUTROPHILS PERCENT AUTO 69 % (41-73); NRBC ABSOLUTE 0.00 K/mm3 (0.00-0.02); NRBC Auto 0.0 /100 WBC (0.0-0.2); Platelet Count 172 K/mm3 (150-400); RDW Coefficient Variation 14.4 % (11.7-14.2); RDW Standard Deviation 49.7 fL (35.1-46.3)
[2024-08-21] MEDS ORDERED: Vancomycin (Pharmacy Consult) IV PRN (11:40)
[2024-08-21] MEDS ORDERED: CefTRIAXone Sodium 1,000 MG in NS 100 ML IV ONE (11:45)
[2024-08-21 11:48] LABS: Alanine Aminotransfer (ALT/SGP 15.0 U/L (12-78); Albumin, Blood 3.2 g/dL (3.4-5.0); Albumin/Globulin Ratio 0.7 (0.8-1.8); Anion Gap 9.0 mmol/L (3-11); Aspartate Aminotrans (AST/SGOT 14.0 U/L (12-37); Bilirubin, Total 0.6 mg/dL (0.1-1.0); Blood Urea Nitrogen 23.0 mg/dL (8-24); CO2, Blood 26.0 mmol/L (21-32); Calcium, Blood 8.5 mg/dL (8.5-10.1); Chloride, Blood 103.0 mmol/L (98-108); Creatinine, Blood 0.62 mg/dL (0.40-1.00); Globulin, Blood 4.5 g/dL (2.2-4.0); Glucose, Blood 349.0 mg/dL (70-99); Potassium, Blood 4.9 mmol/L (3.5-5.5); Sodium, Blood 133.0 mmol/L (136-145); Total Protein, Blood 7.7 g/dL (6.4-8.2)
[2024-08-21] MEDS ORDERED: NS IV ONE (12:05)
[2024-08-21] MEDS ORDERED: VANCOMYCIN HCL IV ONE (12:05)
[2024-08-21] MEDS ORDERED: DiphenhydrAMINE HCl 50 MG/ML 1ML Vial IV ONE (12:50)
[2024-08-21] MEDS ORDERED: Ondansetron 4 MG SoluTab MM PRN (14:35)
[2024-08-21] MEDS ORDERED: Vancomycin (Pharmacy Consult) IV SCH (14:40)
[2024-08-21] MEDS ORDERED: Magnesium Hydroxide Conc 10 ML UDC PO PRN (14:45)
[2024-08-21] MEDS ORDERED: Metoclopramide HCl 5MG / ML 2ML Vial IV PRN (14:45)
[2024-08-21] MEDS ORDERED: LORazepam 2 MG/ML 1ML Injection IV ONE (15:00)
[2024-08-21] MEDS ORDERED: Insulin Glargine-Yfgn 100 Unit/mL 3 ML SYR SC SCH (15:00)
[2024-08-21] MEDS ORDERED: Insulin Human Lispro 100 Units/ML 3ML Syringe SC SCH (16:30)
[2024-08-21] MEDS ORDERED: Polyethylene Glycol 3350 17 gm PO PRN (17:00)
[2024-08-21] MEDS ORDERED: FURO20 PO (18:17)
[2024-08-21] MEDS ORDERED: VISTARIL PO (18:20)
[2024-08-21 18:21] VITALS: BP 149/100
[2024-08-21 19:10] VITALS: BP 129/69
[2024-08-21] MEDS ORDERED: Lactobacil 2-S.Thermo-Bifido 1 1 Cap PO SCH (21:00)
[2024-08-22] MEDS ORDERED: NS 250 ML IV PRN (00:05)
[2024-08-22 00:41] VITALS: BP 128/85
--- NOTE | 2024-08-22 05:31 | NUR ---
SHIFT SUMMARY PATIENT IS ALERT AND ORIENTED. PATIENT HAS HAD NO ACUTE EVENTS THIS SHIFT. PATIENT HAS HAD A GREAT DEAL OF ANXIETY. MEDICATED PER EMAR WITH MILD SUCCESS. PATIENT HAS HAD PAIN THIS SHIFT AND MEDICATED PER EMAR. PATIENT HAS HAD NO COMPLAINTS OF SOB, NAUSEA, OR VOMITTING THIS SHIFT. CALL LIGHT IN PLACE. PATIENT HAS BEEN ABLE TO MAKE NEEDS KNOWN.
[2024-08-22 06:20] LABS: BASOPHILS ABSOLUTE AUTO 0.02 K/mm3 (0.00-0.23); BASOPHILS PERCENT AUTO 0 % (0-2); EOSINOPHILS ABSOLUTE AUTO 0.18 K/mm3 (0.00-0.68); EOSINOPHILS PERCENT AUTO 2 % (0-6); Hematocrit 36.9 % (33.0-51.0); Hemoglobin 12.3 g/dL (11.5-16.0); IMMATURE GRAN ABSOLUTE AUTO 0.03 K/mm3 (0.00-0.10); IMMATURE GRAN PERCENT AUTO 0 % (0-1); LYMPHOCYTES ABSOLUTE AUTO 1.01 K/mm3 (0.84-5.20); LYMPHOCYTES PERCENT AUTO 11 % (21-46); MONOCYTES ABSOLUTE AUTO 0.18 K/mm3 (0.16-1.47); MONOCYTES PERCENT AUTO 2 % (4-13); Mean Corpuscular HGB Conc 33.3 g/dL (31.5-36.5); Mean Corpuscular Volume 91 fL (80-100); NEUTROPHILS ABSOLUTE AUTO 7.97 K/mm3 (1.96-9.15); NEUTROPHILS PERCENT AUTO 85 % (41-73); NRBC ABSOLUTE 0.00 K/mm3 (0.00-0.02); NRBC Auto 0.0 /100 WBC (0.0-0.2); Platelet Count 177 K/mm3 (150-400); RDW Coefficient Variation 14.0 % (11.7-14.2); RDW Standard Deviation 47.1 fL (35.1-46.3)
[2024-08-22 06:40] LABS: Alanine Aminotransfer (ALT/SGP 11.0 U/L (12-78); Albumin, Blood 2.4 g/dL (3.4-5.0); Albumin/Globulin Ratio 0.7 (0.8-1.8); Anion Gap 8.0 mmol/L (3-11); Aspartate Aminotrans (AST/SGOT 14.0 U/L (12-37); Bilirubin, Total 0.8 mg/dL (0.1-1.0); Blood Urea Nitrogen 15.0 mg/dL (8-24); CO2, Blood 25.0 mmol/L (21-32); Calcium, Blood 8.2 mg/dL (8.5-10.1); Chloride, Blood 103.0 mmol/L (98-108); Creatinine, Blood 0.42 mg/dL (0.40-1.00); Globulin, Blood 3.6 g/dL (2.2-4.0); Glucose, Blood 292.0 mg/dL (70-99); Potassium, Blood 4.1 mmol/L (3.5-5.5); Sodium, Blood 132.0 mmol/L (136-145); Total Protein, Blood 6.0 g/dL (6.4-8.2)
[2024-08-22 07:23] VITALS: BP 122/98
[2024-08-22] MEDS ORDERED: CefTRIAXone Sodium 2,000 MG in NS 100 ML IV SCH (09:00)
[2024-08-22] MEDS ORDERED: Enoxaparin 40 MG/0.4 ML SYR SC SCH ×2 (09:00→21:00)
[2024-08-22 16:10] VITALS: BP 132/90
--- NOTE | 2024-08-22 16:24 | NUR ---
SHIFT SUMMARY PT AOX4, COOPERATIVE, ABLE TO MAKE NEEDS KNONW. PT IS IND IN ROOM. TOLERATING IV AND PO MEDICATION. HAS RIGHT UPPER ARM POWERGLIDE AFTER MULTIPLE ATTEMPTS AT IVS.POSSIBLE DC IN 1 OR 2 DAYS FOLLOWING INPATIENT ANTIBIOTICS. BED IN LOWEST POSITION, CALL LIGHT WITHIN REACH.
[2024-08-22 19:06] VITALS: BP 128/77
[2024-08-23 00:09] LABS: Vancomycin, Trough 22.6 ug/mL (5.0-10.0)
[2024-08-23 02:20] VITALS: BP 132/73
--- NOTE | 2024-08-23 04:19 | NUR ---
SHIFT SUMMARY PATIENT IS ALERT AND ORIENTED. PATIENT HAS HAD NO ACUTE EVENTS THIS SHIFT. PATIENT HAS REPORTED ANXIETY THIS SHIFT AND MEDICATED PER EMAR. PATIENT HAS NO COMPLAINTS OF PAIN, NAUSEA, SOB OR VOMITTING THIS SHIFT. VITAL SIGNS REVIEWED. ABX INFUSED ORDERED. BED IN LOCKED AND LOWEST POSITION. CALL LIGHT IN PLACE.
[2024-08-23 06:22] LABS: BASOPHILS ABSOLUTE AUTO 0.01 K/mm3 (0.00-0.23); BASOPHILS PERCENT AUTO 0 % (0-2); EOSINOPHILS ABSOLUTE AUTO 0.20 K/mm3 (0.00-0.68); EOSINOPHILS PERCENT AUTO 4 % (0-6); Hematocrit 30.8 % (33.0-51.0); Hemoglobin 10.3 g/dL (11.5-16.0); IMMATURE GRAN ABSOLUTE AUTO 0.02 K/mm3 (0.00-0.10); IMMATURE GRAN PERCENT AUTO 0 % (0-1); LYMPHOCYTES ABSOLUTE AUTO 1.38 K/mm3 (0.84-5.20); LYMPHOCYTES PERCENT AUTO 29 % (21-46); MONOCYTES ABSOLUTE AUTO 0.27 K/mm3 (0.16-1.47); MONOCYTES PERCENT AUTO 6 % (4-13); Mean Corpuscular HGB Conc 33.4 g/dL (31.5-36.5); Mean Corpuscular Volume 89 fL (80-100); NEUTROPHILS ABSOLUTE AUTO 2.97 K/mm3 (1.96-9.15); NEUTROPHILS PERCENT AUTO 61 % (41-73); NRBC ABSOLUTE 0.00 K/mm3 (0.00-0.02); NRBC Auto 0.0 /100 WBC (0.0-0.2); Platelet Count 165 K/mm3 (150-400); RDW Coefficient Variation 14.0 % (11.7-14.2); RDW Standard Deviation 45.4 fL (35.1-46.3)
[2024-08-23 06:55] LABS: Alanine Aminotransfer (ALT/SGP 12.0 U/L (12-78); Albumin, Blood 2.5 g/dL (3.4-5.0); Albumin/Globulin Ratio 0.8 (0.8-1.8); Anion Gap 6.0 mmol/L (3-11); Aspartate Aminotrans (AST/SGOT 10.0 U/L (12-37); Bilirubin, Total 0.4 mg/dL (0.1-1.0); Blood Urea Nitrogen 8.0 mg/dL (8-24); CO2, Blood 30.0 mmol/L (21-32); Calcium, Blood 8.1 mg/dL (8.5-10.1); Chloride, Blood 106.0 mmol/L (98-108); Creatinine, Blood 0.61 mg/dL (0.40-1.00); Globulin, Blood 3.3 g/dL (2.2-4.0); Glucose, Blood 159.0 mg/dL (70-99); Potassium, Blood 3.8 mmol/L (3.5-5.5); Sodium, Blood 138.0 mmol/L (136-145); Total Protein, Blood 5.8 g/dL (6.4-8.2)
[2024-08-23 07:28] VITALS: BP 153/86
[2024-08-23] MEDS ORDERED: ZOLOFT25 MG PO (13:28)
[2024-08-23] MEDS ORDERED: BUSP10 PO (13:28)
[2024-08-23] MEDS ORDERED: DOXY100 PO (13:29)
--- NOTE | 2024-08-23 14:10 | NUR ---
DISCHARGE PT AOX4, COOPERATIVE, ABLE TO MAKE NEEDS KNOWN. PT IND IN ROOM AT BASELINE. EMOTIONALLY UNSTABLE. TOLERATED PO AND IV MEDS. THIS RN WENT OVER DC PAPERWORK. LAZARO POWERGLANDREZ DC'D WITHOUT COMPLICATIONS. PT OPTED TO AMBULATE OUT OF HOSPITAL IND. WHEELCHAIR WAS OFFERED TO PT MULTIPLE TIMES, EACH TIME WAS A REFUSAL. BELONGINGS WENT WITH PT.
== END 2024-08-23 14:00 | disposition home or self-care (01) | DRG 603 ==
LOC: ER 10:27 → ERHOLD 10:28 → MEDS 10:28 → ERHOLD 10:28 → MEDS 18:06
PROVIDERS: Family Medicine; Student in an Organized Health Care Education/Training Program; ADMIT Hospitalist
DX: L03.116 Cellulitis of left lower limb (principal); E87.1 Hypo-osmolality and hyponatremia; L97.419 Non-pressure chronic ulcer of right heel and midfoot with unspecified severity; L97.429 Non-pressure chronic ulcer of left heel and midfoot with unspecified severity; Z68.43 Body mass index [BMI] 50.0-59.9, adult; Z59.02 Unsheltered homelessness; E11.40 Type 2 diabetes mellitus with diabetic neuropathy, unspecified; G47.33 Obstructive sleep apnea (adult) (pediatric); R01.2 Other cardiac sounds; E66.9 Obesity, unspecified; E11.621 Type 2 diabetes mellitus with foot ulcer; F41.9 Anxiety disorder, unspecified; I10 Essential (primary) hypertension; E11.65 Type 2 diabetes mellitus with hyperglycemia; F32.A Depression, unspecified; L97.521 Non-pressure chronic ulcer of other part of left foot limited to breakdown of skin; T38.3X6A Underdosing of insulin and oral hypoglycemic [antidiabetic] drugs, initial encounter; Z91.138 Patient's unintentional underdosing of medication regimen for other reason; Z88.2 Allergy status to sulfonamides; Z86.711 Personal history of pulmonary embolism; Z79.4 Long term (current) use of insulin; Z86.14 Personal history of Methicillin resistant Staphylococcus aureus infection; Z89.421 Acquired absence of other right toe(s)
CPT/HCPCS: 36415; 73630; 80053; 80202; 82947; 85025; 85651; 86140; 93306; 93971; 96365; 96366; 96367; 96375; 99284-25; A9270; C1751; G0378; J0696; J1200; J1650; J1815; J2470; J3370; J7040; J7050; Q0177

== ENCOUNTER 2024-09-01 11:17 | Emergency (ER) | payer OTHER ==
[~2024-09-01] VITALS: Ht 172.7 cm; Wt 149.7 kg
[~2024-09-01 11:17] MED LIST changes: +Hydroxyzine HCl50 MG PO; -INSULANPEN INJ; +ZOLOFT25 MG PO
[2024-09-01 11:21] VITALS: BP 129/71
[2024-09-01] MEDS ORDERED: Ondansetron HCl 2 MG / ML 2ML Vial IV ONE (11:45)
[2024-09-01 12:18] LABS: BASOPHILS ABSOLUTE AUTO 0.02 K/mm3 (0.00-0.23); BASOPHILS PERCENT AUTO 0 % (0-2); EOSINOPHILS ABSOLUTE AUTO 0.15 K/mm3 (0.00-0.68); EOSINOPHILS PERCENT AUTO 2 % (0-6); Hematocrit 39.1 % (33.0-51.0); Hemoglobin 13.3 g/dL (11.5-16.0); IMMATURE GRAN ABSOLUTE AUTO 0.03 K/mm3 (0.00-0.10); IMMATURE GRAN PERCENT AUTO 0 % (0-1); LYMPHOCYTES ABSOLUTE AUTO 1.69 K/mm3 (0.84-5.20); LYMPHOCYTES PERCENT AUTO 17 % (21-46); MONOCYTES ABSOLUTE AUTO 0.50 K/mm3 (0.16-1.47); MONOCYTES PERCENT AUTO 5 % (4-13); Mean Corpuscular HGB Conc 34.0 g/dL (31.5-36.5); Mean Corpuscular Volume 88 fL (80-100); NEUTROPHILS ABSOLUTE AUTO 7.87 K/mm3 (1.96-9.15); NEUTROPHILS PERCENT AUTO 77 % (41-73); NRBC ABSOLUTE 0.00 K/mm3 (0.00-0.02); NRBC Auto 0.0 /100 WBC (0.0-0.2); Platelet Count 232 K/mm3 (150-400); RDW Coefficient Variation 14.3 % (11.7-14.2); RDW Standard Deviation 46.0 fL (35.1-46.3)
[2024-09-01 12:46] LABS: Alanine Aminotransfer (ALT/SGP 21.0 U/L (12-78); Albumin, Blood 3.6 g/dL (3.4-5.0); Albumin/Globulin Ratio 0.8 (0.8-1.8); Anion Gap 9.0 mmol/L (3-11); Aspartate Aminotrans (AST/SGOT 19.0 U/L (12-37); Bilirubin, Total 1.1 mg/dL (0.1-1.0); Blood Urea Nitrogen 20.0 mg/dL (8-24); CO2, Blood 28.0 mmol/L (21-32); Calcium, Blood 9.3 mg/dL (8.5-10.1); Chloride, Blood 100.0 mmol/L (98-108); Creatinine, Blood 0.55 mg/dL (0.40-1.00); Globulin, Blood 4.5 g/dL (2.2-4.0); Glucose, Blood 401.0 mg/dL (70-99); Potassium, Blood 4.0 mmol/L (3.5-5.5); Sodium, Blood 133.0 mmol/L (136-145); Total Protein, Blood 8.1 g/dL (6.4-8.2)
[2024-10-14] MEDS ORDERED: ONDA4ODT SL (11:48)
== END 2024-09-01 14:18 | disposition left against medical advice (07) ==
LOC: ER 11:17
PROVIDERS: Emergency Medicine
DX: R42 Dizziness and giddiness (principal); R79.1 Abnormal coagulation profile; R11.2 Nausea with vomiting, unspecified; Z53.21 Procedure and treatment not carried out due to patient leaving prior to being seen by health care provider
CPT/HCPCS: 80053; 85025; 85379; 93005; 93010; 96374; 99282-25; J2405

== ENCOUNTER 2024-10-31 06:59 | Inpatient (IN) | payer OTHER ==
[~2024-10-31] VITALS: Ht 172.7 cm; Wt 161.0 kg
[2024-10-31] MEDS ORDERED: Ketorolac Tromethamine 15mg Vial IV ONE (08:35)
[2024-10-31] MEDS ORDERED: NS 1,000 ML IV SCH (08:35)
[2024-10-31 08:36] LABS: BASOPHILS ABSOLUTE AUTO 0.03 K/mm3 (0.00-0.23); BASOPHILS PERCENT AUTO 0 % (0-2); EOSINOPHILS ABSOLUTE AUTO 0.44 K/mm3 (0.00-0.68); EOSINOPHILS PERCENT AUTO 5 % (0-6); Hematocrit 38.5 % (33.0-51.0); Hemoglobin 12.4 g/dL (11.5-16.0); IMMATURE GRAN ABSOLUTE AUTO 0.04 K/mm3 (0.00-0.10); IMMATURE GRAN PERCENT AUTO 1 % (0-1); LYMPHOCYTES ABSOLUTE AUTO 1.68 K/mm3 (0.84-5.20); LYMPHOCYTES PERCENT AUTO 20 % (21-46); MONOCYTES ABSOLUTE AUTO 0.60 K/mm3 (0.16-1.47); MONOCYTES PERCENT AUTO 7 % (4-13); Mean Corpuscular HGB Conc 32.2 g/dL (31.5-36.5); Mean Corpuscular Volume 94 fL (80-100); NEUTROPHILS ABSOLUTE AUTO 5.80 K/mm3 (1.96-9.15); NEUTROPHILS PERCENT AUTO 68 % (41-73); NRBC ABSOLUTE 0.00 K/mm3 (0.00-0.02); NRBC Auto 0.0 /100 WBC (0.0-0.2); Platelet Count 189 K/mm3 (150-400); RDW Coefficient Variation 13.6 % (11.7-14.2); RDW Standard Deviation 46.9 fL (35.1-46.3)
[2024-10-31 08:50] LABS: Alanine Aminotransfer (ALT/SGP 15.0 U/L (12-78); Albumin, Blood 3.2 g/dL (3.4-5.0); Albumin/Globulin Ratio 0.7 (0.8-1.8); Anion Gap 10.0 mmol/L (3-11); Aspartate Aminotrans (AST/SGOT 14.0 U/L (12-37); Bilirubin, Total 0.8 mg/dL (0.1-1.0); Blood Urea Nitrogen 22.0 mg/dL (8-24); CO2, Blood 25.0 mmol/L (21-32); Calcium, Blood 8.9 mg/dL (8.5-10.1); Chloride, Blood 100.0 mmol/L (98-108); Creatinine, Blood 0.67 mg/dL (0.40-1.00); Globulin, Blood 4.5 g/dL (2.2-4.0); Glucose, Blood 344.0 mg/dL (70-99); Potassium, Blood 4.6 mmol/L (3.5-5.5); Sodium, Blood 130.0 mmol/L (136-145); Total Protein, Blood 7.7 g/dL (6.4-8.2)
[2024-10-31] MEDS ORDERED: Vancomycin (Pharmacy Consult) IV PRN (10:55)
[2024-10-31] MEDS ORDERED: Vancomycin HCL 2,500 MG in NS 500 ML IV ONE (11:15)
[2024-10-31] MEDS ORDERED: Ondansetron HCl 2 MG / ML 2ML Vial IV ONE (11:45)
[2024-10-31] MEDS ORDERED: Cefepime HCl 2,000 MG in NS 100 ML IV SCH (12:52)
[2024-10-31] MEDS ORDERED: Metoclopramide HCl 5MG / ML 2ML Vial IV ONE (13:00)
[2024-10-31] MEDS ORDERED: Metoclopramide HCl 5MG / ML 2ML Vial IV PRN ×2 (13:00→14:10)
[2024-10-31] MEDS ORDERED: Ondansetron HCl 2 MG / ML 2ML Vial IV PRN (13:25)
[2024-10-31] MEDS ORDERED: LORazepam 2 MG/ML 1ML Injection IV ONE (13:30)
[2024-10-31] MEDS ORDERED: Vancomycin (Pharmacy Consult) IV SCH (13:35)
[2024-10-31] MEDS ORDERED: NS 1,000 ML IV ONE ×2 (13:50→14:00)
[2024-10-31] MEDS ORDERED: Piperacillin/Tazobactam Sod 4.5 GM in NS 100 ML IV ONE ×2 (14:25→18:05)
[2024-10-31] MEDS ORDERED: Insulin Glargine-Yfgn 100 Unit/mL 3 ML SYR SC SCH (15:00)
[2024-10-31] MEDS ORDERED: Enoxaparin 40 MG/0.4 ML SYR SC SCH (15:47)
[2024-10-31 16:49] VITALS: BP 136/87
[2024-10-31] MEDS ORDERED: Enoxaparin 40 MG/0.4 ML SYR SC ONE (17:00)
--- NOTE | 2024-10-31 17:35 | NUR ---
DR WALKER TOOK LAB SAMPLE FROM 5TH METASARSAL HEAD ON LEFT FOOT I SENT TO LAB
--- NOTE | 2024-10-31 17:44 | NUR ---
SHIFT SUMMARY RECIEVED PATIENT FROM ED. PODIATRY CONSULTED AND ADVISED PATIENT TO STAY OFF OF HER FEET, DOC RECOMMENDED DRY WRAP. PATIENT ANXIOUS IN ROOM. PATIENT WANTS TO AMBULATE OUTSIDE ROOM, PATIENT ADVISED DUE TO MRSA STATUS WITH CONTACT PRECAUTIONS SHE SHOULD NOT AMBULATE IN THE HALLWAY. PATIENT A&O X4. PODIATRY ADVISED NPO AFTER MIDNIGHT FOR SURGERY ON THE LEFT 5 METATARSAL END. PHOTOS IN CHART OF ALL WOUNDS.
--- NOTE | 2024-10-31 18:20 | NUR ---
NOTIFIED DR SALES N/S AND ANCA LATE R/T LATE ADMIT FROM ER. REORDERED ZOSYN TO MAKE DUE NOW.
[2024-10-31 19:36] VITALS: BP 129/73
[2024-10-31] MEDS ORDERED: Insulin Human Lispro 100 Units/ML 3ML Syringe SC SCH (21:00)
[2024-11-01] MEDS ORDERED: Piperacillin/Tazobactam Sod 4.5 GM in NS 100 ML IV SCH
[2024-11-01 04:48] LABS: BASOPHILS ABSOLUTE AUTO 0.03 K/mm3 (0.00-0.23); BASOPHILS PERCENT AUTO 0 % (0-2); EOSINOPHILS ABSOLUTE AUTO 0.06 K/mm3 (0.00-0.68); EOSINOPHILS PERCENT AUTO 1 % (0-6); Hematocrit 34.0 % (33.0-51.0); Hemoglobin 11.2 g/dL (11.5-16.0); IMMATURE GRAN ABSOLUTE AUTO 0.03 K/mm3 (0.00-0.10); IMMATURE GRAN PERCENT AUTO 0 % (0-1); LYMPHOCYTES ABSOLUTE AUTO 1.20 K/mm3 (0.84-5.20); LYMPHOCYTES PERCENT AUTO 13 % (21-46); MONOCYTES ABSOLUTE AUTO 0.54 K/mm3 (0.16-1.47); MONOCYTES PERCENT AUTO 6 % (4-13); Mean Corpuscular HGB Conc 32.9 g/dL (31.5-36.5); NEUTROPHILS ABSOLUTE AUTO 7.75 K/mm3 (1.96-9.15); NEUTROPHILS PERCENT AUTO 81 % (41-73); NRBC ABSOLUTE 0.00 K/mm3 (0.00-0.02); NRBC Auto 0.0 /100 WBC (0.0-0.2); Platelet Count 199 K/mm3 (150-400); RDW Coefficient Variation 13.2 % (11.7-14.2); RDW Standard Deviation 43.8 fL (35.1-46.3)
[2024-11-01 04:51] LABS: Mean Corpuscular Volume 89 fL (80-100)
[2024-11-01 05:02] VITALS: BP 114/91
[2024-11-01 05:13] LABS: Alanine Aminotransfer (ALT/SGP 14.0 U/L (12-78); Albumin, Blood 2.8 g/dL (3.4-5.0); Albumin/Globulin Ratio 0.7 (0.8-1.8); Anion Gap 10.0 mmol/L (3-11); Aspartate Aminotrans (AST/SGOT 14.0 U/L (12-37); Bilirubin, Total 1.4 mg/dL (0.1-1.0); Blood Urea Nitrogen 12.0 mg/dL (8-24); CO2, Blood 28.0 mmol/L (21-32); Calcium, Blood 8.3 mg/dL (8.5-10.1); Chloride, Blood 98.0 mmol/L (98-108); Creatinine, Blood 0.54 mg/dL (0.40-1.00); Globulin, Blood 4.0 g/dL (2.2-4.0); Glucose, Blood 324.0 mg/dL (70-99); Potassium, Blood 3.8 mmol/L (3.5-5.5); Sodium, Blood 132.0 mmol/L (136-145); Total Protein, Blood 6.8 g/dL (6.4-8.2)
[2024-11-01] MEDS ORDERED: LORazepam 2 MG/ML 1ML Injection IV ONE (05:20)
--- NOTE | 2024-11-01 06:33 | NUR ---
PT A&OX4, INDEPENDENT IN RM. PT HAS BEEN EXTREMELY ANXIOUS T/O THIS SHIFT, PACING IN THE HALLWAYS AND IN RM, CRYING, TURNING AND ARCHING BODY. DISCUSSED WITH HOSPITALIST TEMAZEPAN WAS GIVEN WAS VERY EFFECTIVE. PT SLEPT FOR SEVERAL HOURS. PT WOKE UP AT 0430 ANXIOUS AGAIN, PT DENIED NEED FOR MEDS. AT 0519 PT REQUESTED ANXIETY MEDICATION RX SHE IMMEDIATELY BEGAN THROWING IT UP, IV ZOFRAN GIVEN RX. DISCUSSED UNCONTROLLED ANXIETY WITH HOSPITALIST NEW ORDERS GIVEN FOR ATIVAN, GIVEN RX. dURING THIS SHIFT PTS POWEGLIDE WOULD NOT FLUSH OR DRAW. IV AGX HELD UNTIL IV ACCESS COULD BE ACCESSED. MOVIE THEATER MANAGER ABLE TO SALVAGE POWERGLIDE. WHEN PT GET ANXIOUS SHE BEGINS VOMITING AND ARCHING HER BODY AND LEGS. PT HAS BEEN NONCOMPLAINT AT TIMES T/O THIS SHIFT WALKING IN THE HALLS BAREFOOT. ME REMOVED ALL DRESSINGS OFF OF FEET AND HAS BEEN TAKING REPEATED SHOWERS FOR COMFORT DUE TO ANXIETY. RN HAD DIFFICULTY WITH HAVING PT SIT STILL LONG ENOUGH TO ALLOW RN TO DO SHIFT ASSESSMENT AND GET HS BLOOD SUGARS.
[2024-11-01 07:40] VITALS: BP 127/72
[2024-11-01] MEDS ORDERED: Insulin Human Lispro 100 Units/ML 3ML Syringe SC ONE (08:00)
--- NOTE | 2024-11-01 08:10 | NUR ---
CALL TO DOC [id number] HYPERGLYCEMIA AT 356 @ 4255 [place]. CALL PLACED TO DOC. THIS RN ADVISED DOC OF THE 20 UNITS LONG ACTING DUE, SHORT ACTING HIGH SLIDING SCALE DUE AT 15 UNITS AND THERE WAS A ONE TIME ORDER FOR 5 UNITS OF THE SHORT ACTING WELL. ADVISED DOC OF PATIENT NPO STATUS DUE TO SURGERY TODAY. DOC ADVISED TO GIVE ONLY 12 OF THE SHORT ACTING AND 20 OF THE LONG, TO RECHECK BLOOD SUGAR AT 0900 AND 1000. THIS RN VERBALIZED ORDERS BACK TO DOC FOR CLARIFICATION.
[2024-11-01] MEDS ORDERED: Insulin Glargine,Hum.Rec.Anlog 100 UNIT/ML 3MLSYR SC SCH (09:00)
--- NOTE | 2024-11-01 11:01 | NUR ---
CALL TO RESIDENT CALL PLACED TO RESIDENT ON ORDER FROM DR MILLER FOR IV PAIN MEDICATION ORDER TO BE PLACED. THIS RN ALSO NOTIFIED RESIDENT OF LAB CALL REPORTING GRAM POSITIVE COCCI IN CLUSTERS ON BLOOD CULTURE.
[2024-11-01] MEDS ORDERED: Ketorolac Tromethamine 30mg Vial IV PRN (11:35)
[2024-11-01] MEDS ORDERED: Morphine Sulfate 4 MG/1 ML Injection IV PRN (11:35)
[2024-11-01 12:08] VITALS: BP 155/90
--- NOTE | 2024-11-01 12:19 | NUR ---
Procedure postponed by surgeon, pt taken back to room 326
[2024-11-01] MEDS ORDERED: Insulin Human Lispro 100 Units/ML 3ML Syringe SC SCH (12:30)
[2024-11-01 15:34] VITALS: BP 126/59
--- NOTE | 2024-11-01 16:29 | NUR ---
SHIFT SUMMARY PATIENT A&O X4. N/V HAVE RESOLVED THIS SHIFT. PATIENT TAKING PROTEIN DRINK, SODA PO. PATIENT IS NOT AGITATED TODAY, PATIENT SLEEPING FOR MOST OF THE DAY, AROUSABLE WITH TOUCH AND SAYING HER NAME. DIRT CONTRACTOR CONSULTED PATIENT IN THE ROOM TODAY, SURGERY MOVED TO TOMORROW. NPO AFTER MIDNIGHT. FAMILY TO VISIT PATIENT TODAY. INDEPENDENT IN ROOM, USES CALL LIGHT APPROPRIATELY, ABLE TO MAKE NEEDS KNOWN. BED IN LOWEST POSITION. CALL LIGHT WITHIN REACH.
--- NOTE | 2024-11-01 18:12 | NUR ---
NO ACUTE CHANGES SINCE RN ASSUMED CARE AT 1600. MEDICATED FOR PAIN PER EMAR. WILL REPORT TO ONCOMING NOC SHIFT RN.
[2024-11-01 19:51] VITALS: BP 115/56
[2024-11-02] VITALS (14 sets, daily range): BP systolic 118–177; BP diastolic 69–108
[2024-11-02 00:18] LABS: Vancomycin, Trough 21.6 ug/mL (5.0-10.0)
--- NOTE | 2024-11-02 03:50 | NUR ---
SHIFT SUMMARY NO ACUTE EVENTS DURING THIS SHIFT. PT IS A/O X4, WITHDRAWN, COOPERATIVE WITH CARE. PT DID NOT REQUEST PAIN MEDS DURING THIS SHIFT. NPO AFTER MIDNIGHT FOR SURGERY TODAY. PT DENIES N/V, PAIN, SOB. AFEBRILE. BED AT THE LOWEST POSITION, CALL LIGHT W/I REACH. PT IS ABLE TO MAKE HER NEEDS KNOWN. IV ABX'S INFUSED ORDERED.
[2024-11-02 05:32] LABS: BASOPHILS ABSOLUTE AUTO 0.02 K/mm3 (0.00-0.23); BASOPHILS PERCENT AUTO 0 % (0-2); EOSINOPHILS ABSOLUTE AUTO 0.31 K/mm3 (0.00-0.68); EOSINOPHILS PERCENT AUTO 5 % (0-6); Hematocrit 33.0 % (33.0-51.0); Hemoglobin 10.8 g/dL (11.5-16.0); IMMATURE GRAN ABSOLUTE AUTO 0.03 K/mm3 (0.00-0.10); IMMATURE GRAN PERCENT AUTO 1 % (0-1); LYMPHOCYTES ABSOLUTE AUTO 1.66 K/mm3 (0.84-5.20); LYMPHOCYTES PERCENT AUTO 28 % (21-46); MONOCYTES ABSOLUTE AUTO 0.37 K/mm3 (0.16-1.47); MONOCYTES PERCENT AUTO 6 % (4-13); Mean Corpuscular HGB Conc 32.7 g/dL (31.5-36.5); Mean Corpuscular Volume 90 fL (80-100); NEUTROPHILS ABSOLUTE AUTO 3.62 K/mm3 (1.96-9.15); NEUTROPHILS PERCENT AUTO 60 % (41-73); NRBC ABSOLUTE 0.00 K/mm3 (0.00-0.02); NRBC Auto 0.0 /100 WBC (0.0-0.2); Platelet Count 200 K/mm3 (150-400); RDW Coefficient Variation 13.3 % (11.7-14.2); RDW Standard Deviation 44.3 fL (35.1-46.3)
[2024-11-02 05:52] LABS: Alanine Aminotransfer (ALT/SGP 32.0 U/L (12-78); Albumin, Blood 2.8 g/dL (3.4-5.0); Albumin/Globulin Ratio 0.8 (0.8-1.8); Anion Gap 7.0 mmol/L (3-11); Aspartate Aminotrans (AST/SGOT 55.0 U/L (12-37); Bilirubin, Total 0.9 mg/dL (0.1-1.0); Blood Urea Nitrogen 15.0 mg/dL (8-24); CO2, Blood 32.0 mmol/L (21-32); Calcium, Blood 8.1 mg/dL (8.5-10.1); Chloride, Blood 102.0 mmol/L (98-108); Creatinine, Blood 0.72 mg/dL (0.40-1.00); Globulin, Blood 3.7 g/dL (2.2-4.0); Glucose, Blood 171.0 mg/dL (70-99); Potassium, Blood 3.6 mmol/L (3.5-5.5); Sodium, Blood 137.0 mmol/L (136-145); Total Protein, Blood 6.5 g/dL (6.4-8.2)
--- NOTE | 2024-11-02 13:15 | NUR ---
CALL TO DOC CALLED DR. HERNANDEZ TO REPORT CBG 252 AFTER 20 UNIT LONG ACTING INSULIN, WHILE NPO, AND DUE FOR 6 UNITS OF HIGH SLIDING SCALE HUMALOG. DR. HERNANDEZ ADVISED TO GIVE 1/2 OF THE DOSE, OR 3 UNITS OF SHORT-ACTING HUMALOG DUE TO PT NPO STATUS. THIS RN VERBALIZED INSTRUCTION BACK TO FOR CLARIFICATION.
[2024-11-02] MEDS ORDERED: Lidocaine HCl 2% 10 ML SDA ONE (13:33)
[2024-11-02] MEDS ORDERED: Bupivacaine 0.5% HCl 5 MG/ML 30MLVIAL ONE (13:33)
[2024-11-02] MEDS ORDERED: FentaNYL Citrate 50 MCG/ML 2 ML Injection ONE (13:47)
[2024-11-02] MEDS ORDERED: Ondansetron HCl 2 MG / ML 2ML Vial ONE (13:47)
[2024-11-02] MEDS ORDERED: Rocuronium Bromide 10 MG/ML 5ML Injection IV ONE (13:47)
[2024-11-02] MEDS ORDERED: Dexamethasone Sod Phos 10 MG/ML 1ML VIAL ONE (13:47)
[2024-11-02] MEDS ORDERED: Ondansetron HCl 2 MG / ML 2ML Vial IV PRN (13:55)
[2024-11-02] MEDS ORDERED: FentaNYL Citrate 50 MCG/ML 2 ML Injection IV PRN ×3 (13:55)
[2024-11-02] MEDS ORDERED: HYDROmorphone HCl/Pf 1MG SYR IV PRN (13:55)
[2024-11-02] MEDS ORDERED: Ketorolac Tromethamine 30mg Vial ONE (14:19)
--- NOTE | 2024-11-02 16:30 | NUR ---
PATIENT RETURNED FROM SURGERY. RNEY TO BED SLIDE TRANSFER. STABLE VITALS. CAN WIGGLE TOES. A&OX4.
--- NOTE | 2024-11-02 17:03 | NUR ---
SHIFT SUMMARY PATIENT HAD AMPUTATION OF THE LEFT FIFTH METATARSAL TODAY. RETURNED FROM SURGERY AT 1600, STABLE AND 0/10 PAIN. PATIENT ABLE TO WIGGLE TOES. PATIENT A&OX4, CURRENTLY SITTING UP IN BED, BED IN LOWEST POSITION, USING CALL LIGHT APPROPRIATELY. SHE IS CONTINENT. ORDERS FOR NON-WEIGHT BEARING ON THE LEFT LE. FRIEND IN ROOM TO VISIT.
[2024-11-02] MEDS ORDERED: Arginine/Glutamine/Calcium Hmb 1 Packet PO SCH (21:00)
[2024-11-03 04:04] VITALS: BP 133/85
--- NOTE | 2024-11-03 05:26 | NUR ---
Shift Summary AOx4. Stand pivot w/ FWW to bsc, NWB to LLE. Surgical site dressing intact. Minimal complaints of pain, medicate x1 w/ good effect. Patient had complained of a headache. Called Resident Dr. Espinoza regarding complaint of a headache. Dr. Espinoza ordered tylenol 325mg PO which was highly effective. Medicated for back pain w/ PRNs. These were also moderately effective. Had a midnight snack, but she was emotional about even asking for a snack. When asked, patient did not want to talk about it instead became tearful, then eventually said "I'm fat and I shouldn't eat anything. I know already. Just forget it." PG AMADOU dressing change done yesterday.
[2024-11-03 05:55] LABS: BASOPHILS ABSOLUTE AUTO 0.01 K/mm3 (0.00-0.23); BASOPHILS PERCENT AUTO 0 % (0-2); EOSINOPHILS ABSOLUTE AUTO 0.05 K/mm3 (0.00-0.68); EOSINOPHILS PERCENT AUTO 1 % (0-6); Hematocrit 31.6 % (33.0-51.0); Hemoglobin 10.4 g/dL (11.5-16.0); IMMATURE GRAN ABSOLUTE AUTO 0.03 K/mm3 (0.00-0.10); IMMATURE GRAN PERCENT AUTO 0 % (0-1); LYMPHOCYTES ABSOLUTE AUTO 1.48 K/mm3 (0.84-5.20); LYMPHOCYTES PERCENT AUTO 21 % (21-46); MONOCYTES ABSOLUTE AUTO 0.58 K/mm3 (0.16-1.47); MONOCYTES PERCENT AUTO 8 % (4-13); Mean Corpuscular HGB Conc 32.9 g/dL (31.5-36.5); Mean Corpuscular Volume 90 fL (80-100); NEUTROPHILS ABSOLUTE AUTO 5.08 K/mm3 (1.96-9.15); NEUTROPHILS PERCENT AUTO 70 % (41-73); NRBC ABSOLUTE 0.00 K/mm3 (0.00-0.02); NRBC Auto 0.0 /100 WBC (0.0-0.2); Platelet Count 193 K/mm3 (150-400); RDW Coefficient Variation 13.1 % (11.7-14.2); RDW Standard Deviation 42.8 fL (35.1-46.3)
[2024-11-03 06:17] LABS: Anion Gap 7.0 mmol/L (3-11); Blood Urea Nitrogen 17.0 mg/dL (8-24); CO2, Blood 29.0 mmol/L (21-32); Calcium, Blood 8.0 mg/dL (8.5-10.1); Chloride, Blood 102.0 mmol/L (98-108); Creatinine, Blood 0.68 mg/dL (0.40-1.00); Glucose, Blood 224.0 mg/dL (70-99); Potassium, Blood 3.7 mmol/L (3.5-5.5); Sodium, Blood 134.0 mmol/L (136-145)
[2024-11-03 07:22] VITALS: BP 143/83
[2024-11-03 13:31] LABS: Vancomycin, Trough 17.8 ug/mL (5.0-10.0)
--- NOTE | 2024-11-03 14:37 | NUR ---
PER PT: DR SPARROW STATED SHE COULD BE HEEL-TOUCH WEIGHT BEARING ON RLE. CALL TO DR. SPARROW TO CLARIFY. ORDER FOR THE ABOVE WELL PT EVAL AND TREAT. ORDER READ BACK AND PLACED.
[2024-11-03 16:09] VITALS: BP 116/64
--- NOTE | 2024-11-03 18:50 | NUR ---
END OF SHIFT SUMMARY: A&Ox4. PLEASANT AND COOPERATIVE WITH CARE. CALLS APPROPRIATELY AND IS ABLE TO ADVOCATE NEEDS EFFECTIVELY. VSS. BREATHING EVEN AND UNLABORED c RA LPM/NC. CONTINENT OF BOWEL AND BLADDER; LBM 10/31. BOWEL MEDS GIVEN TODAY AND NORMOACTIVE BOWEL TONES AUSCULTATED AND REPORTS FEELING LIKE "THINGS ARE MOVING". TOLERATING DIET. MEDS WHOLE c FLUIDS. BULKY DRESSING c JORY WRAP TO LEFT FOOT. PER DR SPARROW: LEAVE DRESSING IN PLACE FOR NOW. ORDER FOR HEEL-TOUCH WEIGHT BEARING STATUS AND PT EVAL & Tx. PER PT: STAND-PIVOT ONLY DUE TO EXCESSIVE WEAKNESS. INDEPENDENT @ BASELINE. 1PA c FWW FOR IMPAIRED MOBILITY AND LINE MANAGEMENT. SOME ANXIETY NOTED TODAY WHICH SHE ATTRIBUTED TO HAVING RECENTLY BEEN ON ANESTHESIA. PRN HYDROXYZINE ADMINISTERED. PAIN RANGING FROM 3-6 FOR WHICH SHE WAS GIVEN PRN IV MORPHINE AND IV TORADOL x2 AND PO OXYCODONE x1. PLAN FOR SNF TO WHICH PT AGREES. BED IN LOWEST POSITION, CALL LIGHT WITHIN REACH, ALL NEEDS MET. REPORT TO ONCOMING NURSE.
[2024-11-03] MEDS ORDERED: Enoxaparin 40 MG/0.4 ML SYR SC SCH (19:00)
[2024-11-03 20:01] VITALS: BP 143/75
[2024-11-04 03:48] VITALS: BP 168/85
[2024-11-04 05:05] LABS: BASOPHILS ABSOLUTE AUTO 0.02 K/mm3 (0.00-0.23); BASOPHILS PERCENT AUTO 0 % (0-2); EOSINOPHILS ABSOLUTE AUTO 0.28 K/mm3 (0.00-0.68); EOSINOPHILS PERCENT AUTO 4 % (0-6); Hematocrit 30.6 % (33.0-51.0); Hemoglobin 10.0 g/dL (11.5-16.0); IMMATURE GRAN ABSOLUTE AUTO 0.03 K/mm3 (0.00-0.10); IMMATURE GRAN PERCENT AUTO 1 % (0-1); LYMPHOCYTES ABSOLUTE AUTO 2.40 K/mm3 (0.84-5.20); LYMPHOCYTES PERCENT AUTO 38 % (21-46); MONOCYTES ABSOLUTE AUTO 0.51 K/mm3 (0.16-1.47); MONOCYTES PERCENT AUTO 8 % (4-13); Mean Corpuscular HGB Conc 32.7 g/dL (31.5-36.5); Mean Corpuscular Volume 91 fL (80-100); NEUTROPHILS ABSOLUTE AUTO 3.07 K/mm3 (1.96-9.15); NEUTROPHILS PERCENT AUTO 49 % (41-73); NRBC ABSOLUTE 0.00 K/mm3 (0.00-0.02); NRBC Auto 0.0 /100 WBC (0.0-0.2); Platelet Count 181 K/mm3 (150-400); RDW Coefficient Variation 13.2 % (11.7-14.2); RDW Standard Deviation 44.0 fL (35.1-46.3)
[2024-11-04 05:40] LABS: Anion Gap 9.0 mmol/L (3-11); Blood Urea Nitrogen 23.0 mg/dL (8-24); CO2, Blood 27.0 mmol/L (21-32); Calcium, Blood 8.5 mg/dL (8.5-10.1); Chloride, Blood 103.0 mmol/L (98-108); Creatinine, Blood 0.87 mg/dL (0.40-1.00); Glucose, Blood 157.0 mg/dL (70-99); Potassium, Blood 3.8 mmol/L (3.5-5.5); Sodium, Blood 135.0 mmol/L (136-145)
--- NOTE | 2024-11-04 05:59 | NUR ---
Shift Summary POD#2. AOx4.Pleasant and cooperative. Appears to be in good spirits tonight, though it has been difficult for patient to fall asleep. Wondering if there was any way to order her something to help her fully rest for tomorrow night? Medicated x 1 for pain with good effect. Patient agreeable to discharging to SNF and has told me that she has been looking for homes. Plan: to remove and replace dressing to LLE today. Weight bearing status: Heel touch WB.
[2024-11-04 07:40] VITALS: BP 159/87
[2024-11-04] MEDS ORDERED: Enoxaparin 40 MG/0.4 ML SYR SC SCH (09:00)
[2024-11-04 10:49] VITALS: BP 158/87
[2024-11-04] MEDS ORDERED: CefTRIAXone Sodium 1,000 MG in NS 100 ML IV SCH (12:00)
[2024-11-04 13:58] LABS: Vancomycin, Trough 19.3 ug/mL (5.0-10.0)
--- NOTE | 2024-11-04 18:03 | NUR ---
SHIFT SUMMARY: PATIENT A+O X4 THROUGHOUT THIS SHIFT AND ABLE TO MAKE NEEDS KNOWN. PATIENT NOTED TO HAVE MILD ANXIETY THIS AM AND WAS GIVEN HYDROXAZINE WITH GREAT IMPROVEMENT. SEE EMAR FOR DETAILS. PATIENT ALSO GIVEN ABX THROUGHOUT THIS SHIFT. AMADOU POWERGLIDE WAS OBSEREVED TO BE LEAKING BY THIS NURSE. REMOVED POWERGLIDE. PLAN TO OBTAIN NEW POWERGLIDE AND CONTINUE ABX TREATMENT WHEN ABLE. PATIENT REMAINS HEAL-TOUCH WB WHEN AMBULATING TO BR. DRESSING CHANGED BY AMBER THIS SHIFT AND DRESSING IS NOW C/D/I. PLAN TO RETURN TO PRIOR LIVING SITUATION AND PROVIDE EXTERNAL RESOURCES NEEDED.
[2024-11-04 19:31] VITALS: BP 131/71
--- NOTE | 2024-11-04 23:28 | NUR ---
MICRO WOUND CULTURE REPORT--WOUND NEGATIVE FOR MRSA. PER ADMIN DATA PT CAN COME OUT OF ISO WITH A NEGATIVE MRSA CULTURE. ISO ORDER DC'D.
[2024-11-05 03:17] VITALS: BP 189/91
[2024-11-05 05:42] LABS: BASOPHILS ABSOLUTE AUTO 0.02 K/mm3 (0.00-0.23); BASOPHILS PERCENT AUTO 0 % (0-2); EOSINOPHILS ABSOLUTE AUTO 0.33 K/mm3 (0.00-0.68); EOSINOPHILS PERCENT AUTO 5 % (0-6); Hematocrit 31.2 % (33.0-51.0); Hemoglobin 10.2 g/dL (11.5-16.0); IMMATURE GRAN ABSOLUTE AUTO 0.02 K/mm3 (0.00-0.10); IMMATURE GRAN PERCENT AUTO 0 % (0-1); LYMPHOCYTES ABSOLUTE AUTO 1.84 K/mm3 (0.84-5.20); LYMPHOCYTES PERCENT AUTO 29 % (21-46); MONOCYTES ABSOLUTE AUTO 0.53 K/mm3 (0.16-1.47); MONOCYTES PERCENT AUTO 8 % (4-13); Mean Corpuscular HGB Conc 32.7 g/dL (31.5-36.5); Mean Corpuscular Volume 91 fL (80-100); NEUTROPHILS ABSOLUTE AUTO 3.58 K/mm3 (1.96-9.15); NEUTROPHILS PERCENT AUTO 57 % (41-73); NRBC ABSOLUTE 0.00 K/mm3 (0.00-0.02); NRBC Auto 0.0 /100 WBC (0.0-0.2); Platelet Count 200 K/mm3 (150-400); RDW Coefficient Variation 13.3 % (11.7-14.2); RDW Standard Deviation 44.2 fL (35.1-46.3)
[2024-11-05 05:46] LABS: Anion Gap 7.0 mmol/L (3-11); Blood Urea Nitrogen 16.0 mg/dL (8-24); CO2, Blood 28.0 mmol/L (21-32); Calcium, Blood 8.2 mg/dL (8.5-10.1); Chloride, Blood 107.0 mmol/L (98-108); Creatinine, Blood 0.66 mg/dL (0.40-1.00); Glucose, Blood 109.0 mg/dL (70-99); Potassium, Blood 3.8 mmol/L (3.5-5.5); Sodium, Blood 138.0 mmol/L (136-145)
--- NOTE | 2024-11-05 06:39 | NUR ---
Shift Summary Pt LLE painful at the start of the shift, medicated once with PRN morphine and then 1 hour later with PRN toradol and no further complaints of pain t/o the night. She did rcv benedryl x1 to help sleep and then Atarax x1 for anxiety around 0400. Dressing remains C/D/I. She is able to ambulate with 1 SBA with a FWW putting weight on her heel of her L foot. She is AOx4, slept t/o most of the night.
[2024-11-05 08:44] VITALS: BP 164/79
[2024-11-05] MEDS ORDERED: Insulin Human Lispro 100 Units/ML 3ML Syringe SC SCH (11:30)
[2024-11-05] MEDS ORDERED: Pantoprazole Sodium 40 MG Injection IV SCH (12:00)
[2024-11-05 14:53] VITALS: BP 150/87
--- NOTE | 2024-11-05 18:21 | NUR ---
SHIFT SUMMARY: NO NEW OR ACUTE CHANGES DURING THIS SHIFT. PLAN TO D/C TO SNF WITHIN THIS NEXT WEEK. PATIENT HAS NO NEEDS CURRENTY. PLAN OF CARE ONGOING AT THIS TIME.
[2024-11-05 19:42] VITALS: BP 144/76
--- NOTE | 2024-11-06 02:10 | NUR ---
8/10 pain, tearful, pt concern for hypoglycemia Entered room and patient dangling at EOB just tearful and sobbing. Patient had just returned from the bathroom like she has been doing all day long and now the pain in her left foot acting up. Pt verbalizes compliance w/ weight bearing restrictions. States 8/10 pain to left foot. Also c/o feeling like her blood sugar is low. Blood glucose checked, is 170's. Medicated per EMAR, pain still high but much more tolerable as evidence by crying ceased, pt able to conversate about other topics, patient returning to watters position in bed.
[2024-11-06 04:19] VITALS: BP 143/72
--- NOTE | 2024-11-06 05:50 | NUR ---
SHIFT SUMMARY PT SLEPT ONLY SHORT INTERVALS DURING THE NIGHT. MEDICATED FOR PAIN X2 WITH MORPHINE PER EMAR. PT OOB INDEPENDENTLY TO BATHROOM, HEEL TOUCH WEIGHT BEARING TO LLE. PT DENIES ANY BOWEL MOVEMENT DURING THE NIGHT. GI PANEL IS STILL NEEDING TO BE COLLECTED- PT STATES SHE FEELS HER LOOSE STOOLS WERE DUE TO EATING BROCCOLI AND NOT ANYTHING INFECTIOUS, BUT VERBALIZES UNDERSTANDING OF NEED TO COLLECT STOOL FOR SAMPLE.
[2024-11-06 05:56] LABS: Hematocrit 32.4 % (33.0-51.0); Hemoglobin 10.8 g/dL (11.5-16.0); Mean Corpuscular HGB Conc 33.3 g/dL (31.5-36.5); Mean Corpuscular Volume 89 fL (80-100); NRBC ABSOLUTE 0.00 K/mm3 (0.00-0.02); NRBC Auto 0.0 /100 WBC (0.0-0.2); Platelet Count 208 K/mm3 (150-400); RDW Coefficient Variation 13.4 % (11.7-14.2); RDW Standard Deviation 43.9 fL (35.1-46.3)
[2024-11-06 06:23] LABS: Alanine Aminotransfer (ALT/SGP 25.0 U/L (12-78); Albumin, Blood 2.8 g/dL (3.4-5.0); Albumin/Globulin Ratio 0.7 (0.8-1.8); Anion Gap 8.0 mmol/L (3-11); Aspartate Aminotrans (AST/SGOT 19.0 U/L (12-37); Bilirubin, Total 0.6 mg/dL (0.1-1.0); Blood Urea Nitrogen 11.0 mg/dL (8-24); CO2, Blood 26.0 mmol/L (21-32); Calcium, Blood 8.8 mg/dL (8.5-10.1); Chloride, Blood 104.0 mmol/L (98-108); Creatinine, Blood 0.67 mg/dL (0.40-1.00); Globulin, Blood 3.9 g/dL (2.2-4.0); Glucose, Blood 150.0 mg/dL (70-99); Potassium, Blood 4.1 mmol/L (3.5-5.5); Sodium, Blood 134.0 mmol/L (136-145); Total Protein, Blood 6.7 g/dL (6.4-8.2)
[2024-11-06 07:50] VITALS: BP 151/80
[2024-11-06] MEDS ORDERED: Metoclopramide HCl 5MG / ML 2ML Vial IV SCH (13:00)
[2024-11-06 13:27] LABS: Vancomycin, Trough 2.6 ug/mL (5.0-10.0)
[2024-11-06 15:12] VITALS: BP 130/76
--- NOTE | 2024-11-06 19:36 | NUR ---
SHIFT SUMMARY: NO NEW OR ACUTE CHANGES DURING THIS SHIFT. PLAN IS TO STILL D/C TO SNF WITHIN THIS UPCOMING WEEK. PATIENT REMAINS HOPEFUL ON CURRENT LIVING SITUATION. IV ABX ADMINISTERED THIS SHIFT, SEE EMAR FOR DETAILS.
[2024-11-06 19:42] VITALS: BP 134/81
[2024-11-07 04:24] VITALS: BP 122/69
--- NOTE | 2024-11-07 04:47 | NUR ---
SHIFT SUMMARY: AOX4, IND IN THE ROOM, HEAL TOUCH ON L FOOT. PT TOLERATING MEDICATIONS WELL. DENIES SOB AND CP. COMPLAINTS OF PAIN, MEDICATED PER EMR. NO ACUTE OVERNIGHT EVENTS. DRESSING CDI. PT IN BED RESTING, BED IN LOWEST POSITION, CALL LIGHT IN REACH. CONTINUING CARE.
[2024-11-07 06:05] LABS: BASOPHILS ABSOLUTE AUTO 0.03 K/mm3 (0.00-0.23); BASOPHILS PERCENT AUTO 0 % (0-2); EOSINOPHILS ABSOLUTE AUTO 0.42 K/mm3 (0.00-0.68); EOSINOPHILS PERCENT AUTO 5 % (0-6); Hematocrit 35.0 % (33.0-51.0); Hemoglobin 11.8 g/dL (11.5-16.0); IMMATURE GRAN ABSOLUTE AUTO 0.03 K/mm3 (0.00-0.10); IMMATURE GRAN PERCENT AUTO 0 % (0-1); LYMPHOCYTES ABSOLUTE AUTO 2.10 K/mm3 (0.84-5.20); LYMPHOCYTES PERCENT AUTO 26 % (21-46); MONOCYTES ABSOLUTE AUTO 0.65 K/mm3 (0.16-1.47); MONOCYTES PERCENT AUTO 8 % (4-13); Mean Corpuscular HGB Conc 33.7 g/dL (31.5-36.5); Mean Corpuscular Volume 89 fL (80-100); NEUTROPHILS ABSOLUTE AUTO 4.85 K/mm3 (1.96-9.15); NEUTROPHILS PERCENT AUTO 60 % (41-73); NRBC ABSOLUTE 0.00 K/mm3 (0.00-0.02); NRBC Auto 0.0 /100 WBC (0.0-0.2); Platelet Count 241 K/mm3 (150-400); RDW Coefficient Variation 13.3 % (11.7-14.2); RDW Standard Deviation 43.3 fL (35.1-46.3)
[2024-11-07 06:25] LABS: Alanine Aminotransfer (ALT/SGP 34.0 U/L (12-78); Albumin, Blood 2.9 g/dL (3.4-5.0); Albumin/Globulin Ratio 0.7 (0.8-1.8); Anion Gap 7.0 mmol/L (3-11); Aspartate Aminotrans (AST/SGOT 32.0 U/L (12-37); Bilirubin, Total 0.7 mg/dL (0.1-1.0); Blood Urea Nitrogen 13.0 mg/dL (8-24); CO2, Blood 27.0 mmol/L (21-32); Calcium, Blood 9.0 mg/dL (8.5-10.1); Chloride, Blood 105.0 mmol/L (98-108); Creatinine, Blood 0.6 mg/dL (0.40-1.00); Globulin, Blood 4.0 g/dL (2.2-4.0); Glucose, Blood 155.0 mg/dL (70-99); Potassium, Blood 4.3 mmol/L (3.5-5.5); Sodium, Blood 135.0 mmol/L (136-145); Total Protein, Blood 6.9 g/dL (6.4-8.2)
[2024-11-07 08:07] VITALS: BP 146/94
[2024-11-07 15:49] VITALS: BP 140/91
--- NOTE | 2024-11-07 18:07 | NUR ---
SHIFT SUMMARY: A&OX4. PLEASANT AND COOPERATIVE WITH CARE. PT OUT OF BED INDEPENDENTLY THROUGHOUT SHIFT. MEDICATED FOR PAIN PER EMAR AND DISCUSSED WITH MD ABOUT ORAL PAIN MEDS. NO ACUTE EVENTS. O2 SATS >90% ON ROOM AIR. BREATHING EQUAL AND NONLABORED. LYING IN BED AT THIS TIME. BED LOCKED AND IN THE LOWEST POSITION. CALL LT WITHIN REACH.
[2024-11-07] MEDS ORDERED: OxyCODONE 5 mg/Acetamin 325 mg TABLET PO PRN (18:20)
[2024-11-07 19:31] VITALS: BP 117/69
[2024-11-08 04:15] VITALS: BP 105/67
--- NOTE | 2024-11-08 04:30 | NUR ---
SHIFT SUMMARY: PT AOX4, PT IND IN THE ROOM. CALLS APPROPRIATELY AND ABLE TO MAKE NEEDS KNOWN. PT DECLINED ZANDER AND LOVENOX. SLEPT WELL THROUGH THE NIGHT. FEELS A LOT BETTER AFTER SLEEPING WELL THE NIGHT PRIOR. PT TOLERATING MEDICATIONS WELL. NO ACUTE OVERNIGHT EVENTS. PT IN BED SLEEPING, BED IN LOWEST, CALL LIGHT IN REACH. CONTINUING CARE.
[2024-11-08 06:03] LABS: BASOPHILS ABSOLUTE AUTO 0.03 K/mm3 (0.00-0.23); BASOPHILS PERCENT AUTO 0 % (0-2); EOSINOPHILS ABSOLUTE AUTO 0.46 K/mm3 (0.00-0.68); EOSINOPHILS PERCENT AUTO 6 % (0-6); Hematocrit 36.2 % (33.0-51.0); Hemoglobin 12.1 g/dL (11.5-16.0); IMMATURE GRAN ABSOLUTE AUTO 0.03 K/mm3 (0.00-0.10); IMMATURE GRAN PERCENT AUTO 0 % (0-1); LYMPHOCYTES ABSOLUTE AUTO 2.43 K/mm3 (0.84-5.20); LYMPHOCYTES PERCENT AUTO 33 % (21-46); MONOCYTES ABSOLUTE AUTO 0.61 K/mm3 (0.16-1.47); MONOCYTES PERCENT AUTO 8 % (4-13); Mean Corpuscular HGB Conc 33.4 g/dL (31.5-36.5); Mean Corpuscular Volume 90 fL (80-100); NEUTROPHILS ABSOLUTE AUTO 3.87 K/mm3 (1.96-9.15); NEUTROPHILS PERCENT AUTO 52 % (41-73); NRBC ABSOLUTE 0.00 K/mm3 (0.00-0.02); NRBC Auto 0.0 /100 WBC (0.0-0.2); Platelet Count 261 K/mm3 (150-400); RDW Coefficient Variation 13.6 % (11.7-14.2); RDW Standard Deviation 44.6 fL (35.1-46.3)
[2024-11-08 06:26] LABS: Anion Gap 10.0 mmol/L (3-11); Blood Urea Nitrogen 21.0 mg/dL (8-24); CO2, Blood 25.0 mmol/L (21-32); Calcium, Blood 9.0 mg/dL (8.5-10.1); Chloride, Blood 105.0 mmol/L (98-108); Creatinine, Blood 0.71 mg/dL (0.40-1.00); Glucose, Blood 155.0 mg/dL (70-99); Potassium, Blood 4.0 mmol/L (3.5-5.5); Sodium, Blood 136.0 mmol/L (136-145)
[2024-11-08 07:43] VITALS: BP 121/64
[2024-11-08 15:32] VITALS: BP 135/96
--- NOTE | 2024-11-08 18:25 | NUR ---
SHIFT SUMMARY PT A&OX4, VSS, RA, NON-TELE. DRESSING IN PLACE ON L FOOT CDI. PT IND IN ROOM. PT DENIED PAIN, ATARAX GIVEN X1 FOR ANXIETY. IV ANTIBIOTICS CONTINUED, WAITING ON TISSUE PATHOLOGY. ABLE TO MAKE NEEDS KNOWN, CALL LIGHT IN REACH.
[2024-11-08 19:25] VITALS: BP 133/92
--- NOTE | 2024-11-09 04:38 | NUR ---
SHIFT SUMMARY: PT AOX4 IND IN THE ROOM. CALLS APPROPRAITELY AND ABLE TO MAKE NEEDS KNOWN. WAS VERY UPSET AND IN A LOT OF DISTRESS IN WAITING TO FIGURE OUT THE PLAN. FEELS LIKE SHES "WASTING AWAY" IN THE HOSPITAL ROOM. TALKED TO PATIENT ABOUT WHY WE NEED TO WAIT FOR PATHOLOGY AND EXPLAINED THE RATIONALE. REMAINED UPSET AND ANXIOUS. WHEN I RETURNED FOR EVENING MEDS SHE APOLOGIZED FOR HAVING THE OUTBURST BUT STATED SHE WAS STILL ANXIOUS. HAS BEEN PLEASANT SINCE. SLEPT THROUGH THE NIGHT WITHOUT ISSUE. NO ACUTE EVENTS OVERNIGHT. PT IN BED SLEEPING, BED IN LOWEST POSITION, CALL LIGHT IN REACH. CONTINUING CARE.
[2024-11-09 05:35] VITALS: BP 130/90
[2024-11-09 05:53] LABS: Hematocrit 36.9 % (33.0-51.0); Hemoglobin 12.8 g/dL (11.5-16.0); Mean Corpuscular HGB Conc 34.7 g/dL (31.5-36.5); Mean Corpuscular Volume 89 fL (80-100); NRBC ABSOLUTE 0.00 K/mm3 (0.00-0.02); NRBC Auto 0.0 /100 WBC (0.0-0.2); Platelet Count 264 K/mm3 (150-400); RDW Coefficient Variation 13.7 % (11.7-14.2); RDW Standard Deviation 44.1 fL (35.1-46.3)
[2024-11-09 06:38] LABS: Anion Gap 10.0 mmol/L (3-11); Blood Urea Nitrogen 29.0 mg/dL (8-24); CO2, Blood 25.0 mmol/L (21-32); Calcium, Blood 9.1 mg/dL (8.5-10.1); Chloride, Blood 103.0 mmol/L (98-108); Creatinine, Blood 0.66 mg/dL (0.40-1.00); Glucose, Blood 179.0 mg/dL (70-99); Potassium, Blood 3.9 mmol/L (3.5-5.5); Sodium, Blood 134.0 mmol/L (136-145)
[2024-11-09 07:22] VITALS: BP 129/81
[2024-11-09 15:17] VITALS: BP 123/81
--- NOTE | 2024-11-09 17:56 | NUR ---
End of shift summary: Patient is alert and oriented x4; pleasant with care; occassional anxiety and tearfulness noted d/t wanting to go home. PCP is aware and medications are ordered, utilized and effective. Patient with no complaint of SOB, CP, N/V/D today; does have some pain and medicated per EMAR. No acute changes this shift. All medications administered per EMAR. Patient remains independent in room for ambulation; utilizing call light appropriately; call light within reach and bed in lowest position. Will continue to monitor until next shift nurse arrives and report is given.
[2024-11-09 19:30] VITALS: BP 127/77
[2024-11-10 03:48] VITALS: BP 118/101
--- NOTE | 2024-11-10 04:11 | NUR ---
SHIFT SUMMARY: AOX4. VSS. AMBULATES INDEPENDENTLY IN ROOM. DRESSING TO L FOOT C/D/I. DENIES PAIN. CALL LIGHT IS WITHIN REACH. BED IS LOW AND LOCKED.
[2024-11-10 06:01] LABS: BASOPHILS ABSOLUTE AUTO 0.02 K/mm3 (0.00-0.23); BASOPHILS PERCENT AUTO 0 % (0-2); EOSINOPHILS ABSOLUTE AUTO 0.37 K/mm3 (0.00-0.68); EOSINOPHILS PERCENT AUTO 5 % (0-6); Hematocrit 36.9 % (33.0-51.0); Hemoglobin 12.4 g/dL (11.5-16.0); IMMATURE GRAN ABSOLUTE AUTO 0.02 K/mm3 (0.00-0.10); IMMATURE GRAN PERCENT AUTO 0 % (0-1); LYMPHOCYTES ABSOLUTE AUTO 2.32 K/mm3 (0.84-5.20); LYMPHOCYTES PERCENT AUTO 33 % (21-46); MONOCYTES ABSOLUTE AUTO 0.59 K/mm3 (0.16-1.47); MONOCYTES PERCENT AUTO 8 % (4-13); Mean Corpuscular HGB Conc 33.6 g/dL (31.5-36.5); Mean Corpuscular Volume 90 fL (80-100); NEUTROPHILS ABSOLUTE AUTO 3.74 K/mm3 (1.96-9.15); NEUTROPHILS PERCENT AUTO 53 % (41-73); NRBC ABSOLUTE 0.00 K/mm3 (0.00-0.02); NRBC Auto 0.0 /100 WBC (0.0-0.2); Platelet Count 226 K/mm3 (150-400); RDW Coefficient Variation 13.8 % (11.7-14.2); RDW Standard Deviation 45.1 fL (35.1-46.3)
[2024-11-10 06:36] LABS: Anion Gap 7.0 mmol/L (3-11); Blood Urea Nitrogen 28.0 mg/dL (8-24); CO2, Blood 27.0 mmol/L (21-32); Calcium, Blood 9.1 mg/dL (8.5-10.1); Chloride, Blood 104.0 mmol/L (98-108); Creatinine, Blood 0.6 mg/dL (0.40-1.00); Glucose, Blood 177.0 mg/dL (70-99); Potassium, Blood 3.9 mmol/L (3.5-5.5); Sodium, Blood 134.0 mmol/L (136-145)
[2024-11-10 07:42] VITALS: BP 127/72
--- NOTE | 2024-11-10 18:33 | NUR ---
ASSUMED CARE PLEASENT PT, A/O X 4 ANXIOUSLY WAITING FOR BONE CULTURES TO ARRIVE SO SHE CAN DISCHARGE, PT HAS HAD CALL LIGHT AND MAKES NEEDS KNOWN. MINIMAL PAIN NOTED TO LOWER EXTREMITY POWERGLIDE INTACT AND FUNCTIONAL.
--- NOTE | 2024-11-10 18:35 | NUR ---
DRESSING CHANGED LEFT FOOT DRESSING CHANGED, MINIMAL DRAINAGE NOTED TO FOOT. FOOT CLEANSED, WITH SPRAY BANKING REPRESENTATIVE AND PROVIDINE, COVERED WITH XEROFORM, 4X4, ABD, KERLIX AND JORY WRAP. PT FEI WELL.
[2024-11-10 20:46] VITALS: BP 129/78
[2024-11-11 03:09] VITALS: BP 107/60
--- NOTE | 2024-11-11 04:47 | NUR ---
Patient alert and oriented, contact isolation in place, denies pain at present time, given benadryl and hydroxizine at bedtime, educated to ask for pain medication when needed, left foot wrapped in kerlex dressing, small dried spot noted on ball of foot, dressing changed on day shift, heel touch weight bearing status to left foot, up independently in room, blood sugar monitored per order, call light in reach, bed in low and locked position, will continue to monitor
[2024-11-11 06:18] LABS: BASOPHILS ABSOLUTE AUTO 0.03 K/mm3 (0.00-0.23); BASOPHILS PERCENT AUTO 0 % (0-2); EOSINOPHILS ABSOLUTE AUTO 0.40 K/mm3 (0.00-0.68); EOSINOPHILS PERCENT AUTO 6 % (0-6); Hematocrit 36.5 % (33.0-51.0); Hemoglobin 12.1 g/dL (11.5-16.0); IMMATURE GRAN ABSOLUTE AUTO 0.02 K/mm3 (0.00-0.10); IMMATURE GRAN PERCENT AUTO 0 % (0-1); LYMPHOCYTES ABSOLUTE AUTO 2.51 K/mm3 (0.84-5.20); LYMPHOCYTES PERCENT AUTO 36 % (21-46); MONOCYTES ABSOLUTE AUTO 0.67 K/mm3 (0.16-1.47); MONOCYTES PERCENT AUTO 10 % (4-13); Mean Corpuscular HGB Conc 33.2 g/dL (31.5-36.5); Mean Corpuscular Volume 89 fL (80-100); NEUTROPHILS ABSOLUTE AUTO 3.35 K/mm3 (1.96-9.15); NEUTROPHILS PERCENT AUTO 48 % (41-73); NRBC ABSOLUTE 0.00 K/mm3 (0.00-0.02); NRBC Auto 0.0 /100 WBC (0.0-0.2); Platelet Count 229 K/mm3 (150-400); RDW Coefficient Variation 13.5 % (11.7-14.2); RDW Standard Deviation 44.0 fL (35.1-46.3)
[2024-11-11 06:45] LABS: Alanine Aminotransfer (ALT/SGP 24.0 U/L (12-78); Albumin, Blood 3.1 g/dL (3.4-5.0); Albumin/Globulin Ratio 0.8 (0.8-1.8); Anion Gap 9.0 mmol/L (3-11); Aspartate Aminotrans (AST/SGOT 14.0 U/L (12-37); Bilirubin, Total 0.7 mg/dL (0.1-1.0); Blood Urea Nitrogen 46.0 mg/dL (8-24); CO2, Blood 27.0 mmol/L (21-32); Calcium, Blood 8.9 mg/dL (8.5-10.1); Chloride, Blood 101.0 mmol/L (98-108); Creatinine, Blood 0.62 mg/dL (0.40-1.00); Globulin, Blood 4.0 g/dL (2.2-4.0); Glucose, Blood 191.0 mg/dL (70-99); Potassium, Blood 3.7 mmol/L (3.5-5.5); Sodium, Blood 133.0 mmol/L (136-145); Total Protein, Blood 7.1 g/dL (6.4-8.2)
[2024-11-11 07:45] VITALS: BP 124/80
[2024-11-11] MEDS ORDERED: ACET325 PO (14:47)
[2024-11-11] MEDS ORDERED: JUVEN PACKET1 EAC3 PO (14:47)
[2024-11-11] MEDS ORDERED: LOSA50 PO (14:50)
[2024-11-11] MEDS ORDERED: HUMALOG KW100 UNIT/1 SC (14:50)
[2024-11-11] MEDS ORDERED: METO5A PO (14:51)
[2024-11-11] MEDS ORDERED: Pepcid 20 mg Ta20 MG PO (14:52)
[2024-11-11] MEDS ORDERED: Percocet 5-3251 EACH PO (14:52)
[2024-11-11 15:31] VITALS: BP 141/79
--- NOTE | 2024-11-11 17:02 | NUR ---
DISCHARGE SUMMARY PATIENT HAS BEEN COOPERATIVE WITH CARE AND HAS SEEMED FOCUSED ON GETTING BETTER. PATIENT HAS BEEN A&OX4, EDUCATED ON DISCHARGE PLANS/MEDS/AND CONDITION, EXTENDED DWELL TAKEN OUT, ROOM CHECKED WITH PATIENT AND STAFF TO MAKE SURE NO BELONGINGS WERE LEFT. PATIENT WAS TRANSPORTED BY A MEDICAL TRANSPORT TO [facility]. NO DISTRESS NOTED.
--- NOTE | 2024-11-11 17:09 | NUR ---
THIS DRAWBRIDGE TENDER HAS REVIEWED AND AGREES WITH ALL NOTES AND ASSESSMENTS BY JACINDA ESCOBEDO.
== END 2024-11-11 17:13 | DRG 617 ==
LOC: ER 06:59 → MEDS 12:19 → ERHOLD 12:19 → MEDS 16:44 → ENPENDDIS 11-11 14:06 → MEDS 11-11 17:13
PROVIDERS: Podiatrist Foot & Ankle Surgery; Student in an Organized Health Care Education/Training Program; ADMIT Internal Medicine
PROC: 3E03329 Introduction of Other Anti-infective into Peripheral Vein, Percutaneous Approach (ICD-10-PCS; 2024-10-31)
PROC: 0QBR0ZX Excision of Left Toe Phalanx, Open Approach, Diagnostic (ICD-10-PCS; 2024-11-02)
PROC: 0Y6Y0Z0 Detachment at Left 5th Toe, Complete, Open Approach (ICD-10-PCS; principal; 2024-11-02 14:00)
DX: E11.69 Type 2 diabetes mellitus with other specified complication (principal); E87.1 Hypo-osmolality and hyponatremia; I20.0 Unstable angina; Z59.00 Homelessness unspecified; L03.116 Cellulitis of left lower limb; M86.172 Other acute osteomyelitis, left ankle and foot; Z68.42 Body mass index [BMI] 45.0-49.9, adult; R78.81 Bacteremia; L02.612 Cutaneous abscess of left foot; E87.21 Acute metabolic acidosis; G47.33 Obstructive sleep apnea (adult) (pediatric); E11.43 Type 2 diabetes mellitus with diabetic autonomic (poly)neuropathy; K31.84 Gastroparesis; G43.909 Migraine, unspecified, not intractable, without status migrainosus; J45.909 Unspecified asthma, uncomplicated; E11.65 Type 2 diabetes mellitus with hyperglycemia; E66.01 Morbid (severe) obesity due to excess calories; F12.10 Cannabis abuse, uncomplicated; F41.8 Other specified anxiety disorders; B96.89 Other specified bacterial agents as the cause of diseases classified elsewhere; E11.621 Type 2 diabetes mellitus with foot ulcer; L97.529 Non-pressure chronic ulcer of other part of left foot with unspecified severity; R11.2 Nausea with vomiting, unspecified; L89.619 Pressure ulcer of right heel, unspecified stage; L89.629 Pressure ulcer of left heel, unspecified stage; I10 Essential (primary) hypertension; G47.00 Insomnia, unspecified; E03.9 Hypothyroidism, unspecified; B95.5 Unspecified streptococcus as the cause of diseases classified elsewhere; Z86.19 Personal history of other infectious and parasitic diseases; Z86.711 Personal history of pulmonary embolism; Z90.49 Acquired absence of other specified parts of digestive tract; Z98.890 Other specified postprocedural states; Z87.891 Personal history of nicotine dependence; Z79.4 Long term (current) use of insulin; Z79.899 Other long term (current) drug therapy; Z89.411 Acquired absence of right great toe; Z88.2 Allergy status to sulfonamides; Z88.8 Allergy status to other drugs, medicaments and biological substances; Z91.018 Allergy to other foods
CPT/HCPCS: 36415; 73610; 73630; 73701; 80048; 80053; 80202; 82947; 83605; 85025; 85027; 85651; 86140; 87040; 87070; 87071; 87075; 87077; 87186; 87205; 88305; 88311; 96361; 96374-59; 96375; 97110; 97116; 97161; 97530; 99285-25; A6253; A9270; C1751; J0696; J1100; J1650; J1815; J1885; J2003; J2060; J2270; J2405; J2470; J2543; J2704; J2765; J3010; J3373; J7030; J7040; J7050; J7120; Q9967

== ENCOUNTER 2024-12-19 04:51 | Emergency (ER) | payer OTHER ==
[~2024-12-19] VITALS: Ht 172.7 cm; Wt 163.3 kg
[~2024-12-19 04:51] MED LIST changes: +JUVEN PACKET1 EAC3 PO; +LOSA50 PO; +Pepcid 20 mg Ta20 MG PO
[2024-12-19] MEDS ORDERED: Lidocaine 2% Viscous Soln 15 ML UDC PO ONE (05:20)
[2024-12-19 05:35] LABS: BASOPHILS ABSOLUTE AUTO 0.02 K/mm3 (0.00-0.23); BASOPHILS PERCENT AUTO 0 % (0-2); EOSINOPHILS ABSOLUTE AUTO 0.03 K/mm3 (0.00-0.68); EOSINOPHILS PERCENT AUTO 0 % (0-6); Hematocrit 36.7 % (33.0-51.0); Hemoglobin 13.1 g/dL (11.5-16.0); IMMATURE GRAN ABSOLUTE AUTO 0.05 K/mm3 (0.00-0.10); IMMATURE GRAN PERCENT AUTO 0 % (0-1); LYMPHOCYTES ABSOLUTE AUTO 0.75 K/mm3 (0.84-5.20); LYMPHOCYTES PERCENT AUTO 6 % (21-46); MONOCYTES ABSOLUTE AUTO 0.48 K/mm3 (0.16-1.47); MONOCYTES PERCENT AUTO 4 % (4-13); Mean Corpuscular HGB Conc 35.7 g/dL (31.5-36.5); Mean Corpuscular Volume 86 fL (80-100); NEUTROPHILS ABSOLUTE AUTO 12.31 K/mm3 (1.96-9.15); NEUTROPHILS PERCENT AUTO 90 % (41-73); NRBC ABSOLUTE 0.00 K/mm3 (0.00-0.02); NRBC Auto 0.0 /100 WBC (0.0-0.2); RDW Coefficient Variation 14.3 % (11.7-14.2); RDW Standard Deviation 44.2 fL (35.1-46.3)
[2024-12-19] MEDS ORDERED: Ondansetron HCl 2 MG / ML 2ML Vial IM ONE (05:45)
[2024-12-19] MEDS ORDERED: Metoclopramide HCl 5MG / ML 2ML Vial IM ONE (05:50)
[2024-12-19 05:53] LABS: Alanine Aminotransfer (ALT/SGP 30 U/L (12-78); Albumin, Blood 3.6 g/dL (3.4-5.0); Albumin/Globulin Ratio 0.9 (0.8-1.8); Anion Gap 11 mmol/L (3-11); Aspartate Aminotrans (AST/SGOT 77 U/L (12-37); Bilirubin, Total 1.9 mg/dL (0.1-1.0); Blood Urea Nitrogen 18 mg/dL (8-24); CO2, Blood 30 mmol/L (21-32); Calcium, Blood 9.4 mg/dL (8.5-10.1); Chloride, Blood 98 mmol/L (98-108); Creatinine, Blood 0.46 mg/dL (0.40-1.00); Globulin, Blood 4.2 g/dL (2.2-4.0); Glucose, Blood 230 mg/dL (70-99); Magnesium, Blood 1.8 mg/dL (1.6-2.4); Potassium, Blood 4.4 mmol/L (3.5-5.5); Sodium, Blood 135 mmol/L (136-145); Total Protein, Blood 7.8 g/dL (6.4-8.2)
[2024-12-19 05:55] LABS: Platelet Count 203 K/mm3 (150-400)
[2024-12-19 08:19] LABS: Source, Urine Clean Catch
[2024-12-19 08:24] LABS: Bilirubin, Urine Neg (Neg); Color, Urine Yellow (P-Yellow); Glucose Qualitative, Urine 4+ (Neg); Ketones, Urine 4+ (Neg); Leukocyte Esterase, Urine Neg (Neg); Protein, Urine 3+ (Neg); Specific Gravity, Urine 1.015 (1.003-1.022); Urobilinogen, Urine NORM (Normal)
[2024-12-19] MEDS ORDERED: Haloperidol Lactate Inj. 5 MG/ML Injection IM ONE (09:35)
[2024-12-19] MEDS ORDERED: OMEP20ER PO (12:08)
[2024-12-19] MEDS ORDERED: PROM12.5S PR (12:08)
[2024-12-19 13:13] VITALS: BP 175/99
== END 2024-12-19 13:16 ==
LOC: ER 04:51
PROVIDERS: Student in an Organized Health Care Education/Training Program
DX: K21.9 Gastro-esophageal reflux disease without esophagitis (principal); E11.65 Type 2 diabetes mellitus with hyperglycemia; E87.1 Hypo-osmolality and hyponatremia; G47.33 Obstructive sleep apnea (adult) (pediatric); J45.909 Unspecified asthma, uncomplicated; Z87.19 Personal history of other diseases of the digestive system; Z87.891 Personal history of nicotine dependence; Z88.2 Allergy status to sulfonamides; Z88.1 Allergy status to other antibiotic agents; Z91.018 Allergy to other foods; Z91.09 Other allergy status, other than to drugs and biological substances; Z79.4 Long term (current) use of insulin; Z79.899 Other long term (current) drug therapy
CPT/HCPCS: 80053; 81001; 81025; 83690; 83735; 85025; 93005; 93010; 96372; 99285-25; A9270; J1630; J2765